=== PATIENT | female | born 1945 | race Caucasian/White ===

== ENCOUNTER 2019-10-18 06:44 | Inpatient (IN) ==
[2019-10-18 07:17] LABS: ALLEN TEST YES; BE -0.9 mmoll (-3.0-3.0); BLOOD TYPE ARTERIAL; HCO3-(ACT) 24.2 mmoll (20.0-26.0); METHB 1.2 % (0.0-1.5); O2(CT) 21.9 mL/dL (15.0-23.0); O2HB 97.2 % (95.0-99.0); PO2(98.6) 269 mmHg (60-100); SAMPLE BLOOD; SAO2 100.3 % (95.0-100.0); THB 15.6 g/dL (11.5-17.4)
[2019-10-18 07:20] LABS: MODALITY NRB; PCO2(98.6) 76 mmHg (35-45)
[2019-10-18] MEDS ORDERED: DUONEB (A & A) INH ONE (07:20)
--- NOTE | 2019-10-18 07:24 | PROVIDER DOCUMENTATION ---
HPI-General Adult - General Chief Complaint: SEPSIS ALERT - D Stated Complaint: RESP DISTRESS Time Seen by Provider: 10/18/19 07:15 Source: EMS, [facility] records Allergies/Adverse Reactions: Patient Allergies Allergy/AdvReac Type Severity Reaction Status Date / Time No Known Allergies Allergy Verified 10/18/19 08:20 - History of Present Illness -Gen Adult Nature of Presenting Problems: FOUND THIS MORINING IN RESP DISTRESS BY N HOME STAFF. HX OF COPD /W P OX USUSALLY 88%, THIS MORN ONL 50%. UP TO 98% WITH EMS NON-REBREATHER. PT IS AWAKE , HARD OF HEARING. Review of Systems - Adult - REVIEW OF SYSTEMS - ADULT Constitutional: reports: no symptoms reported. denies: fever Eyes: reports: no symptoms reported Ears, Nose, Mouth & Throat: reports: no symptoms reported Cardiovascular: reports: no symptoms reported Respiratory: reports: no symptoms reported Gastrointestinal: reports: no symptoms reported Genitourinary: reports: no symptoms reported Musculoskeletal: reports: no symptoms reported Integumentary: reports: no symptoms reported Neurological: reports: no symptoms reported Psychiatric: reports: no symptoms reported Endocrine: reports: no symptoms reported Hematologic/Lymphatic: reports: no symptoms reported Allergic/Immunologic: reports: no symptoms reported All Other Systems: Reviewed and Negative Past History - Adult - PAST MEDICAL HISTORY-ADULT Review of Records: reports: Old Records Reviewed, Nursing Assessment Review, Medications Reviewed, Social history reviewed & non-contributory. Major Childhood Illnesses: reports: denies history Cardiovascular: reports: denies history Respiratory: reports: denies history Gastrointestinal: reports: denies history Obstetrical/Gynecological: reports: denies history Genitourinary: reports: denies history Musculoskeletal: reports: denies history Neurological: reports: denies history Endocrine/Immune: reports: denies history Other Conditions: reports: denies history Physical Exam-General - PHYSICAL EXAM-ADULT Initial Vital Signs Reviewed: Yes (HTN, AFEB) - CONSTITUTIONAL General Appearance: moderate distress - EYES Eyes: PERRL/EOMI - HEAD, EARS, NOSE, MOUTH & THROAT HENMT: moist mucous membranes - NECK Neck: supple - RESPIRATORY Respiratory: wheezing, prolonged expiration - CARDIOVASCULAR Cardiovascular: regular rate, rhythm, no JVD, tachycardia - GASTROINTESTINAL (ABDOMEN) Abdominal Exam: non tender, soft - MUSCULOSKELETAL Extremity: non-tender, no calf tenderness, pedal edema (1/4), swelling - SKIN Integumentary: normal turgor, mottled (MILD) - NEUROLOGIC Neurologic: able bodied tankerman II-XII nml as tested, grossly normal, no motor/sensory deficits - PSYCHIATRIC Psych/Mental Status: normal mood/affect, other (RESPONDS TO VOICE) Progress - PLAN OF CARE/RESULTS Progress/Plan/Lab Results: Vital Signs - 8 hr 10/18/19 06:54 Temperature 98.9 F Pulse Rate 103 H Respiratory Rate 26 H Blood Pressure 176/144 O2 Sat by Pulse Oximetry 98 Orders Category Date Time Status Cardiac Monitoring DIRECTED Care 10/18/19 07:07 Active IV Insertion ORDERED Care 10/18/19 07:07 Active Notify MD of + Sepsis Screen NOW Care 10/18/19 07:07 Active Notify Physician As Ordered Care 10/18/19 07:07 Active CHEST-1 VIEW [RAD] Stat Exams 10/18/19 06:58 Ordered ABG [RESP] Routine Lab 10/18/19 06:58 Ordered BLOOD CULTURE [BLDCUL] Stat Lab 10/18/19 07:09 Ordered CBC WITH ELECTRONIC DIFF [HEME] Stat Lab 10/18/19 07:09 Ordered CK PROFILE [SP CHEM] Stat Lab 10/18/19 07:09 Ordered COMPREHENSIVE METABOLIC PANEL [CHEM] Stat Lab 10/18/19 07:09 Ordered D-DIMER [COAG] Stat Lab 10/18/19 07:09 Ordered LACTATE, PLASMA [CHEM] Q3H Lab 10/18/19 07:15 Uncollected LACTATE, PLASMA [CHEM] Q3H Lab 10/18/19 10:15 Uncollected LACTATE, PLASMA [CHEM] Q3H Lab 10/18/19 13:15 Uncollected PRO B-NATRIURETIC PEPTIDE Stat Lab 10/18/19 07:09 Ordered PROTIME WITH INR [COAG] Stat Lab 10/18/19 07:09 Ordered PTT [COAG] Stat Lab 10/18/19 07:09 Ordered TROPONIN T HIGH SENSITIVITY Stat Lab 10/18/19 07:09 Ordered URINALYSIS W/POSS RFLX CULT [URINALYSIS] Stat Lab 10/18/19 07:07 Uncollected BIPAP Stat Oth 10/18/19 06:59 Active Oxygen Device Stat Oth 10/18/19 07:07 Active EKG [EKG] Stat Ther 10/18/19 06:58 Ordered Result Diagrams: 10/18/19 07:00 10/18/19 07:00 - EKG 1 Time of EKG reading by physician:: 06:51 EKG Read and Signed by:: Zia Issa EKG Interpretation (*Must complete 3 of following elements*): Abnormal Rate: 99 Rhythm: NSR W/ PACs [place]: normal ST Wave: non-specific ST changes - XRAY 1 XRAY Study: Chest Impression: See EMR Report (PUL EDEMA) - CONSULTS/PCP/HOSPITALIST Notification #1 *Consult/PCP/Hospitalist*: STEVEN CONTRERAS Time Discussed: 09:32 Consult Disposition: Admit Departure - Departure Date of Disposition Decision: 10/18/19 Time of Disposition Decision: 09:34 DIAGNOSIS: Respiratory distress, Hypoxemia, Hypercapnia, Pulmonary edema cardiac cause, Hypertension, Hyponatremia Disposition: ADMITTED INPATIENT 09 Certified Medical Emergency: Emergent Condition: Fair Referrals and Follow-Ups: Beth Lynn [Primary Care Provider] - - Critical Care Note This patient required my direct & personal management of CC.: Yes Total Time (mins): 45 Critical Care Statement: This patient required my direct personal management to treat or rule out processes, the absence of which, could potentiallly result in sudden, clinically significant life or limb threatening deterioration. Attestation - Physician/ CHARBEL Attestation The physician spent face to face time with patient:: Yes Advanced Practice Provider documentation review:: Supervising physician onsite and consulted in the evaluation and care of this patient. The physician did have a face to face encounter with the patient.
[2019-10-18] MEDS ORDERED: NITROGLYCERIN TOP ONE (07:28)
[2019-10-18] MEDS ORDERED: APRESOLINE IV ONE (07:28)
[2019-10-18 07:44] LABS: BASO# 0.01 X1000 (0.0-0.2); BASO% 0.1 % (0.0-0.8); EOS# 0.01 X1000 (0.0-0.7); EOS% 0.1 % (0.0-10.0); HEMATOCRIT 44.6 % (37.0-47.0); HEMOGLOBIN 15.1 g/dL (12.0-16.0); IMM GRAN% 0.6 % (0.0-0.5); LYMPH% 3.8 % (20.5-51.1); MCH 31.8 PG (27-31); MCHC 33.9 g/dL (33-37); MCV 93.9 FL (81-99); MONO# 0.67 X1000 (0.11-0.59); MONO% 4.2 % (1.7-9.3); MPV 9.5 FL (7.4-10.4); NEUT# 14.61 X1000 (1.4-6.5); NEUT% 91.2 % (42.2-75.2); PLT 179 X1000 (130-400); RBC 4.75 XMIL (4.2-5.4); RDW 11.9 % (11.5-14.5)
--- NOTE | 2019-10-18 07:44 | EKG Report ---
Test Performed on : 10/18/2019 06:51:39 AM Test Reason : sob Blood Pressure : / mmHG Vent. Rate : 099 BPM Atrial Rate : 099 BPM P-R Int : 164 ms QRS Dur : 078 ms QT Int : 340 ms P-R-T Axes : 074 065 097 degrees QTc Int : 436 ms Sinus rhythm. with premature supraventricular complexes. Possible Left atrial enlargement Nonspecific ST abnormality Abnormal ECG No previous ECGs available Unconfirmed Result
[2019-10-18 07:55] LABS: INR 0.95; PROTIME 12.7 Seconds (11.0-16.0)
--- NOTE | 2019-10-18 07:55 | Diag Imaging Result Doc PS360 ---
CHEST-1 VIEW - 10/18/2019 INDICATION: sob COMPARISON: None FINDINGS: There is mild cardiomegaly and pulmonary vascular congestion. No infiltrates or edema. No large pleural effusion. No pneumothorax. IMPRESSION: Mild cardiomegaly and pulmonary vascular congestion. Electronically signed by Jerome Rock 10/18/2019 7:52 AM
[2019-10-18 07:56] LABS: PTT 26.7 Seconds (22.3-41.8)
[2019-10-18] MEDS ORDERED: ATIVAN IV ONE (08:08)
[2019-10-18] MEDS ORDERED: LASIX IV ONE (08:08)
[2019-10-18] MEDS ORDERED: LEVAQUIN 750 MG/D5W 750 MG/150 ML IVPB IV ONE (08:12)
[2019-10-18 08:25] LABS: ALB/GLOB RATIO 1.4; ALBUMIN 4.2 g/dL (3.5-5.0); CALCIUM 9.3 mg/dL (8.8-10.2); CREATININE 1.8 mg/dL (0.5-0.9); POTASSIUM 5.1 mmol/L (3.5-5.1); TOTAL BILIRUBIN 0.35 mg/dL (0.20-1.00); TOTAL PROTEIN 7.1 g/dL (6.3-8.3)
[2019-10-18 08:28] LABS: CK INDEX 13.2 (0.0-2.5); CK-MB 23.06 ng/mL (0.0-5.0)
[2019-10-18 09:08] LABS: URINE SOURCE CLEAN CATCH
[2019-10-18 09:24] LABS: BILIRUBIN URINE NEGATIVE (NEGATIVE); BLOOD URINE SMALL (NEGATIVE); COLOR YELLOW; GLUCOSE URINE NEGATIVE (NEGATIVE); KETONE URINE NEGATIVE (NEGATIVE); LEUKOCYTES URINE NEGATIVE (NEGATIVE); NITRITE URINE NEGATIVE (NEGATIVE); PH URINE 5.5; PROTEIN URINE 50 mg/dL (NEGATIVE); SP GRAVITY URINE 1.016; TURBIDITY URINE CLEAR (CLEAR); UROBILINOGEN URINE NORMAL (NORMAL)
[2019-10-18 09:26] LABS: UR EPITHELIAL CELLS <10 /HPF (<10); URINE BACTERIA NEGATIVE /HPF; URINE RBC <10 /HPF (<10); URINE WBC <10 /HPF (<10)
[2019-10-18 11:17] LABS: ALLEN TEST YES; BE -0.6 mmoll (-3.0-3.0); BLOOD TYPE ARTERIAL; HCO3-(ACT) 24.4 mmoll (20.0-26.0); METHB 1.1 % (0.0-1.5); O2(CT) 20.9 mL/dL (15.0-23.0); O2HB 96.5 % (95.0-99.0); PO2(98.6) 114 mmHg (60-100); SAMPLE BLOOD; SAO2 99.6 % (95.0-100.0); SRATE 20 BPM; THB 15.3 g/dL (11.5-17.4)
[2019-10-18 11:20] LABS: MODALITY BI PAP; PCO2(98.6) 82 mmHg (35-45); pH(98.6) 7.18 (7.35-7.45)
[2019-10-18] MEDS ORDERED: DUONEB (A & A) INH PRN (11:22)
[2019-10-18] MEDS ORDERED: M.V.I.-12 10 ML, FOLIC ACID 1 MG, MAGNESIUM SULFATE 1 GM, THIAMINE 100 MG in NS 1,000 ML IV ONE (11:22)
[2019-10-18] MEDS ORDERED: ATIVAN IV PRN (11:22)
[2019-10-18] MEDS ORDERED: SALINE LOCK IV FLUID XX ONE (11:22)
[2019-10-18] MEDS ORDERED: ZOFRAN IV PRN (11:22)
[2019-10-18] MEDS: DUONEB (A & A) INH SCH ×4 (11:27→23:13)
[2019-10-18] MEDS ORDERED: DUONEB (A & A) ONE (11:34)
[2019-10-18 12:01] LABS: ALLEN TEST YES; BE -0.7 mmoll (-3.0-3.0); BLOOD TYPE ARTERIAL; HCO3-(ACT) 24.3 mmoll (20.0-26.0); METHB 1.3 % (0.0-1.5); O2(CT) 20.6 mL/dL (15.0-23.0); O2HB 96.4 % (95.0-99.0); PO2(98.6) 117 mmHg (60-100); SAMPLE BLOOD; SAO2 99.7 % (95.0-100.0); SRATE 25 BPM; THB 15.1 g/dL (11.5-17.4); pH(98.6) 7.23 (7.35-7.45)
[2019-10-18 12:02] LABS: MODALITY BI PAP
[2019-10-18 12:03] LABS: PCO2(98.6) 69 mmHg (35-45)
[2019-10-18] MEDS: SOLU-MEDROL IV SCH ×2 (12:37→22:19)
--- NOTE | 2019-10-18 12:41 | HISTORY AND PHYSICAL ---
PRIMARY CARE PROVIDER: Diana Andre. CHIEF COMPLAINT: Per senior care, low O2 saturations. HISTORY OF PRESENT ILLNESS: Ms. Talavera is a 74-year-old, female who was brought in from the senior care for low O2 saturations. Per their records, she has a past medical history of COPD, hyponatremia, hypertensive heart disease, hyperkalemia, acute on chronic hypercapnic, hypoxemic respiratory failure, osteoarthritis, weakness, nicotine use. Workup in the ED revealed a white count of 16, hyponatremia, hypercarbia, and metabolic acidosis, congestive heart failure, slightly elevated troponin. She was placed on BiPAP, became agitated, was given 2 mg of Ativan, placed in bilateral restraints, and given 40 of IV Lasix. Upon hospitalist examination, the patient initially could not be awoken with a hard sternal rub several times. Stepped out of the room to order a stat ABG and call Dr. Jones. Upon returning back into the room, a son was at the bedside along with Dr. Jones. The patient was starting to come around. Son at bedside reports that the patient is an alcoholic and drinks 6 to 8 beers per night. She has also had TIAs in the past. She was most recently at [facility] and was discharged 2 days ago and continued to have low O2 levels upon discharge. He reports she has had episodes of hyponatremia in the past secondary to not eating and drinking. She is currently withdrawing from pain and grimacing but really more on the right side than the left. She does have a reducible umbilical hernia. Son at the bedside does wish that she remains a Full Code for now until he speaks with a brother that is currently out of town, in [place] working. We will get nephrology as well as pulmonology on board. Her repeat ABGs show worsening metabolic acidosis and hypercarbia. We will place her on a banana bag and p.r.n. Ativan, and watch her closely for delirium tremens. PAST MEDICAL HISTORY: Per HPI. PAST SURGICAL HISTORY: Unknown. FAMILY HISTORY: Unknown. ALLERGIES: No known drug allergies. MEDICATIONS: Home medications are being compiled but on senior care list, it looks like she was on Advair, Medrol Dosepak, and Levaquin. REVIEW OF SYSTEMS: Hard to obtain secondary to the patient being pretty much obtunded. PHYSICAL EXAMINATION: VITAL SIGNS: Temperature is 98.2 degrees, heart rate 105, respirations 24, blood pressure 130/75, O2 is 95% on BiPAP. GENERAL: Ms. Talavera is a 74-year-old, female who looks critically ill, lying on the stretcher, on BiPAP. HEENT: Atraumatic, normocephalic. PERRL but sluggish. CARDIOVASCULAR: S1, S2 appreciated. No murmurs, gallops, rubs noted. RESPIRATORY: Lung sounds, scattered rhonchi bilaterally, decreased in the bases. GI: Soft. Appears to be nontender. Hypoactive bowel sounds in 4 quadrants. Reducible umbilical hernia. GENITOURINARY: Rogers draining clear urine but not much output. EXTREMITIES: Lower extremities are mottled, cool to the touch. She has multiple stages of bruising to upper and lower extremities. NEUROLOGIC: Could not assess. The patient is currently in bilateral wrist restraints. DIAGNOSTIC DATA: Chest x-ray, mild cardiomegaly and pulmonary vascular congestion. LABORATORY DATA: White count 16, hemoglobin and hematocrit 15 and 44, platelet count 179,000. Initial ABG, pH 7.20, pCO2 of 76, PO2 of 269, O2 of 100% on nonrebreather. Chemistry: Sodium 116, potassium 5.1, BUN 57, creatinine 1.8, blood glucose is 111. CK 175, CKI 13, CK-MB 23.06, troponin 79. ProBNP is 8885. Plasma lactate 1.1. ASSESSMENT AND PLAN: 1. Acute on chronic hypoxemic, hypercapnic respiratory failure with metabolic acidosis. We will continue on BiPAP. They have made adjustments to her BiPAP. We will consult pulmonology. Place her in intensive care unit. 2. Chronic obstructive pulmonary disease exacerbation. Continue on BiPAP. Await pulmonology's recommendations. Continue on bronchodilators, aggressive pulmonary toilet, intravenous steroids. 3. Severe hyponatremia, possibly secondary to her beer consumption. Her son reports she does not really eat or drink. We will do a hyponatremic workup. Consult nephrology for their assistance. Start her on normal saline. Watch her sodium levels closely. We will check a head CT. 4. Acute kidney injury. Unsure if there is any underlying chronic kidney disease. Again, we will consult nephrology. Appreciate their input. 5. Elevated proBNP. There is some vascular congestion seen on her chest x-ray. Son is not aware of any congestive heart failure. She was given a dose of intravenous Lasix in the emergency department. We will hold off on any further diuresis, given her severe hyponatremia. We do need to give her some intravenous fluids. We will order and check an echocardiogram, and recheck a ProBNP in the morning. 6. Alcoholic. Patient does drink 6 to 8 beers per night. Her last drink was 5 days ago when she was admitted to [facility]. We will give her daily banana bags, Ativan as needed for any alcohol withdrawal, watch her closely for delirium tremens. 7. Hypertensive heart disease. We will do as-needed Apresoline. 8. Probable sepsis. The patient has been in the hospital as well as rehab. We will treat her initially with broad-spectrum antibiotics. Await her cultures. Recheck a chest x-ray in the morning. Rule out any aspiration pneumonia. Continue with Zyvox and cefepime renally dosed for now. 9. Further recommendation to follow physician evaluation, laboratory and diagnostic data. Dictated by HEDY Mckeon for Sheldon Fallon MD cc: MD Kye Olvera MD Mamoun I. Najjar, MD
--- NOTE | 2019-10-18 12:46 | HISTORY AND PHYSICAL ---
ADDENDUM: The patient was seen and examined by me [id number]. All laboratory, vital signs, and images were reviewed. Her son was at the bedside. She is coming from a rehab center. It looks like she was discharged a couple days ago from [facility]. She was hospitalized there for apparently a few days due to respiratory failure. As per the son, she was having problems with hypoxemia at the rehab center and today, he was called and he was notified that this patient was about to be transferred to this hospital. When I examined the patient, this patient was lethargic. She was able to open a little bit her eyes with painful stimulation and withdrawal with pain, mostly on the right side but not the left side, just minimally on the left side. I do not know if she has a past medical history of stroke or a recent stroke at this moment. We will get a CT scan of the head to rule out any kind of bleeding and probably, we need to do an MRI in the future if she has focal deficits. She seems to be remarkably sick. She is on the BiPAP machine at this moment. She has a long history of chronic obstructive pulmonary disease with respiratory failure and possible home O2. As per the son, she is also an alcoholic and she has been drinking for the past 40 years. It looks like her last drink was around 5 days ago or so. She is tachycardic and tachypneic, and her oxygen saturation was dropping and placed on the BiPAP machine. She is retaining pCO2 and she is acidotic because of that. Her bicarb level is also low. She has a kidney disease. I do not know if this is new or old but as per the son, she has problems with the sodium level and she has been hyponatremic before multiple times. The plan is going to continue with the BiPAP machine, consult Dr. Denis, consult also nephrology department to take care of the kidney dysfunction and hyponatremia. She will be transferred to the ICU. She has been placed on antibiotics as well. She received a dose of Lasix in the emergency room but I will put this patient on gentle fluid hydration. She seems to be slightly dehydrated. I do not think she has been eating or drinking too much for the past couple days. We will go ahead and put her on steroids as well since she is wheezing. I talked to the son at the bedside, like I mentioned before, and I told him that she seems to be remarkably sick. I do not know at this point if she is going to get better or not, and he seems to understand. We discussed also about the advanced directive and for now, he will keep this patient Full Code. We discussed about this around 15 to 17 minutes. I agree with the rest of the nurse practitioner's assessment and plan. cc: Sheldon Fallon MD
[2019-10-18] MEDS: MAXIPIME 0.5 GM in NS 50 ML IV SCH ×2 (13:07→22:22)
[2019-10-18] MEDS: NS 1,000 ML IV SCH (14:27)
[2019-10-18] MEDS: ZYVOX 600 MG/D5W 600 MG/300 ML IVPB IV SCH ×2 (14:27→22:22)
--- NOTE | 2019-10-18 15:41 | Diag Imaging Result Doc PS360 ---
EXAM: CT HEAD W/O CONTRAST INDICATION: AMS TECHNIQUE: This exam was performed using automated exposure control, adjustment of mA or kV according to patient size, and/or use of iterative reconstruction technique. COMPARISON: None. FINDINGS: There is extensive low-attenuation in the periventricular and subcortical white matter suggesting advanced microangiopathy. There are several chronic appearing lacunar infarcts involving the thalamus bilaterally. There is focal encephalomalacia involving the right cerebellar hemisphere inferiorly. There is no definite acute infarct given the limited sensitivity of CT versus MRI. There is no discrete intracranial mass, mass effect, or intracranial hemorrhage. There is a small right maxillary sinus air-fluid level suggesting sinusitis. There are bilateral mastoid air cell effusions. Surrounding soft tissues and bony structures are essentially unremarkable, otherwise. IMPRESSION: 1.Advanced chronic appearing changes as detailed above. No definite acute intracranial pathology. 2.Right maxillary sinus air-fluid level suggesting sinusitis and bilateral mastoid air cell effusions. Electronically signed by Peyman Cornelius 10/18/2019 3:39 PM
[2019-10-18] MEDS: APRESOLINE IV PRN (17:52)
[2019-10-18] MEDS: ATIVAN IV PRN ×2 (18:33→22:20)
[2019-10-18 18:36] LABS: URINE SOURCE CATH
[2019-10-18 18:41] LABS: BILIRUBIN URINE NEGATIVE (NEGATIVE); BLOOD URINE MODERATE (NEGATIVE); COLOR YELLOW; GLUCOSE URINE NEGATIVE (NEGATIVE); KETONE URINE NEGATIVE (NEGATIVE); LEUKOCYTES URINE NEGATIVE (NEGATIVE); NITRITE URINE NEGATIVE (NEGATIVE); PROTEIN URINE NEGATIVE (NEGATIVE); TURBIDITY URINE CLEAR (CLEAR); UROBILINOGEN URINE NORMAL (NORMAL)
[2019-10-18 18:42] LABS: UR EPITHELIAL CELLS <10 /HPF (<10); URINE BACTERIA NEGATIVE /HPF; URINE RBC 20-40 /HPF (<10); URINE WBC <10 /HPF (<10)
--- NOTE | 2019-10-18 19:13 | ECHO REPORT ---
ORDER DATE: 10/18/2019 SUMMARY: 1. Very difficult and limited study due to limited acoustic window quality. 2. Aortic valve appears without evidence of structural abnormality and appears to open adequately on 2-dimensional images. Mitral and tricuspid valves are without gross structural abnormality while pulmonic valve is not well demonstrated. There is mild tricuspid regurgitation. Aortic root is grossly normal in size. 3. Normal left ventricular dimension suggested. Estimated ejection fraction appears to be at least 65%. No obvious wall motion abnormality can be appreciated. Left atrium is grossly normal in size. The right atrium right ventricle appear moderately enlarged with mildly reduced right ventricular systolic function. 4. No pericardial effusion. 5. Appearance of inferior vena cava suggests normal central venous pressure. cc: MD Sheldon Lee MD
--- NOTE | 2019-10-18 22:25 | CONSULTATION ---
DATE OF CONSULTATION: 10/18/2019 CHIEF COMPLAINT: Hypoxia. HISTORY OF PRESENT ILLNESS: This is a 74-year-old female who was [facility] for [facility] saturations. Ms. Talavera has a past medical history of COPD, hyponatremia, hypertension, osteoarthritis and tobacco use. Chest x-ray revealed mild cardiomegaly and pulmonary vascular congestion. PAST MEDICAL HISTORY: Please see HPI. PAST SURGICAL HISTORY: Unknown. FAMILY HISTORY: Unknown. ALLERGIES: No known drug allergies. MEDICATIONS: Please see home reconciliation list. REVIEW OF SYSTEMS: A 10-point review of systems was obtained and the pertinent is listed within the HPI, otherwise noncontributory. PHYSICAL EXAMINATION: VITAL SIGNS: Temperature 98.2, heart rate 105, respirations 24, blood pressure 130/75, O2 saturation at 95% on BiPAP. GENERAL: This is a 74-year-old female critically ill lying in bed, lethargic, on BiPAP. HEENT: Head is atraumatic, normocephalic. PERRLA noted but sluggish. CARDIOVASCULAR: S1, S2 appreciated. No murmurs, gallops or rubs noted. RESPIRATORY: Lung sounds scattered rhonchi bilaterally, decreased in the bases. GASTROINTESTINAL: Soft, nontender, hypoactive bowel sounds in all 4 quadrants. Has a reducible umbilical hernia. EXTREMITIES: Mottled, cool to touch. No edema. NEUROLOGIC: Lethargic, aroused by painful stimuli. DIAGNOSTIC DATA: Mentioned in the HPI. LABORATORY DATA: White blood cells 16. Red blood cells 4.75. Hemoglobin 15.1. Hematocrit 44.6. PT 12.7. INR 0.95. PTT 26.7. D-dimer 0.78. Blood gases: pH 7.23, PCO2 of 69, PO2 of 117, HCO3 of 24.3, base excess -0.7, oxyhemoglobin 96.4. Chemistry: Sodium 116, potassium 5.1, chloride 73, carbon dioxide 20, BUN 57, creatinine 1.8, glucose 111, calcium 9.3, AST 45, ALT 29. CK-MB 23.06. Troponin 71. ProBNP 8885. Urine was negative. ASSESSMENT AND PLAN: 1. Acute on chronic hypoxemic respiratory failure. Continue BiPAP use and supplemental O2. 2. Chronic obstructive pulmonary disease. Continue bronchodilators and steroids. 3. Congestive heart failure, mild. 4. Probable pneumonia. Continue antibiotics as prescribed. 5. Lethargy. Discontinue Ativan. Use caution with benzodiazepines and narcotics. TIME: I spent 32 minutes with this patient. Thank you for the courtesy of this consult. Dictated by HEDY Fisher for Yelitza Denis MD cc: HEDY Fisher MD
[2019-10-19] MEDS: NS 1,000 ML IV SCH (02:09)
[2019-10-19] MEDS: ATIVAN IV PRN ×4 (02:09→20:49)
[2019-10-19] MEDS: DUONEB (A & A) INH SCH ×6 (03:50→23:15)
[2019-10-19] MEDS: SOLU-MEDROL IV SCH ×3 (03:56→20:01)
[2019-10-19 05:22] LABS: ALLEN TEST YES; BE 1.2 mmoll (-3.0-3.0); BLOOD TYPE ARTERIAL; HCO3-(ACT) 25.9 mmoll (20.0-26.0); METHB 1.5 % (0.0-1.5); O2(CT) 16.1 mL/dL (15.0-23.0); O2HB 96.6 % (95.0-99.0); PO2(98.6) 139 mmHg (60-100); SAMPLE BLOOD; SAO2 99.9 % (95.0-100.0); SRATE 4 BPM; THB 11.7 g/dL (11.5-17.4); pH(98.6) 7.33 (7.35-7.45)
[2019-10-19 05:47] LABS: ALB/GLOB RATIO 1.3; ALBUMIN 3.4 g/dL (3.5-5.0); CALCIUM 8.7 mg/dL (8.8-10.2); CREATININE 1.6 mg/dL (0.5-0.9); POTASSIUM 4.5 mmol/L (3.5-5.1); TOTAL BILIRUBIN 0.36 mg/dL (0.20-1.00); TOTAL PROTEIN 6.1 g/dL (6.3-8.3)
[2019-10-19 05:49] LABS: MODALITY BI PAP; PCO2(98.6) 53 mmHg (35-45)
[2019-10-19 06:37] LABS: MAGNESIUM 1.6 mg/dL (1.5-2.7); PHOSPHORUS 3.5 mg/dL (2.7-4.5)
--- NOTE | 2019-10-19 06:41 | Diag Imaging Result Doc PS360 ---
CHEST-PORTABLE - 10/19/2019 INDICATION: short of breath COMPARISON: 10/18/2019 FINDINGS: Stable COPD changes. There has been improvement in the increased markings in the lung bases consistent with mild edema or bronchitis. No new infiltrates. IMPRESSION: COPD. Improved aeration of the lung bases. Electronically signed by Jerome Rock 10/19/2019 6:39 AM
[2019-10-19 06:43] LABS: HEMATOCRIT 41.1 % (37.0-47.0); HEMOGLOBIN 13.9 g/dL (12.0-16.0); IMM GRAN# 0.04 X1000 (0.0-0.04); IMM GRAN% 0.3 % (0.0-0.5); LYMPH# 0.27 X1000 (1.2-3.4); LYMPH% 1.8 % (20.5-51.1); MCH 31.8 PG (27-31); MCHC 33.8 g/dL (33-37); MCV 94.1 FL (81-99); MONO# 0.29 X1000 (0.11-0.59); MONO% 1.9 % (1.7-9.3); MPV 9.3 FL (7.4-10.4); NEUT# 14.81 X1000 (1.4-6.5); PLT 179 X1000 (130-400); RBC 4.37 XMIL (4.2-5.4); RDW 11.9 % (11.5-14.5); WBC 15.41 X1000 (4.8-10.8)
--- NOTE | 2019-10-19 07:23 | PROGRESS NOTE ---
DATE: 10/19/2019 SUBJECTIVE: The patient is still on the BiPAP machine. She is still encephalopathic. She is opening her eyes with pain stimulation, but she is not talking to me or following commands. She seems to be remarkably sick. I will continue with the same management for now. Pulmonary Department already evaluated this patient. OBJECTIVE: Vital Signs: Temperature 98.6 degrees, pulse 103, respiratory rate 25, blood pressure 140/72, oxygen saturation 100% on the BiPAP machine. HEENT: Head normocephalic, no trauma. Neck: Supple. No JVD. Central trachea. Chest: Decreased breath sounds globally with bilateral rhonchi. The breath sounds are decreased at the bases. Abdomen: Soft, nondistended. Positive bowel sounds. Extremities: They are cool to touch and mottled. Multiple bruises. Neurological examination: This patient is lethargic, but she is able to open her eyes a little bit after pain stimulation. LABORATORY: Pending lab work at this moment. ASSESSMENT AND PLAN: 1. Acute on chronic hypoxemic, hypercarbic respiratory failure. We need to continue with the BiPAP machine. Pulmonary Department following this patient. We will continue to monitor. Likely this is due to chronic obstructive pulmonary disease exacerbation, probably underlying pneumonia. 2. Chronic obstructive pulmonary disease exacerbation. Continue BiPAP machine. Continue with steroids, bronchodilators, oxygen. 3. Severe hyponatremia. It looks like this hyponatremia is chronic. I will continue with the same management. I will ask Dr. Galvan to see this patient. 4. Acute kidney injury. We will monitor for now. She seems to have a good urine output. I am not sure if this is acute or chronic. I do not have any previous records. 5. Elevated proBNP with some vascular congestion on the chest x-ray. I will request an echocardiogram and go from there. We are holding the intravenous fluids. She received a dose of Lasix. 6. History of alcohol abuse. This patient is an alcoholic. It looks like she drinks between 6 to 8 beers per night, and she has been doing this for the past 40 years. 7. Hypertension, stable. 8. Possible sepsis. Aware. Continue with broad-spectrum antibiotics. cc: Sheldon Fallon MD MTDD
[2019-10-19 09:18] LABS: LYMPHS 1 % (21-51); MONO 3 % (1-9); SEGS 96 % (42-75)
[2019-10-19] MEDS: M.V.I.-12 10 ML, FOLIC ACID 1 MG, MAGNESIUM SULFATE 1 GM, THIAMINE 100 MG in NS 1,000 ML IV SCH (09:40)
[2019-10-19] MEDS: MAXIPIME 0.5 GM in NS 50 ML IV SCH ×2 (11:54→22:50)
[2019-10-19] MEDS: D5 NS 1,000 ML IV SCH ×2 (11:54→16:48)
[2019-10-19] MEDS: ZYVOX 600 MG/D5W 600 MG/300 ML IVPB IV SCH ×2 (11:58→22:51)
[2019-10-19 12:43] LABS: CALCIUM 8.8 mg/dL (8.8-10.2); CREATININE 1.5 mg/dL (0.5-0.9); POTASSIUM 4.3 mmol/L (3.5-5.1)
--- NOTE | 2019-10-19 18:18 | NEPHROLOGY CONSULTATION ---
DATE: 10/19/2019 REQUESTING PROVIDER: HEDY Mckeon REASON FOR CONSULTATION: Assistance with hyponatremia, medical management and beer consumption. HISTORY OF PRESENT ILLNESS: History is obtained entirely from the chart, as she is obtunded. She was brought from the retirement for hypoxemia and shortness of breath. Her evaluation in the emergency room found hypercarbia, hyponatremia, acidosis and heart failure. She was treated with O2 and then BiPAP. She required Ativan for chemical restraint. Ultimately, she was admitted to the intensive care unit for hypoxemia and respiratory failure. Apparently she was admitted to the retirement after admission at [facility]. Heavy alcohol abuse at home. PAST MEDICAL HISTORY: As above. HOME MEDICATIONS: Include Advair, [place], levofloxacin, Combivent. ALLERGIES: None listed. SOCIAL HISTORY: As above. FAMILY HISTORY: Noncontributory. REVIEW OF SYSTEMS: Noncontributory. PHYSICAL EXAMINATION: Vital Signs: Blood pressure 140/72, heart rate 103, respirations 25. Afebrile. Generally: Writhing in the bed. Moves her head, eyes, arms and limbs but does not focus on me at all. BiPAP is in place. Skin: Pale and dry. Conjunctivae are pale. Pupils are equal. Oropharynx is dry. Neck: Neck veins are not appreciated. PMI is difficult to palpate. Regular with an S4. No murmurs. Lungs: Have equal breath sounds with scattered crackles and wheezes. Abdomen: Soft and nontender. Bowel sounds are present. No palpable organomegaly or masses. Extremities: No edema, clubbing or cyanosis. IMPRESSION: Hyponatremia, improving modestly. Urine sodium was 11 with a urine osmolality of 465. We are acting under the presumption that she has intravascular volume depletion, and she is receiving D5 normal saline at 100 mL/hr. Continue this treatment for the next 24 hours and monitor her sodium carefully. Her creatinine was 1.8 on presentation and 1.6 today. We do not have any old data to compare. I will perform s renal ultrasound and follow her labs expectantly. cc: Kye Galvan MD
[2019-10-19 19:21] LABS: CALCIUM 8.9 mg/dL (8.8-10.2); CREATININE 1.4 mg/dL (0.5-0.9); POTASSIUM 4.3 mmol/L (3.5-5.1)
[2019-10-19] MEDS: APRESOLINE IV PRN (20:49)
[2019-10-20] MEDS: ATIVAN IV PRN ×4 (00:21→20:30)
[2019-10-20] MEDS: SOLU-MEDROL IV SCH ×3 (03:08→20:29)
[2019-10-20] MEDS: DUONEB (A & A) INH SCH ×6 (03:35→23:30)
[2019-10-20] MEDS: D5 NS 1,000 ML IV SCH ×4 (04:34→22:54)
[2019-10-20 05:29] LABS: ALLEN TEST YES; BE 0.8 mmoll (-3.0-3.0); BLOOD TYPE ARTERIAL; HCO3-(ACT) 25.5 mmoll (20.0-26.0); O2(CT) 17.9 mL/dL (15.0-23.0); O2HB 96.2 % (95.0-99.0); PCO2(98.6) 39 mmHg (35-45); PO2(98.6) 165 mmHg (60-100); SAMPLE BLOOD; SAO2 99.8 % (95.0-100.0); pH(98.6) 7.42 (7.35-7.45)
[2019-10-20 05:30] LABS: MODALITY BI PAP
[2019-10-20 06:50] LABS: HEMATOCRIT 39.8 % (37.0-47.0); HEMOGLOBIN 13.3 g/dL (12.0-16.0); IMM GRAN# 0.06 X1000 (0.0-0.04); IMM GRAN% 0.4 % (0.0-0.5); LYMPH# 0.32 X1000 (1.2-3.4); MCH 31.6 PG (27-31); MCHC 33.4 g/dL (33-37); MCV 94.5 FL (81-99); MONO# 0.52 X1000 (0.11-0.59); MONO% 3.2 % (1.7-9.3); MPV 9.5 FL (7.4-10.4); NEUT# 15.48 X1000 (1.4-6.5); NEUT% 94.4 % (42.2-75.2); PLT 198 X1000 (130-400); RBC 4.21 XMIL (4.2-5.4); WBC 16.38 X1000 (4.8-10.8)
--- NOTE | 2019-10-20 07:04 | Diag Imaging Result Doc PS360 ---
EXAM: CHEST-1 VIEW HISTORY: SOB TECHNIQUE: Single view COMPARISON: 10/19/2019 FINDINGS: The lungs are hyperexpanded. No cardiomegaly. Mild increased interstitial markings. No consolidation. No pleural effusions identified. IMPRESSION: Emphysema with mild pulmonary edema or fibrosis Electronically signed by Casey Bustos 10/20/2019 7:02 AM
[2019-10-20 07:29] LABS: ALB/GLOB RATIO 1.2; ALBUMIN 3.2 g/dL (3.5-5.0); CALCIUM 8.9 mg/dL (8.8-10.2); CREATININE 1.3 mg/dL (0.5-0.9); MAGNESIUM 1.8 mg/dL (1.5-2.7); PHOSPHORUS 2.7 mg/dL (2.7-4.5); POTASSIUM 4.6 mmol/L (3.5-5.1); TOTAL BILIRUBIN 0.33 mg/dL (0.20-1.00); TOTAL PROTEIN 5.8 g/dL (6.3-8.3)
[2019-10-20 08:30] LABS: LYMPHS 6 % (21-51); MONO 2 % (1-9); SEGS 92 % (42-75)
[2019-10-20] MEDS: M.V.I.-12 10 ML, FOLIC ACID 1 MG, MAGNESIUM SULFATE 1 GM, THIAMINE 100 MG in NS 1,000 ML IV SCH (08:33)
[2019-10-20] MEDS: MAXIPIME 0.5 GM in NS 50 ML IV SCH ×2 (11:36→22:54)
[2019-10-20] MEDS: ZYVOX 600 MG/D5W 600 MG/300 ML IVPB IV SCH ×2 (11:49→22:54)
--- NOTE | 2019-10-20 13:57 | PROGRESS NOTE ---
DATE: 10/20/2019 SUBJECTIVE: This patient is still on the BiPAP machine. She is still lethargic/encephalopathic. She is opening her eyes when I call her name a little bit, but also with some with pain stimulation, she is withdrawing with pain as well. She is not following commands. She is still remarkably sick. Continue with same management for now. Her ABGs are a little bit better today compared with the previous days. Sodium level is improving slowly. BUN and creatinine getting better as well. Chest x-ray showed emphysema with mild pulmonary edema or fibrosis. OBJECTIVE: Vital Signs: Temperature 97.2 degrees, pulse 97, respiratory rate 17, blood pressure 149/92, oxygen saturation 98% on the BiPAP machine. HEENT: Head normocephalic, no trauma. PERRLA. Neck: Supple. I cannot see JVD. Central trachea. Chest: Decreased breath sounds globally with bilateral rhonchi. Her breath sounds are decreased at the bases with some crepitus. Abdomen: Soft, nondistended. Positive bowel sounds. Extremities: No clubbing, no cyanosis. They are a little bit cold to touch. Multiple bruises. Neurological examination: The patient is lethargic, but she is opening her eyes a little bit with my voice and pain stimulation. LABORATORY: WBC 16.3, hemoglobin 13.3, hematocrit 39.8, platelets 198. Sodium 126, potassium 4.6, chloride 91, bicarbonate 22. BUN 43, creatinine 1.3 glucose 195, calcium 8.9. AST 30, ALT 22, alkaline phosphatase 65, albumin 32. ASSESSMENT AND PLAN: 1. Acute on chronic hypoxemic and hypercarbic respiratory failure. It looks like she has been on home oxygen. We need to continue with the BiPAP machine for now. Pulmonary Department following this patient closely. She is still lethargic. We will continue to monitor. Chest x-ray showed emphysema and pulmonary fibrosis, probably a little bit of pulmonary edema. Continue with the same management. 2. Chronic obstructive pulmonary disease exacerbation. Continue with the BiPAP machine, steroids, bronchodilator and oxygen. 3. Severe hyponatremia. This is getting better slowly. Seems to be chronic, probably due to dehydration at this moment. 4. Kidney dysfunction. I do not have any previous records from this patient. I do not know if this is acute or chronic, but this is getting better slowly. BUN and creatinine are trending down. 5. Elevated proBNP with some vascular congestion on the chest x-ray. Echocardiogram showed a good ejection fraction; it looks like there is a mild reduction of the right ventricular systolic function, but the study was a very difficult and limited study due to limited acoustic window quality. 6. History of alcohol abuse. This patient is an alcoholic. It looks like she drinks between 6 to 8 beers per night, and she has been doing this for the past 40 years. 7. Hypertension, stable. 8. Possible sepsis. Aware. Continue with broad spectrum antibiotics. Overall her lab work and vitals are stable at this moment, but she is still remarkably sick. She has been getting agitated on and off. I will continue with the same management. Pulmonary Department and Nephrology Department on board. cc: Sheldon Fallon MD
--- NOTE | 2019-10-20 16:51 | PROVIDER PROGRESS NOTE ---
Progress Note Progress Note Dr. Denis Progress Note/Pulmonary and or critical care We appreciated progress of care, Complications, change in diagnosis, and instructions to patient. Subjective: We note the level of consciousness, bed (chair) position, family presence (if any), level of lethargy, feeling of symptoms, and changes from baseline condition/symptom. Patient is sleeping. Lethargic. Responds to touch. Objective: Vital Signs: We reviewed EMR current values for Pulse rate, Blood pressure, Pulse rate, respiratory rate and Pulse oximetry. Also noted other values and trends if present (e.g. I/O, CVP). T 97.1 , VT 101 , RR 58 , BP 113/53 and SaO2 93% Bipap-NC Physical Examination: General: Lying in bed with no acute distress noted. Lethargic/confused. On Bipap/NC. family at bedside. HEENT: Normocephalic. Atraumatic. Trachea midline. . Chest: reduced air entry, symmetrical chest excursion. CVS: Regular rate and rhythm with S1 and S2 appreciated. Abdomen: Soft. Nondistended. Normoactive bowel sounds in all 4 quadrants noted. Extremities: no edema, clubbing or cyanosis. Neuro: Sedated. Management, face to face evaluation by Dr. Denis. HEDY Fisher did scr ibing only. Labs and Radiology: Reviewed available labs and radiology values available at time of EMR review Laboratory Results 10/19/19 10/20/19 10/20/19 18:48 04:20 05:30 WBC RBC Hgb Hct MCV MCH MCHC RDW Std Deviation Plt Count MPV Immature Gran % (Auto) Neut % (Auto) Lymph % (Auto) [place] % (Auto) Eos % (Auto) Baso % (Auto) Immature Gran # (Auto) Neut # (Auto) Lymph # (Auto) [place] # (Auto) Eos # (Auto) Baso # (Auto) Segmented Neutrophils Lymphocytes Monocytes Specimen Type ARTERIAL Sample Site R BRACHIAL pH 7.42 pCO2 39 pO2 165 H HCO3 25.5 Base Excess 0.8 Oxyhemoglobin 96.2 ABG O2 Sat (Calculated) 17.9 ABG O2 Saturation 99.8 ABG Carboxyhemoglobin 1.60 ABG Methemoglobin 2.0 H Maximiliano Test YES A-a O2 Difference 71.0 Total Hemoglobin 13.0 Lactate 1.20 Blood Gas Modality BI PAP Vent Mode BIPAP FiO2 % 40.0 Inspiratory BiPAP 20.0 Expiratory BiPAP 6.0 Sodium 125 L 126 L Potassium 4.3 4.6 Chloride 86 L 91 L Carbon Dioxide 26 22 L Anion Gap 13 13 BUN 49 H 43 H Creatinine 1.4 H 1.3 H Estimated GFR/1.73 m2 37 40 BUN/Creatinine Ratio 35 33 Glucose 163 H 195 H Calculated Osmolality 268 270 Calcium 8.9 8.9 Phosphorus 2.7 Magnesium 1.8 Total Bilirubin 0.33 AST 30 ALT 22 Alkaline Phosphatase 65 Total Protein 5.8 L Albumin 3.2 L Globulin 2.6 Albumin/Globulin Ratio 1.2 10/20/19 05:30 WBC 16.38 H RBC 4.21 Hgb 13.3 Hct 39.8 MCV 94.5 MCH 31.6 H MCHC 33.4 RDW Std Deviation 12.0 Plt Count 198 MPV 9.5 Immature Gran % (Auto) 0.4 Neut % (Auto) 94.4 H Lymph % (Auto) 2.0 L [place] % (Auto) 3.2 Eos % (Auto) 0.0 Baso % (Auto) 0.0 Immature Gran # (Auto) 0.06 H Neut # (Auto) 15.48 H Lymph # (Auto) 0.32 L [place] # (Auto) 0.52 Eos # (Auto) 0.00 Baso # (Auto) 0.00 Segmented Neutrophils 92 H Lymphocytes 6 L Monocytes 2 Specimen Type Sample Site pH pCO2 pO2 HCO3 Base Excess Oxyhemoglobin ABG O2 Sat (Calculated) ABG O2 Saturation ABG Carboxyhemoglobin ABG Methemoglobin Maximiliano Test A-a O2 Difference Total Hemoglobin Lactate Blood Gas Modality Vent Mode FiO2 % Inspiratory BiPAP Expiratory BiPAP Sodium Potassium Chloride Carbon Dioxide Anion Gap BUN Creatinine Estimated GFR/1.73 m2 BUN/Creatinine Ratio Glucose Calculated Osmolality Calcium Phosphorus Magnesium Total Bilirubin AST ALT Alkaline Phosphatase Total Protein Albumin Globulin Albumin/Globulin Ratio ASSESSMENT AND PLAN: 1. Acute on chronic hypoxemic respiratory failure. Continue BiPAP use and supplemental O2. 2. Chronic obstructive pulmonary disease. Continue bronchodilators and steroids. 3. Congestive heart failure, mild. 4. Probable pneumonia. Continue antibiotics as prescribed. 5. Lethargy. Benzo's for DT's Use caution with benzodiazepines and narcotics. We titrated Bipap and supplemental oxygen per patient response and protocol. TIME: I spent 31 minutes with this patient.
[2019-10-20 19:13] LABS: CALCIUM 9.1 mg/dL (8.8-10.2); CREATININE 1.4 mg/dL (0.5-0.9); POTASSIUM 4.1 mmol/L (3.5-5.1)
--- NOTE | 2019-10-20 23:50 | NEPHROLOGY PROGRESS NOTE ---
DATE: 10/20/2019 SUBJECTIVE: She is still very sedated and difficult to arouse. OBJECTIVE: Vital Signs: Blood pressure 145/57, heart rate 95, respirations 14, afebrile. General: No acute distress. Skin: Warm and dry. Neck: Veins are not appreciated. Heart: Regular. Lungs: Equal, no crackles. Abdomen: Obese, nontender. Bowel sounds present. Extremities: No edema, clubbing or cyanosis. IMPRESSION: Hyponatremia. Hypovolemic at the time. Improved with volume resuscitation. Creatinine now 1.3. We will sign off. cc: Kye Galvan MD
[2019-10-21] MEDS: ATIVAN IV PRN ×3 (00:23→20:18)
[2019-10-21 01:47] LABS: CALCIUM 9.3 mg/dL (8.8-10.2); CREATININE 1.3 mg/dL (0.5-0.9); POTASSIUM 4.4 mmol/L (3.5-5.1)
[2019-10-21] MEDS: DUONEB (A & A) INH SCH ×6 (03:45→23:21)
[2019-10-21] MEDS: SOLU-MEDROL IV SCH ×3 (04:59→20:18)
[2019-10-21 05:41] LABS: ALLEN TEST YES; BE -0.4 mmoll (-3.0-3.0); BLOOD TYPE ARTERIAL; HCO3-(ACT) 24.6 mmoll (20.0-26.0); METHB 1.2 % (0.0-1.5); O2HB 96.8 % (95.0-99.0); PO2(98.6) 143 mmHg (60-100); SAMPLE BLOOD; SAO2 99.8 % (95.0-100.0); THB 12.3 g/dL (11.5-17.4); pH(98.6) 7.32 (7.35-7.45)
[2019-10-21 05:43] LABS: MODALITY BI PAP; PCO2(98.6) 51 mmHg (35-45)
[2019-10-21 06:07] LABS: HEMATOCRIT 39.5 % (37.0-47.0); HEMOGLOBIN 12.7 g/dL (12.0-16.0); MCH 31.2 PG (27-31); MCHC 32.2 g/dL (33-37); MCV 97.1 FL (81-99); MPV 9.5 FL (7.4-10.4); RBC 4.07 XMIL (4.2-5.4); RDW 12.3 % (11.5-14.5); WBC 17.72 X1000 (4.8-10.8)
[2019-10-21 06:12] LABS: INR 0.94; PROTIME 12.7 Seconds (11.0-16.0)
[2019-10-21 06:33] LABS: CALCIUM 9.1 mg/dL (8.8-10.2); CREATININE 1.2 mg/dL (0.5-0.9); POTASSIUM 3.8 mmol/L (3.5-5.1)
--- NOTE | 2019-10-21 07:18 | Diag Imaging Result Doc PS360 ---
EXAM: CHEST-1 VIEW 10/21/2019 HISTORY: SOB TECHNIQUE: AP portable at 0538 COMMENT: There is mild interstitial pulmonary edema with Shante B lines. The heart size is not enlarged. Compared to 10/20/2019 the inspiration is less optimal, otherwise are has been no significant change. IMPRESSION: Mild pulmonary edema. Electronically signed by Tera Hanks 10/21/2019 7:16 AM
[2019-10-21] MEDS: D5 NS 1,000 ML IV SCH ×3 (09:09→20:18)
[2019-10-21] MEDS: M.V.I.-12 10 ML, FOLIC ACID 1 MG, MAGNESIUM SULFATE 1 GM, THIAMINE 100 MG in NS 1,000 ML IV SCH (09:10)
--- NOTE | 2019-10-21 09:14 | PROGRESS NOTE ---
DATE: 10/21/2019 SUBJECTIVE: At this moment, this patient is on a Venturi mask. She is still lethargic. She is still withdrawing with pain, and she is able to open her eyes a little bit when I try to call her name or with pain. Laboratory seems to be a little bit better compared with yesterday regarding sodium and kidney function. White blood cell count increased a little bit, but she is on a high dose of steroids, which I will decrease today. Overall, her prognosis is not good, but we will continue with the same management. OBJECTIVE: Vital Signs: Temperature 97.2 degrees, pulse 101, respiratory rate 22, blood pressure 156/82, oxygen saturation 97% on the BiPAP machine. These vital signs are from 3:17 a.m. LABORATORY DATA: WBC 17.7, hemoglobin 12.7, hematocrit 39.5, platelets 216,000. Sodium 131, potassium 9.6, chloride 26, bicarbonate 35, BUN 1.2, glucose 186, calcium 9.1. ProBNP 6661. ASSESSMENT AND PLAN: 1. Acute on chronic hypoxemic and hypercarbic respiratory failure. It looks like she has been noncompliant with her home oxygen. We have been using the bilevel positive airway pressure machine and the Ventimask on and off. Pulmonary Department is following this patient closely. She is still lethargic. X-ray showed emphysema, pulmonary fibrosis, and probably some pulmonary edema. 2. Severe chronic obstructive pulmonary disease exacerbation. Continue cycling the bilevel positive airway pressure machine and the Ventimask. Continue with steroids, which I will decrease today, bronchodilator and oxygen. 3. Severe hyponatremia. This is getting better. Today, the sodium level is 131. Seems to be chronic, and it is probably related to dehydration at this moment. 4. Kidney dysfunction. I do not have any previous records from this patient. I do not know if this is an acute issue or acute on chronic, but this is getting also better slowly. Her urine output though decreased a little bit. 5. Elevated proBNP. Upon admission, it was around 8885, and now it is 6661. Echocardiogram showed a good ejection fraction, but there is a reduction of the right ventricular systolic function. The study was very difficult and limited due to his acoustic window quality. 6. History of alcohol abuse. Apparently, this patient has been drinking for the past 40 years, at least 6 to 8 beers per night. 7. Possible depression. Apparently, her committed suicide a few weeks ago, but I am not sure about this. 8. Possible sepsis. Aware. Continue with broad spectrum antibiotics. Overall, she is still lethargic. She still has a poor prognosis. Will continue with the same management. cc: Sheldon Fallon MD
[2019-10-21] MEDS ORDERED: LASIX IV ONE (10:23)
[2019-10-21] MEDS: MAXIPIME 0.5 GM in NS 50 ML IV SCH ×2 (11:37→22:30)
[2019-10-21] MEDS: ZYVOX 600 MG/D5W 600 MG/300 ML IVPB IV SCH ×2 (12:09→22:30)
[2019-10-21 14:30] LABS: CALCIUM 9.1 mg/dL (8.8-10.2); CREATININE 1.3 mg/dL (0.5-0.9); POTASSIUM 4.3 mmol/L (3.5-5.1)
--- NOTE | 2019-10-21 21:02 | PROVIDER PROGRESS NOTE ---
Progress Note examined. Full note to follow
--- NOTE | 2019-10-21 21:30 | PROVIDER PROGRESS NOTE ---
Progress Note Progress Note Dr. Denis Progress Note/Pulmonary and or critical care We appreciated progress of care, Complications, change in diagnosis, and instructions to patient. Subjective: We note the level of consciousness, bed (chair) position, family presence (if any), level of lethargy, feeling of symptoms, and changes from baseline condition/symptom. Patient is sleeping. Lethargic. Responds to touch. Objective: Vital Signs: We reviewed EMR current values for Pulse rate, Blood pressure, Pulse rate, respiratory rate and Pulse oximetry. Also noted other values and trends if present (e.g. I/O, CVP). T 97.9 , MT 105 , RR 19 , BP 118/94 and SaO2 98 % Bipap-NC Physical Examination: General: Lying in bed with no acute distress noted. Lethargic/confused. On Bipap/NC. family at bedside. HEENT: Normocephalic. Atraumatic. Trachea midline. . Chest: reduced air entry, symmetrical chest excursion. CVS: Regular rate and rhythm with S1 and S2 appreciated. Abdomen: Soft. Nondistended. Normoactive bowel sounds in all 4 quadrants noted. Extremities: no edema, clubbing or cyanosis. Neuro: Sedated. Management, face to face evaluation by Dr. Denis. HEDY Fisher did scribing only. Labs and Radiology: Reviewed available labs and radiology values available at time of EMR review Laboratory Results 10/21/19 10/21/19 10/21/19 00:34 05:30 05:30 WBC RBC Hgb Hct MCV MCH MCHC RDW Std Deviation Plt Count MPV PT 12.7 INR 0.94 Specimen Type Sample Site pH pCO2 pO2 HCO3 Base Excess Oxyhemoglobin ABG O2 Sat (Calculated) ABG O2 Saturation ABG Carboxyhemoglobin ABG Methemoglobin Maximiliano Test A-a O2 Difference Total Hemoglobin Lactate Blood Gas Modality FiO2 % Inspiratory BiPAP Expiratory BiPAP Sodium 130 L 131 L Potassium 4.4 3.8 Chloride 95 L 96 L Carbon Dioxide 22 L 26 Anion Gap 13 9 BUN 37 H 35 H Creatinine 1.3 H 1.2 H Estimated GFR/1.73 m2 40 44 BUN/Creatinine Ratio 28 29 Glucose 174 H 186 H Calculated Osmolality 274 275 Calcium 9.3 9.1 Tta-[id number]-Akzkrgsdrzp Pept 10/21/19 10/21/19 10/21/19 05:30 05:30 05:31 WBC 17.72 H RBC 4.07 L Hgb 12.7 Hct 39.5 MCV 97.1 MCH 31.2 H MCHC 32.2 L RDW Std Deviation 12.3 Plt Count 216 MPV 9.5 PT INR Specimen Type ARTERIAL Sample Site R RADIAL pH 7.32 L pCO2 51 H* pO2 143 H HCO3 24.6 Base Excess -0.4 Oxyhemoglobin 96.8 ABG O2 Sat (Calculated) 17.0 ABG O2 Saturation 99.8 ABG Carboxyhemoglobin 1.80 ABG Methemoglobin 1.2 Maximiliano Test YES A-a O2 Difference 7.0 Total Hemoglobin 12.3 Lactate 1.10 Blood Gas Modality BI PAP FiO2 % 30.0 Inspiratory BiPAP 20.0 Expiratory BiPAP 6.0 Sodium Potassium Chloride Carbon Dioxide Anion Gap BUN Creatinine Estimated GFR/1.73 m2 BUN/Creatinine Ratio Glucose Calculated Osmolality Calcium [id number] Pept 6661 H 10/21/19 14:03 WBC RBC Hgb Hct MCV MCH MCHC RDW Std Deviation Plt Count MPV PT INR Specimen Type Sample Site pH pCO2 pO2 HCO3 Base Excess Oxyhemoglobin ABG O2 Sat (Calculated) ABG O2 Saturation ABG Carboxyhemoglobin ABG Methemoglobin Maximiliano Test A-a O2 Difference Total Hemoglobin Lactate Blood Gas Modality FiO2 % Inspiratory BiPAP Expiratory BiPAP Sodium 132 L Potassium 4.3 Chloride 97 L Carbon Dioxide 23 L Anion Gap 12 BUN 35 H Creatinine 1.3 H Estimated GFR/1.73 m2 40 BUN/Creatinine Ratio 27 Glucose 158 H Calculated Osmolality 276 Calcium 9.1 Ckt-[id number]-Bavaicgetrm Pept SSESSMENT AND PLAN: 1. Acute on chronic hypoxemic respiratory failure. Continue BiPAP use and supplemental O2. 2. Chronic obstructive pulmonary disease. Continue bronchodilators and steroids. 3. Congestive heart failure, mild. 4. Probable pneumonia. Continue antibiotics as prescribed. 5. Lethargy. Benzo's for DT's Use caution with benzodiazepines and narcotics. We titrated Bipap and supplemental oxygen per patient response and protocol. TIME: I spent 32 minutes with this patient.
[2019-10-21 22:43] LABS: CREATININE 1.4 mg/dL (0.5-0.9); POTASSIUM 4.4 mmol/L (3.5-5.1)
[2019-10-22] MEDS: ATIVAN IV PRN ×4 (00:20→15:28)
[2019-10-22] MEDS: SOLU-MEDROL IV SCH ×3 (04:18→21:56)
[2019-10-22 05:27] LABS: BASO# 0.01 X1000 (0.0-0.2); BASO% 0.1 % (0.0-0.8); HEMATOCRIT 39.9 % (37.0-47.0); HEMOGLOBIN 12.9 g/dL (12.0-16.0); IMM GRAN# 0.12 X1000 (0.0-0.04); IMM GRAN% 0.7 % (0.0-0.5); LYMPH# 0.49 X1000 (1.2-3.4); LYMPH% 2.7 % (20.5-51.1); MCH 31.7 PG (27-31); MCHC 32.3 g/dL (33-37); MONO% 4.4 % (1.7-9.3); MPV 9.4 FL (7.4-10.4); NEUT% 92.1 % (42.2-75.2); PLT 235 X1000 (130-400); RBC 4.07 XMIL (4.2-5.4); RDW 12.7 % (11.5-14.5); WBC 18.32 X1000 (4.8-10.8)
[2019-10-22 05:45] LABS: ALLEN TEST YES; BE -0.7 mmoll (-3.0-3.0); BLOOD TYPE ARTERIAL; HCO3-(ACT) 24.3 mmoll (20.0-26.0); METHB 1.1 % (0.0-1.5); O2(CT) 22.3 mL/dL (15.0-23.0); O2HB 96.6 % (95.0-99.0); PO2(98.6) 103 mmHg (60-100); SAMPLE BLOOD; SAO2 99.6 % (95.0-100.0); THB 16.4 g/dL (11.5-17.4); pH(98.6) 7.31 (7.35-7.45)
[2019-10-22 05:46] LABS: MODALITY BI PAP; PCO2(98.6) 53 mmHg (35-45)
[2019-10-22] MEDS ORDERED: LASIX IV ONE (05:46)
[2019-10-22 05:50] LABS: CALCIUM 9.3 mg/dL (8.8-10.2); CREATININE 1.6 mg/dL (0.5-0.9); POTASSIUM 4.2 mmol/L (3.5-5.1)
[2019-10-22] MEDS: DUONEB (A & A) INH SCH ×6 (06:20→23:25)
--- NOTE | 2019-10-22 07:41 | Diag Imaging Result Doc PS360 ---
EXAM: CHEST-1 VIEW INDICATION: SOB TECHNIQUE: One view COMPARISON: 10/21/2019 FINDINGS: The very mild interstitial edema with a basilar predominance is approximately stable. No new consolidation is identified. Cardiac silhouette is stable. IMPRESSION: Stable chest. Electronically signed by Peyman Cornelius 10/22/2019 7:38 AM
[2019-10-22] MEDS ORDERED: NS 250 ML ONE (08:23)
--- NOTE | 2019-10-22 08:33 | PROGRESS NOTE ---
DATE: 10/22/2019 SUBJECTIVE: This patient is on a Ventimask right now. She is lethargic. She is withdrawing with pain. She is grimacing with pain stimulation as well and making noises. Laboratory seems to be about the same compared with the previous one. Her sodium level is much better at 134. BUN and creatinine are stable. Urine output seems to be improving. Likely this patient has a chronic kidney disease, but I do not have previous records. I will put down an NG tube and start feeding her through the NG tube as well. OBJECTIVE: Vital Signs: Temperature 97.5 degrees, pulse 114, respiratory rate 22, blood pressure 147/80, oxygen saturation 96 on the Venturi mask. HEENT: Head normocephalic, no trauma. PERRLA. Neck: Supple. I cannot see JVD. Central trachea. Chest: Decreased breath sounds globally with bilateral rhonchi mostly at the bases. A prolonged expiratory phase with wheezing. Abdomen: Soft, is not distended. Positive bowel sounds. Extremities: No clubbing, no cyanosis. Multiple bruises. Neurological examination: The patient is lethargic. She is grimacing with pain stimulation and withdrawing with pain as well. LABORATORY: WBC 18.3, hemoglobin 12.9, hematocrit 39.9, platelets 235. Sodium 134, potassium 4.2, chloride 98, bicarbonate 24. BUN 39, creatinine 1.6, glucose 161, calcium 9.3. ASSESSMENT AND PLAN: 1. Acute on chronic hypoxemic and hypercarbic respiratory failure, it looks like she has been noncompliant with her home oxygen. We have been cycling the Ventimask and the BiPAP machine during this hospitalization. Pulmonary Department following this patient closely. She is still lethargic. X-ray shows emphysema, pulmonary fibrosis and some pulmonary edema. Will continue with same management. 2. Global encephalopathy. She came in with severe hyponatremia at 116; this is much better at 134. She was really dehydrated. She is also an alcoholic, so this encephalopathy could be multifactorial. If she does not get better in 1 or 2 days, probably we need to get Neurology Department on board and/or get an MRI. 3. Severe chronic obstructive pulmonary disease exacerbation. Continue cycling the BiPAP machine and the Ventimask. Continue steroids which were decreased yesterday, bronchodilators and oxygen. 4. Severe hyponatremia. This is basically resolved. Sodium level today is 134. 5. Severe dehydration, better. She seems to be euvolemic today. 6. Kidney dysfunction. I do not have any previous records from this patient. She is making a decent amount of urine. I will continue with same management. She is getting a little bit of fluids at this moment, and I will start this patient on feeding tube. 7. Elevated proBNP upon admission was around 8885 and then 6661. Echocardiogram showed a good ejection fraction, but there is a reduction of the right ventricular systolic function. The study was very difficult and limited due to her acoustic window quality. 8. History of alcohol abuse. Apparently, this patient has been drinking for the past 40 years at least 6 to 8 beers per night. 9. Possible depression. Apparently her committed suicide a few weeks ago, but I am not sure about this. Apparently they were planning to together, but again I am not sure about this. 10. Possible sepsis. Aware. Continue with broad spectrum antibiotics. 11. Leukocytosis likely a combination of possible sepsis/infection/steroid use. 12. Nutritional status: I will put a nasogastric tube down today, and I will get the dietitian to start her on a diet. cc: Sheldon Fallon MD
[2019-10-22] MEDS: M.V.I.-12 10 ML, FOLIC ACID 1 MG, MAGNESIUM SULFATE 1 GM, THIAMINE 100 MG in NS 1,000 ML IV SCH (09:03)
[2019-10-22 11:28] LABS: MAGNESIUM 1.9 mg/dL (1.5-2.7); PHOSPHORUS 2.5 mg/dL (2.7-4.5); PREALBUMIN 17.3 mg/dL (20-40)
--- NOTE | 2019-10-22 11:50 | Diag Imaging Result Doc PS360 ---
EXAM: CHEST-PORTABLE INDICATION: NGT placement and PICC placement TECHNIQUE: 2 views COMPARISON: 10/22/2019 FINDINGS: There is a newly placed PICC line. The tip projects over the lower SVC in the expected position. There has also been interval placement of an NG tube. The tip projects below the diaphragm and out of the [id number], assumed to be in the lumen of the stomach. Otherwise, the chest is stable. IMPRESSION: Interval placement of right PICC line and NG tube as described. Stable chest, otherwise. Electronically signed by Peyman Cornelius 10/22/2019 11:48 AM
[2019-10-22] MEDS: MAXIPIME 0.5 GM in NS 50 ML IV SCH (11:58)
[2019-10-22] MEDS: ZYVOX 600 MG/D5W 600 MG/300 ML IVPB IV SCH (11:58)
[2019-10-22 19:06] LABS: CALCIUM 8.5 mg/dL (8.8-10.2); CREATININE 1.4 mg/dL (0.5-0.9); POTASSIUM 3.7 mmol/L (3.5-5.1)
--- NOTE | 2019-10-22 19:13 | PROVIDER PROGRESS NOTE ---
Progress Note Dr. Denis Progress Note/Pulmonary and or critical care We appreciated progress of care, Complications, change in diagnosis, and instructions to patient. Subjective: We note the level of consciousness, bed (chair) position, family presence (if any), level of lethargy, feeling of symptoms, and changes from baseline condition/symptom. The patient is lying in bed on VM 40% with no acute distress noted. NG tube was placed this morning and patient is on NG tube feeding at this time. Her eyes r emain closed during this encounter. She is nonverbal, but grimacing with withdrawing upon painful stimuli. The cumulative I/O since admission is +9170 ml. No family at the bedside. Objective: Vital Signs: We reviewed EMR current values for Pulse rate, Blood pressure, Pulse rate, respiratory rate and Pulse oximetry. Also noted other values and trends if present (e.g. I/O, CVP). T 98.1 (no fever in last 24 hours), OR 107, RR 15, BP 122/62 and SaO2 100% on VM 40%. I/O +1620 ml Physical Examination: General: Eyes closed. Lying in bed with no acute distress noted. HEENT: Normocephalic. Trachea midline. Chest: Even and unlabored. Symmetrical excursion. Auscultation reveals diminished breathing sounds throughout both lung jordan with scattered rhonchi bilaterally. CVS: Regular rate and rhythm with S1 and S2 appreciated. Abdomen: Soft. Nondistended. Normoactive bowel sounds in all 4 quadrants noted. Extremities: No pedal edema. No cyanosis. No clubbing. Bruises on BLE noted. Neuro: Lethargic. Eyes closed. Nonresponsive to verbal stimuli. Grimacing and withdrawing upon painful stimuli. Labs and Radiology: Reviewed available labs and radiology values available at time of EMR review. Laboratory Results 10/21/19 10/22/19 10/22/19 22:19 04:50 05:00 WBC RBC Hgb Hct MCV MCH MCHC RDW Std Deviation Plt Count MPV Immature Gran % (Auto) Neut % (Auto) Lymph % (Auto) [place] % (Auto) Eos % (Auto) Baso % (Auto) Immature Gran # (Auto) Neut # (Auto) Lymph # (Auto) [place] # (Auto) Eos # (Auto) Baso # (Auto) Specimen Type ARTERIAL Sample Site R RADIAL pH 7.31 L pCO2 53 H* pO2 103 H HCO3 24.3 Base Excess -0.7 Oxyhemoglobin 96.6 ABG O2 Sat (Calculated) 22.3 ABG O2 Saturation 99.6 ABG Carboxyhemoglobin 1.90 ABG Methemoglobin 1.1 Maximiliano Test YES A-a O2 Difference 45.0 Total Hemoglobin 16.4 Lactate 1.40 Blood Gas Modality BI PAP FiO2 % 30.0 Inspiratory BiPAP 20.0 Expiratory BiPAP 6.0 Sodium 134 L 134 L Potassium 4.4 4.2 Chloride 99 98 Carbon Dioxide 22 L 24 L Anion Gap 13 12 BUN 38 H 39 H Creatinine 1.4 H 1.6 H Estimated GFR/1.73 m2 37 32 BUN/Creatinine Ratio 27 24 Glucose 143 H 161 H Calculated Osmolality 280 281 Calcium 9.0 9.3 Phosphorus Magnesium Prealbumin 10/22/19 10/22/19 10/22/19 05:00 05:00 17:56 WBC 18.32 H RBC 4.07 L Hgb 12.9 Hct 39.9 MCV 98.0 MCH 31.7 H MCHC 32.3 L RDW Std Deviation 12.7 Plt Count 235 MPV 9.4 Immature Gran % (Auto) 0.7 H Neut % (Auto) 92.1 H Lymph % (Auto) 2.7 L [place] % (Auto) 4.4 Eos % (Auto) 0.0 Baso % (Auto) 0.1 Immature Gran # (Auto) 0.12 H Neut # (Auto) 16.90 H Lymph # (Auto) 0.49 L [place] # (Auto) 0.80 H Eos # (Auto) 0.00 Baso # (Auto) 0.01 Specimen Type Sample Site pH pCO2 pO2 HCO3 Base Excess Oxyhemoglobin ABG O2 Sat (Calculated) ABG O2 Saturation ABG Carboxyhemoglobin ABG Methemoglobin Maximiliano Test A-a O2 Difference Total Hemoglobin Lactate Blood Gas Modality FiO2 % Inspiratory BiPAP Expiratory BiPAP Sodium 136 Potassium 3.7 Chloride 100 Carbon Dioxide 26 Anion Gap 10 BUN 38 H Creatinine 1.4 H Estimated GFR/1.73 m2 37 BUN/Creatinine Ratio 27 Glucose 146 H Calculated Osmolality 284 Calcium 8.5 L Phosphorus 2.5 L Magnesium 1.9 Prealbumin 17.3 L Assessment: Acute on chronic hypoxemic and hypercapnic respiratory failure. Severe COPD exacerbation with emphysema, pulmonary fibrosis and pulmonary edema. Kidney failure with electrolyte abnormality. Improving. ProBNP elevation. Improving. Prognosis is guarded. Plan: Continue current treatment and supportive care per admitting and other teams on the case. Supplemental oxygen titrated per respiratory protocol. BiPAP as needed. Antibiotics (Cefepime and Linezolid), bronchodilators and IV Solu-Medrol. Continue NG tube feeding. Diuresis prn. Appropriate DVT and GI prophylaxis Input was appreciated from Admitting MD and other teams on the case. Evaluation time in minutes: 31 minutes.
[2019-10-22] MEDS: D5 NS 1,000 ML IV SCH (19:17)
[2019-10-23] MEDS: ZYVOX 600 MG/D5W 600 MG/300 ML IVPB IV SCH ×3 (00:03→23:42)
[2019-10-23] MEDS: MAXIPIME 0.5 GM in NS 50 ML IV SCH ×3 (00:03→23:42)
[2019-10-23 00:27] LABS: CALCIUM 8.8 mg/dL (8.8-10.2); CREATININE 1.5 mg/dL (0.5-0.9); POTASSIUM 3.6 mmol/L (3.5-5.1)
[2019-10-23] MEDS: ATIVAN IV PRN ×4 (02:51→17:53)
[2019-10-23] MEDS: DUONEB (A & A) INH SCH ×6 (03:30→23:25)
[2019-10-23] MEDS: SOLU-MEDROL IV SCH ×3 (04:53→20:26)
[2019-10-23 05:18] LABS: BASO# 0.02 X1000 (0.0-0.2); BASO% 0.1 % (0.0-0.8); HEMATOCRIT 38.7 % (37.0-47.0); HEMOGLOBIN 12.3 g/dL (12.0-16.0); IMM GRAN# 0.17 X1000 (0.0-0.04); IMM GRAN% 0.8 % (0.0-0.5); LYMPH% 2.7 % (20.5-51.1); MCH 31.8 PG (27-31); MCHC 31.8 g/dL (33-37); MONO# 0.76 X1000 (0.11-0.59); MONO% 3.4 % (1.7-9.3); MPV 9.2 FL (7.4-10.4); NEUT# 20.55 X1000 (1.4-6.5); PLT 228 X1000 (130-400); RBC 3.87 XMIL (4.2-5.4); RDW 12.8 % (11.5-14.5)
[2019-10-23 05:24] LABS: ALLEN TEST YES; BE 0.5 mmoll (-3.0-3.0); BLOOD TYPE ARTERIAL; HCO3-(ACT) 25.3 mmoll (20.0-26.0); PO2(98.6) 113 mmHg (60-100); SAMPLE BLOOD; pH(98.6) 7.28 (7.35-7.45)
[2019-10-23 05:26] LABS: MODALITY VENTIMASK; PCO2(98.6) 61 mmHg (35-45)
[2019-10-23 05:42] LABS: ALB/GLOB RATIO 1.2; CALCIUM 8.8 mg/dL (8.8-10.2); CREATININE 1.6 mg/dL (0.5-0.9); PHOSPHORUS 2.4 mg/dL (2.7-4.5); POTASSIUM 3.8 mmol/L (3.5-5.1); TOTAL BILIRUBIN 0.27 mg/dL (0.20-1.00); TOTAL PROTEIN 5.5 g/dL (6.3-8.3)
--- NOTE | 2019-10-23 06:53 | Diag Imaging Result Doc PS360 ---
CHEST-1 VIEW - 10/23/2019 INDICATION: SOB COMPARISON: 10/22/2019 FINDINGS: Support lines and tubes are stable. There is cardiomegaly and significant pulmonary vascular congestion. There are some fine interstitial markings in the lung bases suggesting mild pulmonary edema. No pneumothorax or significant pleural effusion. IMPRESSION: No change from prior. Electronically signed by Jerome Rock 10/23/2019 6:50 AM
[2019-10-23 07:21] LABS: LYMPHS 2 % (21-51); MONO 6 % (1-9); SEGS 92 % (42-75)
--- NOTE | 2019-10-23 07:47 | PROGRESS NOTE ---
DATE: 10/23/2019 PRIMARY CARE PHYSICIAN: Diana Andre. FAMILY PHYSICIAN: Beth Lynn. HISTORY OF PRESENT ILLNESS: A 74-year-old, female brought in from the half-way with low O2 saturations. She has a past medical history of COPD, hyponatremia, hypertension, heart disease, hyperkalemia, acute on chronic hypercapnic and hypoxemic respiratory failure, osteoarthritis, weakness, nicotine use. Workup in the emergency room revealed a white count of 16,000, hyponatremia, hypercarbia, metabolic acidosis, congestive heart failure, slightly elevated troponin. She was placed on BiPAP, became agitated, was given 2 mg of Ativan, placed in bilateral restraints, given 40 mg of IV Lasix. The patient initially could not be aroused except for hard sternal rubs. Stepped out of the room and they ordered a stat ABG. Dr. Jones came. Son was at the bedside. The patient was starting to come around. The patient reports that she has alcoholic, drinks 6 to 8 beers a night. She also has had some TIAs in the past. Recent [facility] discharge 2 days before this admission. Continued to have low O2 levels even upon discharge. Had episodes of hyponatremia secondary to not eating and drinking, and was withdrawing from pain but really more on the right side than the left. She had a reducible umbilical hernia. She has remained a Full Code but now she speaks of her brother who is currently out of town, in [place] working. Nephrology and pulmonary are involved. ADMISSION DIAGNOSES: 1. Acute on chronic hypoxemic, hypercapnic respiratory failure with metabolic acidosis. Was put on BiPAP. She has required restraints. We are trying to back down on the Ativan and sedation. Suspect some alcohol withdrawal. 2. Underlying chronic obstructive pulmonary disease exacerbation. 3. Severe hyponatremia, possibly secondary to beer consumption. She really does not eat or drink much. 4. Acute kidney injury. 5. Elevated proBNP and I think evaluating left ventricular function. Apparently, she has had a rough year by report. Her recently committed suicide in front of her and so she has had a lot of depression. PHYSICAL EXAMINATION: Today, temperature 98.7 degrees, pulse 100, respirations 19, blood pressure 137/62. HEENT: Pupils are equal and round. Lungs are clear in all lung jordan. Cardiovascular Examination: Regular rhythm and rate without murmur or S3. Abdomen is soft. Skin is warm and dry. She is in wrist restraints. Urine output was 2400 mL. DIAGNOSTIC DATA: Chest x-ray from today, support lines and tubes are stable. There is cardiomegaly, significant pulmonary venous congestion, some fine interstitial markings in the lung bases suggesting mild pulmonary edema. No pneumothorax or pleural effusion. ASSESSMENT AND PLAN: 1. Acute on chronic hypoxemic and hypercarbic respiratory failure. She looks like she may have been noncompliant to her oxygen at home so I have been cycling the Ventimask and BiPAP machine. She is requiring restraints. Still agitation and confusion. Suspect alcohol withdrawal. 2. Global encephalopathy, severe hyponatremia. Sodium was 116 when she came in. It is much better. It is above 130 now. History of alcoholism and suspect withdrawals. History of underlying situational depression. 3. Severe chronic obstructive pulmonary disease exacerbation. Continue cycling the BiPAP machine with the Ventimask. Continue steroids, bronchodilators, and supplementary oxygen. 4. Severe hyponatremia. The level has come up to above 130. 5. Severe dehydration when she presented. 6. Acute kidney injury. Making good urine. 7. Elevated proBNP on admission. ProBNP was 8885 and second set was 6661. Echocardiogram shows good ejection fraction so reduction of right ventricular systolic function, poor acoustic windows. 8. History of alcohol abuse and suspect alcohol withdrawal, and could be going through delirium tremens. 9. Suspect depression. Recent suicide by her . It has been a hard year for her. 10. Possible sepsis. Continue broad-spectrum antibiotics. 11. Leukocytosis, probably multifactorial. 12. Nutritional status. She has a nasogastric tube. We will try and start some feeding. We will check another set of blood cultures. REVIEW OF ORDERS: She is on albuterol-ipratropium breathing treatments q.2 hours p.r.n. She is getting Apresoline 10 mg IV q.6 hours p.r.n., cefepime 0.5 g IV q.12 hours, methylprednisone 40 mg IV q.8 hours, linezolid 600 mg IV q.12. Looking at her cultures, no growth from her blood cultures on 10/18/2019. cc: Maximiliano Hester MD
[2019-10-23] MEDS: M.V.I.-12 10 ML, FOLIC ACID 1 MG, MAGNESIUM SULFATE 1 GM, THIAMINE 100 MG in NS 1,000 ML IV SCH (08:38)
[2019-10-23] MEDS ORDERED: OFIRMEV 1000 MG/ISOTONIC SOLN 1,000 MG/100 ML BOTTLE IV PRN (11:54)
[2019-10-23] MEDS: D5 NS 1,000 ML IV SCH (11:56)
[2019-10-23] MEDS ORDERED: POTASSIUM PHOSPHATE 40 MMOL in NS 250 ML IV ONE (12:30)
[2019-10-23] MEDS: HALDOL IV PRN (15:40)
--- NOTE | 2019-10-23 17:03 | PROVIDER PROGRESS NOTE ---
Progress Note Dr. Denis Progress Note/Pulmonary and or critical care Subjective: The patient is lying in bed on a BiPAP mask with no acute distress noted. She is awake with eyes open, but unresponsive to verbal stimuli. She does not answer any questions or follow any simple commands. She apparently had a bowel movement at an earlier time and staff at the bedside is cleaning her. She had an episode of agitation with yelling and tachypnea this morning. IV Ativan 1 mg was given and worked. No family at the bedside. Input is appreciated from Dr. Hester and other teams on the case. Objective: Vital Signs: T 99.6 (the highest temperature in last 24 hours), MA 121, RR 20, BP 158/93 and SaO2 96% on BiPAP 30% 20/6. I/O: +1675ml Physical Examination: General: Lying in bed with no acute distress noted. HEENT: Normocephalic. Trachea midline. NG tube in place. Chest: Even and unlabored. Symmetrical excursion. Auscultation reveals diminished breathing sounds throughout both lung jordan. CVS: Regular rate and rhythm with S1 and S2 appreciated. Abdomen: Soft. Nondistended. Normoactive bowel sounds in all 4 quadrants noted. Extremities: No pedal edema. No cyanosis. No clubbing. Bruises on BLE noted. Neuro: Awake. Unresponsive to verbal stimuli. Grimacing and withdrawing upon painful stimuli. Not answer questions or follow commands. Labs and Radiology: Laboratory Results 10/22/19 10/22/19 10/23/19 17:56 23:50 04:50 WBC RBC Hgb Hct MCV MCH MCHC RDW Std Deviation Plt Count MPV Immature Gran % (Auto) Neut % (Auto) Lymph % (Auto) [place] % (Auto) Eos % (Auto) Baso % (Auto) Immature Gran # (Auto) Neut # (Auto) Lymph # (Auto) [place] # (Auto) Eos # (Auto) Baso # (Auto) Segmented Neutrophils Lymphocytes Monocytes Specimen Type Sample Site pH pCO2 pO2 HCO3 Base Excess Maximiliano Test A-a O2 Difference Lactate Liter Flow Blood Gas Modality FiO2 % Sodium 136 137 139 Potassium 3.7 3.6 3.8 Chloride 100 99 101 Carbon Dioxide 26 28 28 Anion Gap 10 10 10 BUN 38 H 42 H 40 H Creatinine 1.4 H 1.5 H 1.6 H Estimated GFR/1.73 m2 37 34 32 BUN/Creatinine Ratio 27 28 25 Glucose 146 H 163 H 163 H Calculated Osmolality 284 288 291 Calcium 8.5 L 8.8 8.8 Phosphorus 2.4 L Magnesium 2.0 Total Bilirubin 0.27 AST 20 ALT 23 Alkaline Phosphatase 58 Total Protein 5.5 L Albumin 3.0 L Globulin 2.5 Albumin/Globulin Ratio 1.2 10/23/19 10/23/19 04:50 05:13 WBC 22.10 H RBC 3.87 L Hgb 12.3 Hct 38.7 MCV 100.0 H MCH 31.8 H MCHC 31.8 L RDW Std Deviation 12.8 Plt Count 228 MPV 9.2 Immature Gran % (Auto) 0.8 H Neut % (Auto) 93.0 H Lymph % (Auto) 2.7 L [place] % (Auto) 3.4 Eos % (Auto) 0.0 Baso % (Auto) 0.1 Immature Gran # (Auto) 0.17 H Neut # (Auto) 20.55 H Lymph # (Auto) 0.60 L [place] # (Auto) 0.76 H Eos # (Auto) 0.00 Baso # (Auto) 0.02 Segmented Neutrophils 92 H Lymphocytes 2 L Monocytes 6 Specimen Type ARTERIAL Sample Site R RADIAL pH 7.28 L pCO2 61 H* pO2 113 H HCO3 25.3 Base Excess 0.5 Maximiliano Test YES A-a O2 Difference 167.0 Lactate 1.10 Liter Flow 15.0 Blood Gas Modality VENTIMASK FiO2 % 50.0 Sodium Potassium Chloride Carbon Dioxide Anion Gap BUN Creatinine Estimated GFR/1.73 m2 BUN/Creatinine Ratio Glucose Calculated Osmolality Calcium Phosphorus Magnesium Total Bilirubin AST ALT Alkaline Phosphatase Total Protein Albumin Globulin Albumin/Globulin Ratio Assessment: Acute on chronic hypoxemic and hypercapnic respiratory failure. Severe COPD exacerbation with emphysema, pulmonary fibrosis and mild bibasilar pulmonary edema. Kidney failure. Global encephalopathy. ProBNP elevation. Echocardiogram on 10/18/19 showed moderately enlarged right atrium right ventricle with mildly reduced right ventricular systolic function. Prognosis is guarded. Plan: Continue current treatment and supportive care per admitting and other teams on the case. Supplemental oxygen titrated per respiratory protocol. BiPAP as needed. Antibiotics (Cefepime and Linezolid), bronchodilators and IV Solu-Medrol. Continue NG tube feeding. Diuresis prn. Appropriate DVT and GI prophylaxis Avoid benzo. Start Haldol 5mg Q6H prn for anxiety/agitation. Evaluation time in minutes: 35 minutes.
[2019-10-24] MEDS: ATIVAN IV PRN ×3 (00:23→23:41)
[2019-10-24] MEDS: LOPRESSOR IV SCH ×2 (01:05→13:16)
[2019-10-24] MEDS: DUONEB (A & A) INH SCH ×6 (02:57→23:34)
[2019-10-24] MEDS: SOLU-MEDROL IV SCH ×2 (04:21→12:24)
[2019-10-24 05:19] LABS: ALLEN TEST YES; BE 1.8 mmoll (-3.0-3.0); BLOOD TYPE ARTERIAL; HCO3-(ACT) 26.3 mmoll (20.0-26.0); METHB 1.8 % (0.0-1.5); O2(CT) 17.6 mL/dL (15.0-23.0); O2HB 95.8 % (95.0-99.0); PO2(98.6) 106 mmHg (60-100); SAMPLE BLOOD; pH(98.6) 7.34 (7.35-7.45)
[2019-10-24 05:22] LABS: MODALITY VENTIMASK; PCO2(98.6) 53 mmHg (35-45)
--- NOTE | 2019-10-24 07:18 | Diag Imaging Result Doc PS360 ---
EXAM: CHEST-1 VIEW 10/24/2019 HISTORY: SOB TECHNIQUE: AP portable at 0540 COMMENT: There is an NG tube with its tip below the diaphragm. There is a PICC line on the right with its tip in the superior vena cava. There is cardiomegaly. There is increased interstitial markings which have not changed since 10/23/2019 or 10/22/2019. IMPRESSION: Mild cardiomegaly. Interstitial pulmonary edema versus fibrosis. Electronically signed by Tera Hanks 10/24/2019 7:16 AM
[2019-10-24] MEDS: M.V.I.-12 10 ML, FOLIC ACID 1 MG, MAGNESIUM SULFATE 1 GM, THIAMINE 100 MG in NS 1,000 ML IV SCH (08:22)
[2019-10-24] MEDS: D5 NS 1,000 ML IV SCH (08:22)
--- NOTE | 2019-10-24 08:50 | EKG Report ---
Test Performed on : 10/24/2019 00:52:03 AM Test Reason : ICU. NO EKG ORDER FOR MUSE Blood Pressure : / mmHG Vent. Rate : 120 BPM Atrial Rate : 120 BPM P-R Int : 144 ms QRS Dur : 072 ms QT Int : 296 ms P-R-T Axes : 082 053 093 degrees QTc Int : 418 ms Sinus tachycardia. with frequent premature ventricular complexes. Otherwise normal ECG When compared with ECG of 18-OCT-2019 06:51, (Unconfirmed) premature ventricular complexes. are now present premature supraventricular complexes. are no longer present ST no longer depressed in Lateral leads T wave amplitude has decreased in Anterior leads Confirmed by Elisabet Polanco MD ([id number]) on 10/26/2019 12:15:23 PM
[2019-10-24] MEDS: ZYVOX 600 MG/D5W 600 MG/300 ML IVPB IV SCH ×2 (10:27→22:27)
[2019-10-24] MEDS: MAXIPIME 0.5 GM in NS 50 ML IV SCH ×2 (10:27→22:22)
[2019-10-24 11:19] LABS: HEMATOCRIT 34.9 % (37.0-47.0); HEMOGLOBIN 10.7 g/dL (12.0-16.0); MCH 31.8 PG (27-31); MCHC 30.7 g/dL (33-37); MCV 103.6 FL (81-99); MPV 9.4 FL (7.4-10.4); RBC 3.37 XMIL (4.2-5.4); RDW 13.3 % (11.5-14.5); WBC 22.04 X1000 (4.8-10.8)
[2019-10-24 13:04] LABS: AGAP 7; ALB/GLOB RATIO 1.5; ALKALINE PHOSPHATASE 57 U/L (32-104); BUN 36 mg/dL (8-22); CALCIUM 8.2 mg/dL (8.8-10.2); CHLORIDE 102 mmol/L (98-107); COSMO 288; CREATININE 1.2 mg/dL (0.5-0.9); GLUCOSE 207 mg/dL (70-104); GOT 16 U/L (10-30); GPT 23 U/L (10-36); MAGNESIUM 1.9 mg/dL (1.5-2.7); POTASSIUM 4.1 mmol/L (3.5-5.1); SODIUM 137 mmol/L (136-145); TCO2 28 mmol/L (25-35); TOTAL BILIRUBIN 0.23 mg/dL (0.20-1.00)
--- NOTE | 2019-10-24 13:54 | PROGRESS NOTE ---
DATE: 10/24/2019 SUBJECTIVE: Ms. Talavera is more awake and more alert. She is no longer in restraints. Blood pressure did dip down a short time; we gave her a little bit of fluids, and her blood pressure is 137/80 at this time. OBJECTIVE: She remains afebrile with temperature 99.2 degrees, pulse 99, respirations 18, blood pressure 131/50.Eyes: Pupils are equal and round. Lungs: Clear in all lung jordan. Cardiovascular exam: Regular rhythm and rate without murmur or S3. : Urine output was 2400 mL. IMAGING: Chest x-ray showed mild cardiomegaly, interstitial pulmonary edema versus fibrosis. ASSESSMENT AND PLAN: 1. Acute on chronic hypoxemic hypercapnic respiratory failure. 2. Severe chronic obstructive pulmonary disease exacerbation with emphysema, pulmonary fibrosis, mild bibasilar pulmonary edema. 3. Acute kidney injury on top of chronic kidney disease. This is improving. 4. Global encephalopathy, multifactorial. One possibility is alcohol withdrawal. 5. Elevation in proBNP. Echocardiogram 10/18/2019 showed moderately enlarged right atrium, right ventricle with mildly reduced right ventricular systolic function. She seems to be showing some steady improvement. REVIEW OF HER ORDERS: I do not see any changes. I did go up on her Ativan as she is having more confusion. I suspect alcohol withdrawal. She is on cefepime 500 mg IV every 12 hours. She is on methylprednisone 40 mg IV q. 8 hours, linezolid 600 mg IV q. 12 hours. LABS: From today, white count still elevated at 22,040, hematocrit 34, MCV of 103, platelet count 160,000. Sodium 137, potassium 4.1, chloride 102. BUN 36, creatinine 1.2, so creatinine has come down nicely. Transaminase is normal. cc: Maximiliano Hester MD
[2019-10-24] MEDS ORDERED: LOVENOX SUBQ SCH (17:00)
--- NOTE | 2019-10-24 17:16 | PROVIDER PROGRESS NOTE ---
Progress Note Dr. Denis Progress Note/Pulmonary and or critical care Subjective: The patient is lying in bed on VM 50% with SaO2 on high 90s. There is no acute distress noted. Her eyes are closed and extremity moves at times. She is unresponsive to verbal stimuli, but grimaces with withdrawal upon tactile stimuli. She does not follow any commands. NG tube feeding is on. She apparently stay positive I/O in last 5 days with cumulative I/O +[id number] at this time. No family at the bedside. Input is appreciated from Dr. Hester and other teams on the case. Objective: Vital Signs: T 99.2 (the highest temperature in last 24 hours), [place] 99, RR 18, BP 131/50 and SaO2 100% on VM 50%. I/O: +2508 ml Physical Examination: General: Lying in bed with no acute distress noted. HEENT: Normocephalic. Trachea midline. NG tube in place. Chest: Even and unlabored. Symmetrical excursion. Auscultation reveals diminished breathing sounds throughout both lung jordan. CVS: Regular rate and rhythm with S1 and S2 appreciated. Abdomen: Soft. Nondistended. Normoactive bowel sounds in all 4 quadrants noted. Extremities: BLE and BUE 1+. No cyanosis. No clubbing. Bruises on BLE noted. Neuro: Eyes closed. Unresponsive to verbal stimuli. Grimacing and withdrawing upon tactile stimuli. Not answer questions or follow commands. Labs and Radiology: Laboratory Results 10/24/19 10/24/19 10/24/19 05:08 10:55 10:55 WBC 22.04 H RBC 3.37 L Hgb 10.7 L Hct 34.9 L MCV 103.6 H MCH 31.8 H MCHC 30.7 L RDW Std Deviation 13.3 Plt Count 160 MPV 9.4 Specimen Type ARTERIAL Sample Site R RADIAL pH 7.34 L pCO2 53 H* pO2 106 H HCO3 26.3 H Base Excess 1.8 Oxyhemoglobin 95.8 ABG O2 Sat (Calculated) 17.6 ABG O2 Saturation 99.0 ABG Carboxyhemoglobin 1.40 ABG Methemoglobin 1.8 H Maximiliano Test YES A-a O2 Difference 113.0 Total Hemoglobin 13.0 Lactate 0.90 Liter Flow 15.0 Blood Gas Modality VENTIMASK FiO2 % 40.0 Sodium 137 Potassium 4.1 Chloride 102 Carbon Dioxide 28 Anion Gap 7 BUN 36 H Creatinine 1.2 H BUN/Creatinine Ratio 30 Glucose 207 H Calculated Osmolality 288 Calcium 8.2 L Magnesium 1.9 Total Bilirubin 0.23 AST 16 ALT 23 Alkaline Phosphatase 57 Total Protein 5.0 L Albumin 3.0 L Globulin 2.0 Albumin/Globulin Ratio 1.5 Assessment: Acute on chronic hypoxemic and hypercapnic respiratory failure. Severe COPD exacerbation with emphysema, pulmonary fibrosis and mild bibasilar pulmonary edema. CXR this morning shows mild cardiomegaly and interstitial pulmonary edema vs. fibrosis. Kidney failure. Improving. Global encephalopathy. ProBNP elevation. Echocardiogram on 10/18/19 showed moderately enlarged right atrium right ventricle with mildly reduced right ventricular systolic function. Prognosis is guarded. Plan: Continue current treatment and supportive care per admitting and other teams on the case. Supplemental oxygen titrated per respiratory protocol. BiPAP as needed. Antibiotics (Cefepime and Linezolid), bronchodilators and IV Solu-Medrol (tapering down). Continue NG tube feeding. Diuresis prn. Appropriate DVT and GI prophylaxis Evaluation time in minutes: 33 minutes.
[2019-10-24] MEDS: HALDOL IV PRN (22:22)
[2019-10-25] MEDS: LOPRESSOR IV SCH ×2 (00:52→14:00)
[2019-10-25] MEDS: SOLU-MEDROL IV SCH ×2 (00:53→14:00)
[2019-10-25] MEDS: DUONEB (A & A) INH SCH ×6 (03:28→23:44)
[2019-10-25] MEDS: ATIVAN IV PRN ×2 (03:45→07:46)
[2019-10-25] MEDS: D5 NS 1,000 ML IV SCH ×2 (03:46→23:17)
[2019-10-25 05:30] LABS: ALLEN TEST YES; BE 3.6 mmoll (-3.0-3.0); BLOOD TYPE ARTERIAL; HCO3-(ACT) 27.8 mmoll (20.0-26.0); METHB 0.3 % (0.0-1.5); O2(CT) 10.7 mL/dL (15.0-23.0); O2HB 96.3 % (95.0-99.0); PO2(98.6) 70 mmHg (60-100); SAMPLE BLOOD; SRATE 4 BPM; THB 7.8 g/dL (11.5-17.4); pH(98.6) 7.32 (7.35-7.45)
[2019-10-25 05:35] LABS: MODALITY BI PAP; PCO2(98.6) 59 mmHg (35-45)
--- NOTE | 2019-10-25 06:30 | Diag Imaging Result Doc PS360 ---
CHEST-1 VIEW - 10/25/2019 INDICATION: SOB COMPARISON: 10/24/2019 FINDINGS: Stable nasogastric tube. Stable right PICC line in good position. Stable cardiomegaly. Stable hazy interstitial infiltrates/opacities in both lung bases. These are indeterminate. Lungs remain somewhat hyperexpanded suggesting COPD. IMPRESSION: No change from prior. Electronically signed by Jerome Rock 10/25/2019 6:28 AM
[2019-10-25] MEDS: M.V.I.-12 10 ML, FOLIC ACID 1 MG, MAGNESIUM SULFATE 1 GM, THIAMINE 100 MG in NS 1,000 ML IV SCH (08:05)
[2019-10-25] MEDS: ZYVOX 600 MG/D5W 600 MG/300 ML IVPB IV SCH ×2 (11:54→23:17)
[2019-10-25] MEDS: MAXIPIME 0.5 GM in NS 50 ML IV SCH ×2 (11:54→23:17)
--- NOTE | 2019-10-25 13:28 | PROGRESS NOTE ---
DATE: 10/25/2019 SUBJECTIVE: The patient has really not been very responsive. Continue to give her Ativan. We still feel like this is probably substance withdrawal, mainly alcohol withdrawal. On her right PICC line, there is an axillary thrombus there so I think we are going to have to stop the right PICC line and see if we can put in the left arm or consider a peripheral line. I tried her on some Lovenox high dose yesterday, but she had seen hematuria, and so I feel like we are going to have to get the line out. OBJECTIVE: She remains afebrile, temperature 98 degrees, pulse 100, respirations 18, and blood pressure 135/63. Pupils are equal and round. Lungs are clear in all lung jordan. Cardiovascular regular rhythm and rate without murmur or S3. Abdomen is soft. Skin is warm and dry. Urine output is 2600 mL. Chest x-ray stable nasogastric tube. Stable PICC line in good position. Stable cardiomegaly. Stable hazy interstitial infiltrates opacities in both lung bases, but there is some hyperexpansion suggesting COPD. ASSESSMENT AND PLAN: 1. Acute on chronic hypoxemic and hypercapnic respiratory failure. 2. Severe COPD exacerbation with emphysema, pulmonary fibrosis, and mild bibasilar pulmonary edema. Chest x-ray suggested cardiomegaly and interstitial pulmonary edema versus fibrosis. 3. Kidney failure. Acute kidney injury which seems to be improving. Her creatinine is 1.2. It has come down from 1.6. 4. Global encephalopathy. With her history, I suspect alcohol withdrawal and probably benzodiazepine withdrawal. 5. ProBNP elevation. Echocardiogram on 10/18/2019 showed moderately enlarged right atrium, right ventricle, and mildly reduced right ventricular systolic function. 6. Lastly, a thrombus in the right axillary vein. We will need to stop the right PICC line and see if we can place one in the left. REVIEW OF ORDERS: 1. Cefepime 500 mg IV q.12. 2. Methylprednisone 40 mg IV every 12 hours. 3. Lopressor 2.5 mg IV q.12h. 4. Linezolid 600 mg IV q.12. 5. She is getting Ativan as needed for agitation or sign of alcohol withdrawal. 6. I think we have stopped the Ativan because of watching it for holding it for blood pressure to see if we can allow her to wake up some. cc: Maximiliano Hester MD
[2019-10-25 13:37] LABS: BASO# 0.01 X1000 (0.0-0.2); EOS# 0.01 X1000 (0.0-0.7); HEMATOCRIT 38.9 % (37.0-47.0); HEMOGLOBIN 11.6 g/dL (12.0-16.0); IMM GRAN# 0.18 X1000 (0.0-0.04); IMM GRAN% 0.8 % (0.0-0.5); LYMPH# 0.52 X1000 (1.2-3.4); LYMPH% 2.2 % (20.5-51.1); MCH 31.3 PG (27-31); MCHC 29.8 g/dL (33-37); MCV 104.9 FL (81-99); MONO# 0.86 X1000 (0.11-0.59); MONO% 3.6 % (1.7-9.3); MPV 9.3 FL (7.4-10.4); NEUT# 22.33 X1000 (1.4-6.5); NEUT% 93.4 % (42.2-75.2); PLT 159 X1000 (130-400); RBC 3.71 XMIL (4.2-5.4); RDW 13.4 % (11.5-14.5); WBC 23.91 X1000 (4.8-10.8)
[2019-10-25 13:45] LABS: INR 1.02; PROTIME 13.5 Seconds (11.0-16.0)
[2019-10-25 13:45] LABS: LYMPHS 4 % (21-51); MONO 5 % (1-9); SEGS 91 % (42-75)
[2019-10-25 14:34] LABS: ALB/GLOB RATIO 1.1; ALBUMIN 2.7 g/dL (3.5-5.0); CALCIUM 8.4 mg/dL (8.8-10.2); CREATININE 1.2 mg/dL (0.5-0.9); MAGNESIUM 2.3 mg/dL (1.5-2.7); POTASSIUM 4.5 mmol/L (3.5-5.1); TOTAL BILIRUBIN 0.2 mg/dL (0.20-1.00); TOTAL PROTEIN 5.1 g/dL (6.3-8.3)
[2019-10-25] MEDS ORDERED: NS 250 ML ONE (15:17)
--- NOTE | 2019-10-25 16:20 | PROVIDER PROGRESS NOTE ---
Progress Note Dr. Denis Progress Note/Pulmonary and or critical care Subjective: The patient is lying in bed on VM 50%. There is no acute distress noted. She appears more lethargic today. NG tube feeding is on. She apparently stays positive I/O in last 6 days with cumulative I/O +[id number] at this time. No family at the bedside. Input is appreciated from Dr. Hester and other teams on the case. Objective: Vital Signs: T 98.2 (no fever in last 24 hours), WY 97, RR 15, BP 158/98 and SaO2 94% on VM 50%. I/O: +2480 ml Physical Examination: General: Lying in bed with no acute distress noted. HEENT: Normocephalic. Trachea midline. NG tube in place. Chest: Even and unlabored. Symmetrical excursion. Auscultation reveals diminished breathing sounds throughout both lung jordan. CVS: Regular rate and rhythm with S1 and S2 appreciated. Abdomen: Soft. Nondistended. Normoactive bowel sounds in all 4 quadrants noted. Extremities: BLE and BUE 1+. No cyanosis. No clubbing. Bruises on BLE noted. Neuro: Lethargic. Unresponsive to verbal stimuli. Grimacing and withdrawing upon tactile stimuli. Not answer questions or follow commands. Labs and Radiology: Intake & Output 10/23/19 10/24/19 10/25/19 10/26/19 07:59 07:59 07:59 07:59 Intake Total 3140 / 3140 3908 / 3908 4030 / 4030 2090 / 2090 Output Total 1465 / 1465 1400 / 1400 1550 / 1550 350 / 350 Balance 1675 / 1675 2508 / 2508 2480 / 2480 1740 / 1740 Laboratory Results 10/25/19 10/25/19 10/25/19 04:45 12:48 13:12 WBC RBC Hgb Hct MCV MCH MCHC RDW Std Deviation Plt Count MPV Immature Gran % (Auto) Neut % (Auto) Lymph % (Auto) [place] % (Auto) Eos % (Auto) Baso % (Auto) Immature Gran # (Auto) Neut # (Auto) Lymph # (Auto) [place] # (Auto) Eos # (Auto) Baso # (Auto) Segmented Neutrophils Lymphocytes Monocytes PT 13.5 INR 1.02 Specimen Type ARTERIAL Sample Site R RADIAL pH 7.32 L pCO2 59 H* pO2 70 HCO3 27.8 H Base Excess 3.6 H Oxyhemoglobin 96.3 ABG O2 Sat (Calculated) 10.7 L ABG O2 Saturation 99.0 ABG Carboxyhemoglobin 2.40 ABG Methemoglobin 0.3 Maximiliano Test YES A-a O2 Difference 70.0 Total Hemoglobin 7.8 L Lactate 1.10 Blood Gas Modality BI PAP Vent Mode BIPAP Spontaneous Rate 4 FiO2 % 30.0 Inspiratory BiPAP 20.0 Expiratory BiPAP 6.0 Sodium 146 H Potassium 4.5 Chloride 110 H Carbon Dioxide 30 Anion Gap 6 BUN 37 H Creatinine 1.2 H Estimated GFR/1.73 m2 44 BUN/Creatinine Ratio 31 Glucose 179 H Calculated Osmolality 304 Calcium 8.4 L Magnesium 2.3 Total Bilirubin 0.20 AST 18 ALT 23 Alkaline Phosphatase 55 Total Protein 5.1 L Albumin 2.7 L Globulin 2.4 Albumin/Globulin Ratio 1.1 10/25/19 13:12 WBC 23.91 H RBC 3.71 L Hgb 11.6 L Hct 38.9 MCV 104.9 H MCH 31.3 H MCHC 29.8 L RDW Std Deviation 13.4 Plt Count 159 MPV 9.3 Immature Gran % (Auto) 0.8 H Neut % (Auto) 93.4 H Lymph % (Auto) 2.2 L [place] % (Auto) 3.6 Eos % (Auto) 0.0 Baso % (Auto) 0.0 Immature Gran # (Auto) 0.18 H Neut # (Auto) 22.33 H Lymph # (Auto) 0.52 L [place] # (Auto) 0.86 H Eos # (Auto) 0.01 Baso # (Auto) 0.01 Segmented Neutrophils 91 H Lymphocytes 4 L Monocytes 5 PT INR Specimen Type Sample Site pH pCO2 pO2 HCO3 Base Excess Oxyhemoglobin ABG O2 Sat (Calculated) ABG O2 Saturation ABG Carboxyhemoglobin ABG Methemoglobin Maximiliano Test A-a O2 Difference Total Hemoglobin Lactate Blood Gas Modality Vent Mode Spontaneous Rate FiO2 % Inspiratory BiPAP Expiratory BiPAP Sodium Potassium Chloride Carbon Dioxide Anion Gap BUN Creatinine Estimated GFR/1.73 m2 BUN/Creatinine Ratio Glucose Calculated Osmolality Calcium Magnesium Total Bilirubin AST ALT Alkaline Phosphatase Total Protein Albumin Globulin Albumin/Globulin Ratio Assessment: Acute on chronic hypoxemic and hypercapnic respiratory failure. Severe COPD exacerbation with emphysema, pulmonary fibrosis and mild bibasilar pulmonary edema. CXR today shows stable cardiomegaly, stable hazy interstitial infiltrates/opacities in both lung bases, and hyperexpansion suggesting COPD. Kidney failure. Improving. Global encephalopathy. ProBNP elevation. Echocardiogram on 10/18/19 showed moderately enlarged right atrium right ventricle with mildly reduced right ventricular systolic function. Prognosis is guarded. Plan: Continue current treatment and supportive care per admitting and other teams on the case. Supplemental oxygen titrated per respiratory protocol. BiPAP as needed. Antibiotics (Cefepime and Linezolid), bronchodilators and IV Solu-Medrol (tapering down). Continue NG tube feeding. Diuresis prn. Appropriate DVT and GI prophylaxis Evaluation time in minutes: 32 minutes.
[2019-10-25] MEDS: LOVENOX SUBQ SCH (17:36)
[2019-10-25] MEDS: APRESOLINE IV PRN ×2 (18:29→23:39)
[2019-10-26] MEDS: LOPRESSOR IV SCH (00:29)
[2019-10-26] MEDS: SOLU-MEDROL IV SCH ×2 (00:37→14:00)
[2019-10-26] MEDS: HALDOL IV PRN ×4 (02:58→22:45)
[2019-10-26] MEDS: DUONEB (A & A) INH SCH ×6 (03:20→23:10)
[2019-10-26 05:41] LABS: ALLEN TEST YES; BE 3.1 mmoll (-3.0-3.0); BLOOD TYPE ARTERIAL; HCO3-(ACT) 27.3 mmoll (20.0-26.0); METHB 0.9 % (0.0-1.5); O2(CT) 14.8 mL/dL (15.0-23.0); O2HB 95.9 % (95.0-99.0); PO2(98.6) 80 mmHg (60-100); SAMPLE BLOOD; SAO2 98.9 % (95.0-100.0); THB 10.9 g/dL (11.5-17.4); pH(98.6) 7.36 (7.35-7.45)
[2019-10-26 05:46] LABS: PCO2(98.6) 52 mmHg (35-45)
[2019-10-26 05:47] LABS: MODALITY BI PAP
--- NOTE | 2019-10-26 08:01 | Diag Imaging Result Doc PS360 ---
EXAM: CHEST-1 VIEW HISTORY: SOB TECHNIQUE: Single view COMPARISON: 10/25/2019 FINDINGS: There is now a left-sided PICC line. Tip overlies the right atrium. The lungs are well expanded. The heart is borderline mildly prominent. Mild increased interstitial markings similar to the prior study. No consolidation. No pleural effusions identified. No change in the nasogastric tube. IMPRESSION: New left PICC line, but otherwise stable chest. Electronically signed by Casey Bustos 10/26/2019 7:58 AM
[2019-10-26] MEDS: M.V.I.-12 10 ML, FOLIC ACID 1 MG, MAGNESIUM SULFATE 1 GM, THIAMINE 100 MG in NS 1,000 ML IV SCH (08:40)
[2019-10-26] MEDS: APRESOLINE IV PRN ×2 (08:41→14:46)
--- NOTE | 2019-10-26 10:06 | PROGRESS NOTE ---
DATE: 10/26/2019 SUBJECTIVE: She is more awake and responsive, breathing comfortably. They have stopped the Ativan and using Haldol. OBJECTIVE: Her temp is 97.9 degrees, pulse 97, respirations 24, blood pressure 146/67. Pupils are equal and round. Lungs are clear in all lung jordan. Cardiovascular exam with regular rate without murmur or S3. Abdomen is soft. Skin is warm and dry. DATA: Urine output is 2200 mL. Chest x-ray with new left PICC line in good position. Stopped right PICC line. ASSESSMENT AND PLAN: 1. Acute on chronic hypoxemic and hypercapnic respiratory failure, severe chronic obstructive pulmonary disease exacerbation with emphysema, pulmonary fibrosis, mild bibasilar pulmonary edema. Chest x-ray showed stable cardiomegaly, stable hazy interstitial infiltrates, opacities in both lung bases and hyperexpansion suggesting COPD. 2. Acute kidney injury, improving. 3. Global encephalopathy and I suspect alcohol withdrawals. 4. ProBNP elevation. Echocardiogram on 10/18/2019 showed moderately enlarged right atrium, right ventricle, mildly reduced right ventricle systolic function. 5. Prognosis is guarded, but she appears to be clinically making some improvement. On review of orders, I do not see any change, using Haldol 5 mg IV q.6 hours p.r.n. for agitation and delirium. She is on Maxipime 500 mg IV q.12, methylprednisone 40 mg IV q.12, linezolid 600 mg IV q.12. cc: Maximiliano Hester MD
[2019-10-26] MEDS: LOPRESSOR IV PRN (10:41)
[2019-10-26] MEDS: ZYVOX 600 MG/D5W 600 MG/300 ML IVPB IV SCH ×2 (10:42→23:51)
[2019-10-26] MEDS: MAXIPIME 0.5 GM in NS 50 ML IV SCH ×2 (10:42→22:45)
--- NOTE | 2019-10-26 16:48 | PULMONOLOGY PROGRESS NOTE ---
DATE: 10/26/2019 SUBJECTIVE: The patient is awake. She does not follow commands. She appears to intermittently track the examiner. She appears weak. She has some audible rhonchi. OBJECTIVE: Vital Signs: The patient has been afebrile for the last 24 hours. Blood pressure 149/67, heart rate 95, respiratory rate 24, oxygen saturation 50% on Venturi mask. HEENT: Pupils are equal. Oropharynx appears dry. Neck: Supple. Cardiac: Regular rate. Normal S1, normal S2. Chest: Rhonchi bilaterally. Abdomen: Soft. Extremities: Peripheral edema 1+. She has some weeping from the right arm. Skin condition overall appears poor. LABORATORY AND DIAGNOSTIC DATA: White blood count 23,900, hemoglobin 11.6, platelet count 159,000. Microbiology reveals no new data. Arterial blood gas reveals pH of 7.36, pCO2 of 52, PO2 of 80. No electrolytes today. Chest x-ray reveals borderline heart size with mild increased interstitial markings. No change. IMPRESSION: A 74-year-old with: 1. Chronic obstructive pulmonary disease. 2. Acute on chronic hypoxemic respiratory failure. 3. Hypercapnic respiratory failure. 4. Encephalopathy. PLAN: 1. Continue ICU monitoring pending improvement in mental status. 2. Continue bronchial hygiene. 3. Continue antibiotics. 4. Continue tube feedings. cc: Martin Yo MD
[2019-10-26] MEDS ORDERED: CALMOSEPTINE OINTMENT TOP PRN (17:04)
[2019-10-26] MEDS: LOVENOX SUBQ SCH (17:31)
--- NOTE | 2019-10-26 19:11 | Extremity Venous Study ---
PROCEDURE NAME: Venous U/S Right Arm - 10/24/2019 The patient has some edema in the right arm. A right brachial PICC line is present. The subclavian, axillary, brachial, basilic, and cephalic veins are imaged in the right upper extremity. There is minimal thrombus in the right axillary vein. It is not occlusive and seems to be between the catheter and the sidewall. No other clot is seen. INTERPRETATION: Nonoccluding thrombus in the small portion of the axillary vein. Flow persists. cc: MD Maximiliano Pelletier MD
[2019-10-26] MEDS: D5 NS 1,000 ML IV SCH (20:28)
[2019-10-27] MEDS: SOLU-MEDROL IV SCH ×2 (00:28→13:32)
[2019-10-27] MEDS: LOPRESSOR IV PRN ×2 (02:07→07:54)
[2019-10-27] MEDS: DUONEB (A & A) INH SCH ×6 (03:20→23:37)
[2019-10-27 04:38] LABS: ALLEN TEST YES; BE 3.7 mmoll (-3.0-3.0); BLOOD TYPE ARTERIAL; HCO3-(ACT) 27.8 mmoll (20.0-26.0); METHB 1.2 % (0.0-1.5); O2(CT) 16.9 mL/dL (15.0-23.0); PO2(98.6) 100 mmHg (60-100); SAMPLE BLOOD; SAO2 99.4 % (95.0-100.0); THB 12.4 g/dL (11.5-17.4); pH(98.6) 7.34 (7.35-7.45)
[2019-10-27 04:39] LABS: MODALITY BI PAP; PCO2(98.6) 57 mmHg (35-45)
[2019-10-27] MEDS: APRESOLINE IV PRN ×2 (04:46→16:46)
[2019-10-27 06:08] LABS: ALB/GLOB RATIO 1.3; ALBUMIN 2.9 g/dL (3.5-5.0); CALCIUM 9.1 mg/dL (8.8-10.2); CREATININE 1.2 mg/dL (0.5-0.9); PHOSPHORUS 1.9 mg/dL (2.7-4.5); TOTAL BILIRUBIN 0.24 mg/dL (0.20-1.00); TOTAL PROTEIN 5.2 g/dL (6.3-8.3)
[2019-10-27 06:09] LABS: BASO# 0.01 X1000 (0.0-0.2); HEMATOCRIT 38.5 % (37.0-47.0); HEMOGLOBIN 11.8 g/dL (12.0-16.0); IMM GRAN# 0.12 X1000 (0.0-0.04); IMM GRAN% 0.6 % (0.0-0.5); LYMPH# 0.26 X1000 (1.2-3.4); LYMPH% 1.2 % (20.5-51.1); MCH 31.8 PG (27-31); MCHC 30.6 g/dL (33-37); MCV 103.8 FL (81-99); MONO# 0.46 X1000 (0.11-0.59); MONO% 2.2 % (1.7-9.3); MPV 9.8 FL (7.4-10.4); NEUT# 20.37 X1000 (1.4-6.5); PLT 113 X1000 (130-400); RBC 3.71 XMIL (4.2-5.4); RDW 13.7 % (11.5-14.5); WBC 21.22 X1000 (4.8-10.8)
--- NOTE | 2019-10-27 07:19 | Diag Imaging Result Doc PS360 ---
EXAM: CHEST-1 VIEW HISTORY: SOB TECHNIQUE: Single view COMPARISON: 10/26/2019 FINDINGS: The lungs are well expanded. No cardiomegaly. No change in the left-sided PICC line or in the nasogastric tube. Mild increased interstitial markings in the lung bases similar to the prior exam. IMPRESSION: Stable chest Electronically signed by Casey Bustos 10/27/2019 7:16 AM
[2019-10-27] MEDS ORDERED: BLISTEX MEDICATED BERRY LIP BALM TOP PRN (07:40)
[2019-10-27] MEDS: M.V.I.-12 10 ML, FOLIC ACID 1 MG, MAGNESIUM SULFATE 1 GM, THIAMINE 100 MG in NS 1,000 ML IV SCH (08:00)
[2019-10-27] MEDS: MAXIPIME 0.5 GM in NS 50 ML IV SCH (10:24)
[2019-10-27] MEDS: D5W 1,000 ML IV SCH (10:25)
[2019-10-27] MEDS: ZYVOX 600 MG/D5W 600 MG/300 ML IVPB IV SCH (10:25)
--- NOTE | 2019-10-27 12:00 | PROGRESS NOTE ---
DATE: 10/27/2019 Ms. Talavera seems to be more responsive. Her daughter said she actually opened her eyes and told her she loved her, and she does seem to respond and open her eyes to you, seems to be more comfortable. Temperature 97.7 degrees, pulse 95, respirations 20, blood pressure 132/65. Pupils are equal and round. Lungs are clear in all lung jordan. Cardiovascular regular rate without murmur or S3. Abdomen is soft. Skin is warm and dry. Urine output is 2,200 mL. Chest x-ray is stable. Lungs are well expanded. No cardiomegaly. Mild increased interstitial markings in lung bases, similar to prior exam. ASSESSMENT AND PLAN: 1. Chronic obstructive pulmonary disease. 2. Acute on chronic hypoxemic respiratory failure. 3. Hypercapnic respiratory failure. 4. Encephalopathy and suspected alcohol withdrawals, which seems to be improving a little bit. Echocardiogram from 10/18/2019 showed moderately enlarged right atrium, mildly reduced right ventricular systolic dysfunction. Family was at the bedside. Encephalopathy does appear to slowly improve. She is on cefepime 500 mg IV every 12 hours, methylprednisone 40 mg IV every 12 hours and linezolid 600 mg IV every 12 hours. cc: Maximiliano Hester MD
[2019-10-27] MEDS ORDERED: ALBUMIN 25% IV ONE (12:28)
[2019-10-27] MEDS ORDERED: SODIUM PHOSPHATE 40 MEQ in NS 250 ML IV ONE (13:00)
--- NOTE | 2019-10-27 13:35 | PULMONOLOGY PROGRESS NOTE ---
DATE: 10/27/2019 SUBJECTIVE: The patient appears awake. She has mild work of breathing. She does not follow commands. OBJECTIVE: Vital Signs: The patient has been afebrile for the last 24 hours. Blood pressure 132/65, heart rate 95, respiratory rate 21, oxygen saturation 100% on 50% Venturi mask. HEENT: Pupils appear equal. Oropharynx appears dry. Neck: Supple. Chest: Reveals prolonged expiratory phase with distant breath sounds. Cardiac: S1, S2. Abdomen: Soft. Extremities: Reveal generalized edema with weeping. LABORATORY AND DIAGNOSTIC DATA: Chest x-ray reveals mild increased interstitial markings in the lung bases, which are unchanged. White blood count 69897, hemoglobin 11.8, platelet count 113,000. Sodium 149, potassium 5.0, chloride 113, BUN 52, creatinine 1.2. Arterial blood gas, pH 7.34, pCO2 of 57, pO2 of 100 on BiPAP. IMPRESSION: A 74-year-old with: 1. Severe chronic obstructive pulmonary disease. 2. Acute on chronic hypoxemic respiratory failure. 3. Hypercapnic respiratory failure. 4. Encephalopathy. 5. Hypernatremia. PLAN: 1. Continue ICU monitoring. 2. Continue bronchial hygiene. 3. Discontinue D5 normal saline and transition to D5W with hypernatremia. 4. Continue tube feeds. cc: Martin Yo MD
--- NOTE | 2019-10-27 13:58 | Extremity Venous Study ---
PROCEDURE NAME: Venous U/S Bilateral Legs - 10/26/2019 REQUESTING PHYSICIAN: Maximiliano Hester MD. WOOL MIXER: uSleman. INDICATIONS: Questionable thrombosis with cyanotic toes. EQUIPMENT: [employer] Vivid E9 ultrasound system with a 9 L-D transducer. FINDINGS: Images of bilateral lower extremity venous systems were obtained in both sagittal and transverse planes. Doppler was used to evaluate veins for spontaneity, phasicity, respiratory excursion, and digital augmentation. RESULTS: Normal venous compression, normal venous flow. No obvious superficial or deep venous thrombosis noted on this study. INTERPRETATION: Essentially normal bilateral lower extremity venous study. cc: MD Maximiliano Broussard MD
--- NOTE | 2019-10-27 14:01 | VASCULAR LAB ---
PROCEDURE NAME: Arterial Bilateral Legs - 10/26/2019 REQUESTING PHYSICIAN: Maximiliano Hester MD. BLUEPRINTING AND PHOTOCOPY SUPERVISOR: Suleman. INDICATIONS: Questionable thrombus and cyanotic toes. EQUIPMENT: [employer] Vivid E9 ultrasound system with a 9 L-D transducer. FINDINGS: Images of bilateral lower extremity arterial systems were obtained in both sagittal and transverse planes. Doppler was used to evaluate velocity and flow. RESULTS: Flow noted throughout the course in both legs in the arterial system. There is plaque noted in the common femoral arteries bilaterally but no intraluminal thrombus appreciated. INTERPRETATION: Plaque noted bilateral common femoral arteries, but no intraluminal thrombus. If clinical suspicions hold, patient may benefit from a lower extremity arterial study or CT angiography. cc: MD Maximiliano Broussard MD
[2019-10-27] MEDS: LOVENOX SUBQ SCH (16:46)
[2019-10-28] MEDS: SOLU-MEDROL IV SCH ×2 (00:03→13:30)
[2019-10-28] MEDS: D5W 1,000 ML IV SCH ×2 (01:09→17:34)
[2019-10-28] MEDS: DUONEB (A & A) INH SCH ×6 (03:32→23:39)
[2019-10-28] MEDS: APRESOLINE IV PRN ×2 (04:10→16:07)
[2019-10-28 04:26] LABS: ALLEN TEST YES; BLOOD TYPE ARTERIAL; HCO3-(ACT) 26.5 mmoll (20.0-26.0); METHB 0.9 % (0.0-1.5); O2(CT) 14.1 mL/dL (15.0-23.0); O2HB 96.4 % (95.0-99.0); PO2(98.6) 110 mmHg (60-100); SAMPLE BLOOD; SAO2 99.7 % (95.0-100.0); THB 10.3 g/dL (11.5-17.4); pH(98.6) 7.31 (7.35-7.45)
[2019-10-28 04:28] LABS: MODALITY BI PAP; PCO2(98.6) 58 mmHg (35-45)
[2019-10-28 06:45] LABS: BASO# 0.01 X1000 (0.0-0.2); BASO% 0.1 % (0.0-0.8); EOS# 0.01 X1000 (0.0-0.7); EOS% 0.1 % (0.0-10.0); HEMATOCRIT 32.7 % (37.0-47.0); IMM GRAN# 0.07 X1000 (0.0-0.04); IMM GRAN% 0.4 % (0.0-0.5); LYMPH# 0.22 X1000 (1.2-3.4); LYMPH% 1.3 % (20.5-51.1); MCH 32.2 PG (27-31); MCHC 30.6 g/dL (33-37); MCV 105.1 FL (81-99); MONO# 0.29 X1000 (0.11-0.59); MONO% 1.7 % (1.7-9.3); MPV 10.1 FL (7.4-10.4); NEUT# 16.86 X1000 (1.4-6.5); NEUT% 96.4 % (42.2-75.2); PLT 77 X1000 (130-400); RBC 3.11 XMIL (4.2-5.4); RDW 13.9 % (11.5-14.5); WBC 17.46 X1000 (4.8-10.8)
[2019-10-28 06:57] LABS: ALB/GLOB RATIO 1.7; ALBUMIN 3.4 g/dL (3.5-5.0); CALCIUM 8.9 mg/dL (8.8-10.2); CREATININE 1.2 mg/dL (0.5-0.9); MAGNESIUM 2.3 mg/dL (1.5-2.7); PHOSPHORUS 3.7 mg/dL (2.7-4.5); POTASSIUM 5.1 mmol/L (3.5-5.1); TOTAL BILIRUBIN 0.25 mg/dL (0.20-1.00); TOTAL PROTEIN 5.4 g/dL (6.3-8.3)
--- NOTE | 2019-10-28 07:18 | Diag Imaging Result Doc PS360 ---
EXAM: CHEST-1 VIEW 10/28/2019 HISTORY: SOB TECHNIQUE: AP portable at 0534 COMMENT: There is a NG tube with its tip in the stomach and a left PICC line with its tip just above the right atrium. There is cardiomegaly. There is mild interstitial opacity in the lung bases which may indicate pulmonary edema. Compared to 10/27/2019 there has been no significant change. IMPRESSION: Mild pulmonary edema, stable chest. Electronically signed by Tera Hanks 10/28/2019 7:16 AM
[2019-10-28 08:04] LABS: LYMPHS 1 % (21-51); MONO 1 % (1-9); SEGS 98 % (42-75)
[2019-10-28] MEDS ORDERED: ALBUMIN 25% IV ONE (08:05)
--- NOTE | 2019-10-28 08:37 | PROGRESS NOTE ---
DATE: 10/28/2019 SUBJECTIVE: Ms. Talavera is less alert today. Her volume status, she has retained some fluid and she looks like she has some pulmonary venous hypertension. I am going to give her 25 g of albumin and then Lasix 80 mg IV. PHYSICAL EXAMINATION: She is afebrile, temperature 98.1 degrees, pulse 110, respirations 25, blood pressure 139/51. Pupils are equal and round. Lungs are clear in all lung jordan with some rales at the bases anterolaterally. Cardiovascular Examination: Regular rhythm and rate without murmur or S3. Abdomen is soft, nondistended, nontender. She does have swelling in her arms. Her right foot was a little bit dusky yesterday and it looks much better. Her urine output is 2400 mL. Chest x-ray, mild pulmonary edema appreciated. ASSESSMENT AND PLAN: 1. Severe chronic obstructive pulmonary disease. 2. Acute on chronic hypoxemic respiratory failure. 3. Hypercapnic respiratory failure. 4. Encephalopathy which I think is multifactorial but I suspect still some withdrawal from benzodiazepines and from her alcohol. 5. Hypernatremia. 6. Leukocytosis. 7. Her creatinine is at 1.2 which has come down from 1.5. Sodium is down to 147, potassium 5.1, chloride 111, BUN 66. REVIEW OF HER ORDERS: I do not see any change. She is on methylprednisone 40 mg IV q.12. She is on Lovenox 60 mg subcutaneously q.24 hours. Note that her platelet count is at 77,000, I believe. She is making a little improvement as far as her mental status but she seemed to be a little bit more awake and alert yesterday so we will try and diurese a little bit of fluid and see how we do. She is still NPO. cc: Maximiliano Hester MD
[2019-10-28] MEDS ORDERED: LASIX IV ONE (09:00)
[2019-10-28] MEDS: M.V.I.-12 10 ML, FOLIC ACID 1 MG, MAGNESIUM SULFATE 1 GM, THIAMINE 100 MG in NS 1,000 ML IV SCH (09:00)
--- NOTE | 2019-10-28 14:36 | PULMONOLOGY PROGRESS NOTE ---
DATE: 10/28/2019 SUBJECTIVE: The patient's eyes are open. She has mild increased work of breathing. She will not respond to questions. OBJECTIVE: Vital Signs: The patient has been afebrile for the last 24 hours. Blood pressure 139/51, heart rate 107, respiratory rate 22, oxygen saturation 100% on Venturi mask. HEENT: Pupils are equal. Oropharynx appears dry. Neck: Supple. Chest: Reveals markedly diminished breath sounds bilaterally with faint distant wheezing. Cardiac: S1-S2. Abdomen: Soft. Extremities: Reveal 2+ peripheral edema with ongoing weeping noted. She has extremely poor skin condition. LABORATORIES: Chest x-ray reveals mild increased interstitial markings in the lung bases unchanged from 10/27/2019. Sodium 147, potassium 5.1, chloride is 111, BUN 66, creatinine 1.2. White blood count 17.46, hemoglobin 10.0, platelet count 77,000. Arterial blood gas reveals a pH of 7.31, pCO2 of 58, pO2 of 110. IMPRESSION: 74-year-old with 1. Severe chronic obstructive pulmonary disease. 2. Acute on chronic hypoxemic respiratory failure. 3. Hypercapnic respiratory failure. 4. Hypernatremia. 5. Encephalopathy. DISCUSSION: A 74-year-old with problems outlined above. This is hospital day 10 and she has not significantly improved. Her prognosis is guarded to poor. PLAN: 1. Continue to alter Ventimask and BiPAP. 2. Continue bronchial hygiene. 3. Continue D5W until hypernatremia resolves. 4. Continue tube feeds. 5. Recommend ongoing palliative care discussions. Her prognosis appears poor. cc: Martin Yo MD
[2019-10-28] MEDS: LOVENOX SUBQ SCH (16:32)
[2019-10-29] MEDS: SOLU-MEDROL IV SCH ×2 (00:26→13:36)
[2019-10-29] MEDS: D5W 1,000 ML IV SCH ×3 (00:26→19:11)
[2019-10-29] MEDS: DUONEB (A & A) INH SCH ×6 (03:45→23:29)
[2019-10-29 05:38] LABS: ALLEN TEST YES; BLOOD TYPE ARTERIAL; HCO3-(ACT) 27.3 mmoll (20.0-26.0); PCO2(98.6) 49 mmHg (35-45); PO2(98.6) 136 mmHg (60-100); SAMPLE BLOOD; pH(98.6) 7.38 (7.35-7.45)
[2019-10-29 05:40] LABS: MODALITY BI PAP
[2019-10-29 08:41] LABS: ALB/GLOB RATIO 2.4; ALBUMIN 3.3 g/dL (3.5-5.0); CALCIUM 8.5 mg/dL (8.8-10.2); CREATININE 1.2 mg/dL (0.5-0.9); MAGNESIUM 2.3 mg/dL (1.5-2.7); PHOSPHORUS 3.6 mg/dL (2.7-4.5); POTASSIUM 5.9 mmol/L (3.5-5.1); TOTAL BILIRUBIN 0.28 mg/dL (0.20-1.00); TOTAL PROTEIN 4.7 g/dL (6.3-8.3)
[2019-10-29] MEDS ORDERED: LASIX IV ONE (09:01)
[2019-10-29] MEDS ORDERED: ALBUMIN 25% IV ONE (09:01)
--- NOTE | 2019-10-29 09:20 | PROGRESS NOTE ---
DATE: 10/29/2019 SUBJECTIVE: Ms. Talavera is awake but she is lethargic. She does not really respond. She does make eye contact. Still appears to be quite a bit of confusion and delirium. OBJECTIVE: Temperature 98.5 degrees, pulse 108, respirations 28, blood pressure 138/71. Her pupils were equal. No distended neck veins. Her lungs with rales at the bases. Quite a bit of swelling in upper extremities. Her urine output was 4200 mL. She has a PICC line in the left arm. ASSESSMENT AND PLAN: 1. Severe chronic obstructive pulmonary disease. 2. Acute on chronic hypoxemic respiratory failure. 3. Hypercapnic respiratory failure. 4. Hypernatremia. 5. Encephalopathy. I suspect alcohol withdrawal. REVIEW OF HER CURRENT ORDERS: I am going to give her some more albumin 25 g and then 80 of Lasix to see if we can diurese some of this fluid off. Her blood pressures remain well-controlled. I do not see any changes. We have her on Lovenox 60 mg subcutaneously daily. She is on methylprednisolone 40 mg IV. LABORATORY DATA: White count from yesterday was 17,460 which actually came down a little bit. Her hematocrit is 32, platelet count is 77,000. cc: Maximiliano Hester MD
[2019-10-29] MEDS: M.V.I.-12 10 ML, FOLIC ACID 1 MG, MAGNESIUM SULFATE 1 GM, THIAMINE 100 MG in NS 1,000 ML IV SCH (10:30)
[2019-10-29] MEDS: LOVENOX SUBQ SCH (17:30)
[2019-10-30] MEDS: SOLU-MEDROL IV SCH (01:45)
[2019-10-30] MEDS: DUONEB (A & A) INH SCH ×6 (04:00→23:58)
[2019-10-30 05:27] LABS: ALLEN TEST YES; BE 3.5 mmoll (-3.0-3.0); BLOOD TYPE ARTERIAL; HCO3-(ACT) 27.7 mmoll (20.0-26.0); METHB 0.7 % (0.0-1.5); O2(CT) 9.4 mL/dL (15.0-23.0); O2HB 96.8 % (95.0-99.0); PO2(98.6) 125 mmHg (60-100); SAMPLE BLOOD; SAO2 100.2 % (95.0-100.0); THB 6.7 g/dL (11.5-17.4); pH(98.6) 7.36 (7.35-7.45)
[2019-10-30 06:09] LABS: PCO2(98.6) 52 mmHg (35-45)
[2019-10-30 06:10] LABS: MODALITY BI PAP
[2019-10-30 07:02] LABS: ALB/GLOB RATIO 2.5; ALBUMIN 3.2 g/dL (3.5-5.0); CALCIUM 8.6 mg/dL (8.8-10.2); CREATININE 1.4 mg/dL (0.5-0.9); MAGNESIUM 2.3 mg/dL (1.5-2.7); PHOSPHORUS 4.1 mg/dL (2.7-4.5); TOTAL BILIRUBIN 0.22 mg/dL (0.20-1.00); TOTAL PROTEIN 4.5 g/dL (6.3-8.3)
--- NOTE | 2019-10-30 07:02 | Diag Imaging Result Doc PS360 ---
CHEST-PORTABLE HISTORY: abnormal exam TECHNIQUE: Single view COMPARISON: 10/28/2019 FINDINGS: No change in the nasogastric tube or left-sided PICC line. The lungs are hyperexpanded. The heart is enlarged. There is atelectasis and/or infiltrates in the left base with a small effusion. IMPRESSION: Mild interval worsening Electronically signed by Casey Bustos 10/30/2019 6:56 AM
[2019-10-30 08:28] LABS: POTASSIUM 6.4 mmol/L (3.5-5.1)
[2019-10-30] MEDS ORDERED: ALBUTEROL 0.5% INH CONC FOR HYPERKALEMIA INH ONE (08:36)
[2019-10-30] MEDS ORDERED: D50W SYRINGE IV ONE (08:37)
[2019-10-30] MEDS ORDERED: HUMULIN R SUBQ ONE (08:37)
[2019-10-30] MEDS ORDERED: LOKELMA POWDER PACKET PO ONE (09:00)
--- NOTE | 2019-10-30 09:29 | PULMONOLOGY PROGRESS NOTE ---
DATE: 10/29/2019 SUBJECTIVE: The patient is more alert. She will not answer questions. OBJECTIVE: Vital Signs: Blood pressure 146/76, heart rate 110, respiratory rate 28, oxygen saturation 99% with mild increased work of breathing. HEENT: Pupils are equal and reactive. Oropharynx appears dry. Neck: Supple. Chest: Reveals diminished breath sounds bilaterally. Cardiac: S1-S2. Abdomen: Obese and soft. Extremities: Without edema. LABORATORIES: Chemistries are pending. Arterial blood gas reveals a pH 7.38, pCO2 of 49, PO2 of 136. IMPRESSION: A 74-year-old with: 1. Severe chronic obstructive pulmonary disease. 2. [id number] hypoxemic respiratory failure. 3. Hypercapnic respiratory failure. 4. Hypernatremia on labs yesterday. 5. Encephalopathy. DISCUSSION: A 74-year-old with problems outlined above. Her overall condition seems to be extremely poor and she has some component of anasarca. PLAN: 1. Continue Ventimask and BiPAP. 2. Continue D5W. 3. Continue bronchial hygiene. 4. Continue tube feeds. 5. Recommend ongoing palliative care discussion. Her prognosis is extremely poor. cc: Martin Yo MD
[2019-10-30] MEDS: M.V.I.-12 10 ML, FOLIC ACID 1 MG, MAGNESIUM SULFATE 1 GM, THIAMINE 100 MG in NS 1,000 ML IV SCH (09:35)
[2019-10-30] MEDS: HALDOL IV PRN (09:59)
[2019-10-30 11:52] LABS: HEMATOCRIT 19.5 % (37.0-47.0); HEMOGLOBIN 5.6 g/dL (12.0-16.0); MCH 30.4 PG (27-31); MCHC 28.7 g/dL (33-37); MPV 11.8 FL (7.4-10.4); RBC 1.84 XMIL (4.2-5.4); RDW 13.5 % (11.5-14.5); WBC 16.28 X1000 (4.8-10.8)
[2019-10-30] MEDS ORDERED: NORCURON IV ONE (12:30)
[2019-10-30] MEDS ORDERED: AMIDATE IV ONE (12:30)
[2019-10-30] MEDS ORDERED: AMIDATE ONE (12:31)
[2019-10-30] MEDS ORDERED: NORCURON ONE (12:32)
[2019-10-30] MEDS ORDERED: NS 500 ML IV ONE ×2 (12:44→19:15)
[2019-10-30] MEDS ORDERED: ATIVAN IV PRN (12:45)
[2019-10-30] MEDS ORDERED: LEVOPHED 8 MG in D5 1/2 NS 250 ML IV SCH (12:45)
[2019-10-30] MEDS ORDERED: VANCOMYCIN IV PER PHARMACY MISC SCH (13:15)
--- NOTE | 2019-10-30 13:20 | OPERATIVE NOTE ---
PROCEDURE DATE: 10/30/2019 TYPE OF PROCEDURE: Endotracheal intubation because of respiratory failure. INDICATIONS/PROCEDURE IN DETAIL: Ms. Talavera is a 74-year-old female who has been admitted to the hospital for the past 12 days. I understand there have been some discussions about the patient going to DNR status. However, up till this morning, she remains a full code. She was found to be completely altered, minimally responsive with grimace to the face, breathing about 30 to 40 beats per minute. It was felt that she needed to be intubated to protect the airway and also to help with her respiratory failure. Under my supervision, direct visualization and direct laryngoscopy with successful intubation was done by the respiratory therapy. It should be noted that an initial intubation was attempted; however, the patient had very thick secretions in the airway and airway was not very well visualized, so a second attempt was done which was successful, after which the patient was put on the mechanical ventilator. Post intubation x-ray pending. cc: Saud Frazier MD MTDD
[2019-10-30 13:25] LABS: INR 1.1; PROTIME 14.3 Seconds (11.0-16.0)
--- NOTE | 2019-10-30 13:34 | Diag Imaging Result Doc PS360 ---
EXAM: CHEST/ABD TUBE PLACEMENT 10/30/2019 HISTORY: Confirm ET tube and NG tube placement TECHNIQUE: AP chest and abdomen for NG tube placement COMMENT: There is an NG tube in the distal stomach. There is pleural thickening or fluid on the left. The endotracheal tube is not included on this study. IMPRESSION: NG tube in the stomach. Electronically signed by Tera Hanks 10/30/2019 1:31 PM
--- NOTE | 2019-10-30 13:35 | Diag Imaging Result Doc PS360 ---
EXAM: CHEST-PORTABLE 10/30/2019 HISTORY: ET placement TECHNIQUE: AP portable at 1317 COMMENT: There is an endotracheal tube with its tip proximally 4 cm above the franki. There is atelectasis and/or pneumonia in the left lower lobe with apparent left pleural effusion. Blunting of the costophrenic angle is worse than on the previous examination of 10/28/2019 and somewhat worse than on 10/30/2019. IMPRESSION: Left pleural effusion and basilar atelectasis. Electronically signed by Tera Hanks 10/30/2019 1:32 PM
[2019-10-30] MEDS: ALBUMIN 25% IV SCH (13:38)
[2019-10-30] MEDS: SODIUM CHLORIDE 0.9% INJ SCH (13:38)
[2019-10-30] MEDS: PROTONIX IV SCH (13:38)
[2019-10-30] MEDS ORDERED: MAXIPIME 2 GM/NS 2 GM/100 ML IVPB IV SCH (14:00)
--- NOTE | 2019-10-30 14:11 | PROGRESS NOTE ---
DATE: 10/30/2019 SUBJECTIVE: I have seen and examined Ms. Talavera today. When I came in, Ms. Talavera was unresponsive, would barely grimace her face to painful stimulation and would withdraw barely to painful stimulation. The nursing staff had witnessed that yesterday her NG tube had some dark secretions in it. This morning, when I went to examine her, she did have melenic stool in her diapers as well. OBJECTIVE: Vital Signs: Blood pressure is 93/55, pulse of 104, respirations are 29. The patient's temperature was 100.3 degrees. General Examination: Ms. Talavera is a 74-year-old, female. She was in bed. She was on a nonrebreather, nonresponsive. Would only grimace to painful stimulation. She was breathing about 30 to almost 40 per minute. She was saturating well but she was not responsive. Neck: Supple. I did not see any JVD. Chest: Air entry was bilaterally reduced. Cardiovascular: Regular rate and rhythm. Occasional extrasystolic beats. GI: Abdomen was soft. Bowel sounds present. Extremities: About 3+ pedal edema. There was also edema in the lateral aspect of the abdominal wall. SPINE SPECIALIST: The patient is verbally nonresponsive. Pupils were slightly pinpoint and sluggish. She would barely withdraw the lower extremities to stimulation and she would grimace her face. Current Laboratory Data: WBC 16.28, hemoglobin is 5.6, platelet count of 49,000. Chemistry is also reviewed. Sodium is 152, potassium is 6.4, creatinine is 1.4, BUN jumped up to 115. ASSESSMENT: 1. Acute on chronic hypoxemic respiratory failure. 2. Severe chronic obstructive pulmonary disease with exacerbation on admission. 3. Hypercarbic respiratory failure. 4. Altered mental status, which seems to be actually getting worse. The patient is only grimacing to painful stimulation. I think she is also breathing way too much. I think she is going to be tired and I think that she needs to be intubated to protect her airway. 5. Hypernatremia. 6. Hyperkalemia associated with extremely elevated BUN with evidence of a gastrointestinal bleed. The patient had a dark melenic stool at the time of my evaluation. Her hemoglobin has also dropped to 5.6 this morning so we are going to group and crossmatch her, and give her 2 units of packed red blood cells. We will start her on a proton pump inhibitor and get gastroenterology to see her. 7. History of alcohol use and abuse noted. cc: Suad Frazier MD Critical time spent 1 hour. CHERYL
[2019-10-30 14:25] LABS: BLOOD TYPE ARTERIAL; SAMPLE BLOOD
[2019-10-30 14:36] LABS: pH(98.6) 7.27 (7.35-7.45)
[2019-10-30] MEDS: LASIX IV SCH (14:36)
[2019-10-30 14:37] LABS: HCO3-(ACT) 27.3 mmoll (20.0-26.0); PO2(98.6) 134 mmHg (60-100); THB 6.3 g/dL (11.5-17.4)
[2019-10-30 14:38] LABS: METHB 1.2 % (0.0-1.5); MODALITY VENTILATOR; O2HB 97.2 % (95.0-99.0); SAO2 100.6 % (95.0-100.0)
[2019-10-30] MEDS: NS 500 ML IV SCH (14:38)
[2019-10-30 14:39] LABS: ALLEN TEST YES; SRATE 14 BPM; TVOL 500 mL
[2019-10-30 14:40] LABS: PCO2(98.6) 66 mmHg (35-45)
[2019-10-30] MEDS ORDERED: VANCOMYCIN 2,000 MG in NS 500 ML IV ONE (15:00)
[2019-10-30] MEDS: MORPHINE IV PRN (16:36)
[2019-10-30] MEDS: MAXIPIME 2 GM/NS 2 GM/100 ML IVPB IV SCH (18:10)
[2019-10-30] MEDS: DIPRIVAN 1% 1,000 MG/100 ML BOTTLE IV SCH ×2 (18:47→23:34)
--- NOTE | 2019-10-30 19:50 | PROVIDER PROGRESS NOTE ---
Progress Note Dr. Denis Progress Note/Pulmonary and or critical care Subjective: The patient is undergoing selective intubation at this time with Dr. Frazier, respiratory therapist and nurse staff community health at the bedside. She was on NRB 100% with persistent tachypnea up to high 30s and worsening lethargy this morning. Input is appreciated from Dr. Frazier and other teams on the case. Objective: Vital Signs: T 100.3 (highest temperature in last 24 hours), DC 104, RR 27, BP 93/55 and SaO2 100% on NRB 100%. I/O: +1290 ml Physical Examination: General: Intubation on process. HEENT: Normocephalic. Trachea midline. NG tube in place. Chest: Auscultation reveals diminished breathing sounds throughout both lung jordan. CVS: Regular rate and rhythm with S1 and S2 appreciated. Abdomen: Soft. Nondistended. Normoactive bowel sounds in all 4 quadrants noted. Extremities: BLE and BUE 2+ with ongoing weeping. Mild cyanosis. No clubbing. Bruises on BLE noted. Neuro: Lethargic. Unresponsive to verbal stimuli. Grimacing and withdrawing upon pain stimuli. Not answer questions or follow commands. Labs and Radiology: Laboratory Results 10/30/19 10/30/19 10/30/19 04:10 04:30 09:35 WBC RBC Hgb Hct MCV MCH MCHC RDW Std Deviation Plt Count MPV PT INR Fibrinogen Specimen Type ARTERIAL Sample Site R RADIAL pH 7.36 pCO2 52 H* pO2 125 H HCO3 27.7 H Base Excess 3.5 H Oxyhemoglobin 96.8 ABG O2 Sat (Calculated) 9.4 L ABG O2 Saturation 100.2 H ABG Carboxyhemoglobin 2.70 H ABG Methemoglobin 0.7 Maximiliano Test YES A-a O2 Difference 95.0 Total Hemoglobin 6.7 L Lactate 0.80 Blood Gas Modality BI PAP Vent Mode Spontaneous Rate FiO2 % 40.0 Tidal Volume PEEP Inspiratory BiPAP 20.0 Expiratory BiPAP 6.0 Sodium 152 H Potassium 6.4 H* Chloride 113 H Carbon Dioxide 27 Anion Gap 12 BUN 115 H Creatinine 1.4 H Estimated GFR/1.73 m2 37 BUN/Creatinine Ratio 83 Glucose 146 H POC Glucose 211 H Calculated Osmolality 341 Calcium 8.6 L Phosphorus 4.1 Magnesium 2.3 Total Bilirubin 0.22 AST 19 ALT 25 Alkaline Phosphatase 45 Total Protein 4.5 L Albumin 3.2 L Globulin 1.3 Albumin/Globulin Ratio 2.5 Blood Type Blood Type Confirm Antibody Screen Crossmatch 10/30/19 10/30/19 10/30/19 09:45 12:40 13:00 WBC 16.28 H RBC 1.84 L Hgb 5.6 L* Hct 19.5 L MCV 106.0 H MCH 30.4 MCHC 28.7 L RDW Std Deviation 13.5 Plt Count 49 L MPV 11.8 H PT 14.3 INR 1.10 Fibrinogen 183.0 Specimen Type Sample Site pH pCO2 pO2 HCO3 Base Excess Oxyhemoglobin ABG O2 Sat (Calculated) ABG O2 Saturation ABG Carboxyhemoglobin ABG Methemoglobin Maximiliano Test A-a O2 Difference Total Hemoglobin Lactate Blood Gas Modality Vent Mode Spontaneous Rate FiO2 % Tidal Volume PEEP Inspiratory BiPAP Expiratory BiPAP Sodium Potassium Chloride Carbon Dioxide Anion Gap BUN Creatinine Estimated GFR/1.73 m2 BUN/Creatinine Ratio Glucose POC Glucose Calculated Osmolality Calcium Phosphorus Magnesium Total Bilirubin AST ALT Alkaline Phosphatase Total Protein Albumin Globulin Albumin/Globulin Ratio Blood Type O POSITIVE Blood Type Confirm Antibody Screen NEGATIVE Crossmatch See Detail 10/30/19 10/30/19 14:20 18:35 WBC RBC Hgb Hct MCV MCH MCHC RDW Std Deviation Plt Count MPV PT INR Fibrinogen Specimen Type ARTERIAL Sample Site R RADIAL pH 7.27 L pCO2 66 H* pO2 134 H HCO3 27.3 H Base Excess 3.0 Oxyhemoglobin 97.2 ABG O2 Sat (Calculated) ABG O2 Saturation 100.6 H ABG Carboxyhemoglobin 2.10 ABG Methemoglobin 1.2 Maximiliano Test YES A-a O2 Difference Total Hemoglobin 6.3 L Lactate 1.30 Blood Gas Modality VENTILATOR Vent Mode A/C Spontaneous Rate 14 FiO2 % 60.0 Tidal Volume 500 PEEP 5.0 Inspiratory BiPAP Expiratory BiPAP Sodium Potassium Chloride Carbon Dioxide Anion Gap BUN Creatinine Estimated GFR/1.73 m2 BUN/Creatinine Ratio Glucose POC Glucose Calculated Osmolality Calcium Phosphorus Magnesium Total Bilirubin AST ALT Alkaline Phosphatase Total Protein Albumin Globulin Albumin/Globulin Ratio Blood Type Blood Type Confirm O POSITIVE Antibody Screen Crossmatch Assessment: Acute on chronic hypoxemic and hypercapnic respiratory failure. Severe COPD exacerbation with emphysema, pulmonary fibrosis and mild bibasilar pulmonary edema. CXR this morning showed mild interval worsening of atelectasis +/- infiltrates in the left base with a small effusion. Kidney failure with electrolyte abnormality. Global encephalopathy. ProBNP elevation. Echocardiogram on 10/18/19 showed moderately enlarged right atrium right ventricle with mildly reduced right ventricular systolic function. Prognosis is guarded to poor. DNR-2 Plan: Continue current treatment and supportive care per admitting and other teams on the case. We checked AC Ventilation and titrate to the patients needs for clinical protocols. We will keep closely monitoring patients clinical response. We titrate Sedation with diprivan drip to the patients needs per clinical protocols. We will keep closely monitoring patients clinical response. bronchodilators and IV Solu-Medrol. Continue NG tube feeding. Diuresis prn. Appropriate DVT and GI prophylaxis. Evaluation time in minutes: 35 minutes.
[2019-10-31] MEDS: PROTONIX IV SCH ×2 (01:34→13:45)
[2019-10-31] MEDS: MAXIPIME 2 GM/NS 2 GM/100 ML IVPB IV SCH ×3 (02:03→18:20)
[2019-10-31] MEDS: DUONEB (A & A) INH SCH ×6 (03:23→23:05)
[2019-10-31] MEDS: DIPRIVAN 1% 1,000 MG/100 ML BOTTLE IV SCH ×4 (04:07→22:17)
[2019-10-31 05:08] LABS: ALLEN TEST YES; BE 5.4 mmoll (-3.0-3.0); BLOOD TYPE ARTERIAL; HCO3-(ACT) 29.2 mmoll (20.0-26.0); PCO2(98.6) 42 mmHg (35-45); PO2(98.6) 96 mmHg (60-100); SAMPLE BLOOD; SRATE 18 BPM; TVOL 500 mL; pH(98.6) 7.46 (7.35-7.45)
[2019-10-31 05:09] LABS: MODALITY VENTILATOR
[2019-10-31 06:22] LABS: EOS# 0.03 X1000 (0.0-0.7); EOS% 0.2 % (0.0-10.0); HEMATOCRIT 21.7 % (37.0-47.0); HEMOGLOBIN 7.2 g/dL (12.0-16.0); IMM GRAN# 0.04 X1000 (0.0-0.04); IMM GRAN% 0.3 % (0.0-0.5); LYMPH# 0.63 X1000 (1.2-3.4); LYMPH% 5.1 % (20.5-51.1); MCH 30.8 PG (27-31); MCHC 33.2 g/dL (33-37); MCV 92.7 FL (81-99); MONO# 0.72 X1000 (0.11-0.59); MONO% 5.8 % (1.7-9.3); MPV 10.9 FL (7.4-10.4); NEUT# 10.93 X1000 (1.4-6.5); NEUT% 88.6 % (42.2-75.2); PLT 92 X1000 (130-400); RBC 2.34 XMIL (4.2-5.4); RDW 16.9 % (11.5-14.5); WBC 12.35 X1000 (4.8-10.8)
[2019-10-31 07:05] LABS: ALB/GLOB RATIO 2.2; ALBUMIN 3.3 g/dL (3.5-5.0); CALCIUM 8.9 mg/dL (8.8-10.2); CREATININE 1.6 mg/dL (0.5-0.9); POTASSIUM 5.4 mmol/L (3.5-5.1); TOTAL BILIRUBIN 0.47 mg/dL (0.20-1.00); TOTAL PROTEIN 4.8 g/dL (6.3-8.3)
--- NOTE | 2019-10-31 07:17 | Diag Imaging Result Doc PS360 ---
EXAM: CHEST-PORTABLE 10/31/2019 HISTORY: dyspnea TECHNIQUE: AP portable at 0532 COMMENT: There is an endotracheal tube with its tip below the thoracic inlet and an NG tube which passes below the diaphragm into the stomach. There is interstitial pulmonary edema and alveolar opacity in the left lower lobe. The latter appears slightly improved since 10/30/2019. IMPRESSION: Improved pulmonary edema and atelectasis versus pneumonia left lower lobe. Electronically signed by Tera Hanks 10/31/2019 7:14 AM
[2019-10-31] MEDS ORDERED: XYLOCAINE-MPF 2% ONE (08:32)
[2019-10-31] MEDS ORDERED: DIPRIVAN 1% ONE (08:32)
[2019-10-31] MEDS: SOLU-MEDROL IV SCH (09:19)
[2019-10-31] MEDS: LASIX IV SCH (09:19)
[2019-10-31] MEDS: ALBUMIN 25% IV SCH (09:19)
[2019-10-31] MEDS: M.V.I.-12 10 ML, FOLIC ACID 1 MG, MAGNESIUM SULFATE 1 GM, THIAMINE 100 MG in NS 1,000 ML IV SCH (09:19)
--- NOTE | 2019-10-31 10:03 | GASTROENTEROLOGY CONSULTATION ---
DATE: 10/31/2019 REASON FOR CONSULT: GI bleed. HISTORY OF PRESENT ILLNESS: Ms. Talavera is a 74-year-old, female who has been in the hospital since 10/18/2019. She was brought in from the intermediate with low oxygen saturation. The patient is on a mechanical ventilator, intubated and sedated. Most of the history is gathered from the previous medical records and talking to the nursing staff. The patient has a history of COPD, hyponatremia, hypertensive heart disease, hyperkalemia, acute on chronic hypocapnia, hypoxemic respiratory failure, osteoarthritis, weakness, nicotine use and TIAs in the past. She was recently at [facility] and was discharged 2 days prior to admission to [facility] with low oxygen levels. Gastroenterology was consulted yesterday for her GI bleed. Her hemoglobin and hematocrit yesterday were 5.6 and 19.5. The patient has so far received 2 units of packed red blood cells and 1 unit of platelets. PAST MEDICAL HISTORY: COPD, hyponatremia, hypertensive heart disease, hyperkalemia, acute on chronic hypercapnic, hypoxemic respiratory failure, osteoarthritis, weakness, and nicotine use. PAST SURGICAL HISTORY: Unknown. FAMILY HISTORY: No significant GI malignancies. ALLERGIES: No known drug allergies. MEDICATIONS: The patient's home medications are Advair 250/50 one puff inhalation twice a day, hydrocodone/acetaminophen 10/325 mg tablet p.o. every 4 to 6 hours as needed, Levaquin 500 mg daily, and Combivent Respimat 20/100 mcg inhalation 4 times a day. REVIEW OF SYSTEMS: The patient is currently on a mechanical ventilator and is sedated. Unable to gather much information. PHYSICAL EXAMINATION: Vital Signs: Temperature 99.6 degrees, pulse 84, respirations 18, blood pressure 172/84, oxygen saturation 100% on mechanical ventilator. The patient's weight is 211 pounds. BMI is 37.5 kg/m2. General: On a mechanical ventilator, sedated. Unable to assess. HEENT: Pale conjunctivae. No icterus. PERRL. Neck: Supple. Diminished breath sounds heard in the anterior lobes. Cardiovascular: Regular rate and rhythm. Abdomen: Obese, soft. Active bowel sounds heard in all 4 quadrants. Extremities: No clubbing, no cyanosis. +1 pitting edema noted bilaterally. Neurologic: The patient is on a mechanical ventilator and sedated. LABS: WBCs are 12.35, RBCs 2.34, hemoglobin 7.2, hematocrit 21.7, platelet count is 92,000. Sodium 153, potassium 5.4, chloride 114, carbon dioxide is 27, anion gap 12, BUN 116, creatinine is 1.6, glucose 112, calcium 8.9. Total bilirubin 0.47, AST 21, ALT 22, alkaline phosphatase 38, albumin is 3.3. IMAGING: Chest x-ray today showed improved pulmonary edema and atelectasis versus pneumonia in the left lower lobe. IMPRESSION AND PLAN: 1. Gastrointestinal bleed. 2. Acute blood loss anemia. 3. Acute respiratory failure. 4. Chronic obstructive pulmonary disease. 5. Hypernatremia. 6. Hyperkalemia. 7. Acute kidney injury. 8. Possible sepsis. PLAN: Ms. Talavera is a 74-year-old female with a history of hypertensive heart disease and COPD. GI has been consulted for her GI bleed. The patient's hemoglobin and hematocrit today are 7.2 and 21.7. It has trended upwards after she received 2 units of packed red blood cells. The patient is currently on a mechanical ventilator, sedated, with NG tube in place on low intermittent suction. Dr. Mccullough spoke to her son, Paxton Talavera, regarding the EGD procedure today. Her son is on board with going ahead and doing the procedure. We plan to do an EGD to find out the cause of her bleeding. Further plan of care will be based on the EGD findings. Discussed the risks, benefits, and alternatives of the procedure to the son and he acknowledges understanding of the plan of care. This plan was discussed with Dr. Mccullough. Thank you for the consult. Please call us for any further questions or concerns. Dictated by HEDY Baeza for Trell Mccullough MD [facility]
[2019-10-31] MEDS ORDERED: EPINEPHRINE SYRINGE ONE (10:04)
--- NOTE | 2019-10-31 10:38 | ENDOSCOPY OPERATIVE NOTE ---
[facility] ENDOSCOPY OPERATIVE NOTE , EGD PROCEDURE REPORT EXAM DATE: 10/31/2019 PATIENT NAME: Alida Talavera MR#: [id number] BIRTHDATE: 1945 ATTENDING: Trell Mccullough MD STATUS: inpatient WINDOWS SOFTWARE ENGINEER: INDICATIONS: The patient is a 74 yr old female here for an EGD due to melena and acute post hemorrha gic anemia. PROCEDURE PERFORMED: EGD w/ control of bleeding MEDICATIONS: Per Anesthesia ESTIMATED BLOOD LOSS: None CONSENT: The patient understands the risks and benefits of the procedure and understands that these r isks include, but are not limited to: sedation, allergic reaction, infection, perforation and/or bleeding. Alternative means of evaluation and treatment include, among others: physical exam, x-rays, and/or surgical intervention. The patient elects to proceed with this endoscopic procedure. DESCRIPTION OF PROCEDURE: During pre-op preparation period all mechanical and medical equipment was c hecked for proper function. Hand hygiene and appropriate measures for infection prevention was taken. After the risks, benefits and alternatives of the procedure were thoroughly explained, Informed consent was verified, confirmed and timeout was successfully executed by the treatment team. The patient was anesthetized with topical anesthesia and the UE27-[id number] ([id number]) endoscope was introduced through the mouth and advanced to the second portion of the duoden um. Retroflexion was performed in the stomach and revealed no abnormalities. The gastroscope was then slowly withdraw n and removed. The patient's toleration of the procedure was excellent. ESOPHAGUS: Esophagitis was found in the middle third of the esophagus and lower third esophagus. Eso phagitis was LA Class C: Mucosal breaks continuous between > 2 mucosal folds, but involving less than 75% of the esop hageal circumference. This is likely the result of NGT trauma. STOMACH: Multiple non-bleeding, round, punctate and clean-based ulcers ranging between 3-7mm in size with one having red spot were found in the gastric antrum. Cautery was applied to the the ulcer with red spot. DUODENUM: Moderate duodenal inflammation was found in the duodenal bulb and 2nd part duodenum. A si ngle bleeding ulcer measuring 25mm in size with a large adherent clot and active oozing of blood was found in the 2nd par t of the duodenum. 4 mL of epinephrine 1:24998 was injected around the ulcer with good treatment effect. The clot was r emoved with snare. The base of the ulcer revealed active oozing throughout. The sitewas cauterized with monopol ar probe with good treatment effect. A single non-bleeding and shallow ulcer measuring 30mm in size with a pigmented sp ot was found in the duodenal bulb. Cautery was applied to the site. With good treatment effect. Multiple non-blee ding, clean-based, shallow and irregular shaped ulcers ranging between 3-7mm in size were found in the duodenal bulb and 2nd part duodenum. There was no active bleeding at the end of the procedure. ADVERSE EVENTS: There were no complications. IMPRESSIONS: ESOPHAGUS: Esophagitis was found in the middle third of the esophagus and lower third esophagus. Eso phagitis was LA Class C: Mucosal breaks continuous between > 2 mucosal folds, but involving less than 75% of the esop hageal circumference. This is likely the result of NGT trauma. STOMACH: Multiple non-bleeding, round, punctate and clean-based ulcers ranging between 3-7mm in size with one having red spot were found in the gastric antrum. Cautery was applied to the the ulcer with red spot. DUODENUM: Moderate duodenal inflammation was found in the duodenal bulb and 2nd part duodenum. A si ngle bleeding ulcer measuring 25mm in size with a large adherent clot and active oozing of blood was found in the 2nd par t of the duodenum. 4 mL of epinephrine 1:46630 was injected around the ulcer with good treatment effect. The clot was r emoved with snare. The base of the ulcer revealed active oozing throughout. The sitewas cauterized with monopol ar probe with good treatment effect. A single non-bleeding and shallow ulcer measuring 30mm in size with a pigmented sp ot was found in the duodenal bulb. Cautery was applied to the site. With good treatment effect. Multiple non-blee ding, clean-based, shallow and irregular shaped ulcers ranging between 3-7mm in size were found in the duodenal bulb and 2nd part duodenum. RECOMMENDATIONS: NPO. Do not replace NGT for 48 hours Ordered 1 unit pRBCs to be transfused now Continue to trend H/H, transfuse prn for goal hgb 7-8 Continue PPI IV BID Avoid blood thinners and NSAIDs If patient is to be extubated and hgb stable, then ok to start clear liquid diet tomorrow REPEAT EXAM: Trell Mccullough MD eSigned: Trell Mccullough MD 10/31/2019 10:38 AM CC: CPT CODES: 60067 Upper gastrointestinal endoscopy including esophagus, stomach, and either the du odenum and/or jejunum as appropriate; with control of bleeding, any method ICD CODES: 578.1 Blood in stool 285.1 Acute posthemorrhagic anemia The ICD and CPT codes recommended by this software are interpretations from the data that the [facility] staff has captured with the software. The verification of the translation of this report to the ICD and CPT co jen and modifiers is the sole responsibility of the health care institution and practicing physician where this report was generated. [employer] will not be held responsible for the validity of the ICD and CPT codes i ncluded on this report. A assumes no liability for data contained or not contained herein. CPT is a registered tra demark of the [employer]. PATIENT NAME: Alida Talavera MR#: [id number]
--- NOTE | 2019-10-31 13:04 | PROGRESS NOTE ---
DATE: 10/31/2019 SUBJECTIVE: Ms. Talavera continues to be intubated this morning. She is currently sedated on propofol drip. Ms. Talavera underwent EGD early this morning. OBJECTIVE: Vital Signs: Blood pressure is 178/84, pulse of 89, respirations 18, temperature is 99.6 degrees. General: On exam, Ms. Talavera is a 74-year-old elderly female. She is in bed, currently intubated and sedated on propofol. HEENT: Mucosa is pink. Chest: Good air entry bilaterally. There are some transmitted sounds from the ventilator. Cardiovascular: Regular rate and rhythm. Occasional extrasystolic beats. Gastrointestinal: The abdomen is soft. Bowel sounds present. Extremities: About 2+ pedal edema. Central Nervous System: The patient is intubated, sedated on propofol. Pupils are pinpoint but they are reactive, and the patient will grimace to painful stimulation. LABORATORY DATA: WBC is down to 12.35, hemoglobin is 7.2, platelet count is up to 92. Chemistry is also reviewed. Sodium is 153, potassium is 5.4, chloride is 114, BUN is up to 116, creatinine is up to 1.6. So far, the sputum culture is growing gram-negative gary. The patient's input and output, urine output is 2600, still positive balance of over 26,000 on fluids. Patient is status post 2 PRBC and 1 platelet transfusion. The endoscopy report shows that the patient had esophagitis. There were also multiple nonbleeding, round, punctate, and clean base ulcers in the stomach. The duodenum also had a moderate duodenal inflammation in the duodenal bulb and the second part. There was a single bleeding ulcer measuring 25 mm in size with a large adherent clot and active oozing of blood was found in the second part of the duodenum. This was treated endoscopically. ASSESSMENT AND PLAN: 1. Acute on chronic hypoxemic respiratory failure. Patient continues to be on ventilator support. Pulmonary Medicine is on board. Today is day 2 on the ventilator. 2. Gram-negative gary pneumonia. The patient is on cefepime and vancomycin. Vancomycin has been discontinued this morning. We will be pending the identification and sensitivity of the gram- negative gary. 3. Severe chronic obstructive pulmonary disease with exacerbation on admission. We will continue with the nebulization, steroids, antimicrobial. 4. Symptomatic massive gastrointestinal bleed. Hemoglobin dropped to 5.6. Esophagogastroduodenoscopy this morning seems to suggest multiple ulcers with the duodenum, one was bleeding which was endoscopically treated. Hemoglobin is up to 7.2. There is a plan to give her another unit of packed red blood cells. 5. Thrombocytopenia. The patient is status post 1 platelet transfusion. There was a good response. We will continue to monitor. 6. Fluid overload. The patient is currently more than 26,000 mL of positive fluid balance. We are going to continue giving her a combination of albumin with Lasix. 7. History of alcohol use and abuse, noted. 8. Multiple some upper gastrointestinal ulcers (peptic ulcer disease). The patient is currently on proton pump inhibitor. We will also check her Helicobacter pylori status. I think once she is more stabilized, Wilber syndrome will need to be ruled out because of the multiple ulcers that the patient has. 9. Nonoliguric acute kidney injury. We will continue to avoid any nephrotoxin and monitor the renal function. Patient's urine output is adequate. TIME SPENT: Critical time spent is 45 minutes. cc: Saud Frazier MD
[2019-10-31] MEDS ORDERED: HALDOL IV PRN (13:11)
[2019-10-31] MEDS: LABETALOL IV PRN ×2 (13:25→18:20)
[2019-10-31] MEDS: NS 500 ML IV SCH (13:45)
[2019-10-31] MEDS: SODIUM CHLORIDE 0.9% INJ SCH (13:46)
--- NOTE | 2019-10-31 13:55 | NEUROLOGY CONSULTATION ---
DATE: 10/31/2019 SUBJECTIVE: Ms. Talavera is 74 years old, currently intubated and sedated with propofol. She presented with evidence of acute on chronic hypoxemic respiratory failure with hypercarbia. There has been evidence of pneumonia. There is reported to be significant past history of ethanol misuse and concern for ethanol withdrawal here. Lab has shown initial hyponatremia, sodium 116, gradually improved and now hypernatremia, sodium 153 today. BUN was 57 on presentation, 30s several days ago and over 100 today. Blood sugars have been 100s-low 200s. There was initial mild hypocalcemia and subsequent calcium levels have been minimally low or normal. She has had mostly normal phosphorus and magnesium levels. Liver enzymes have not been elevated. She had initial WBC 90873, WBC as high as nearly 24,000, last WBC 36209 today. There is anemia with hemoglobin as low as 5.6 yesterday. She has had GI evaluation and workup as documented. 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 The home medication list provided for this admission includes hydrocodone. PDMP shows hydrocodone prescriptions filled twice this month and clonazepam filled monthly. We do not have urine drug screen on admission. OBJECTIVE: On exam, Ms. Talavera is supine, intubated, mechanically ventilated. Propofol is on board. There is brisk lateral eye movement with passive head turning. Pupils react to bright light. Corneal reflex is present bilaterally. Facial motility is difficult to dressage judge with tubes and tape, but appears symmetric. Limb tone is symmetric. Plantar response is silent bilaterally. I could not get her to be alert or to communicate. Neck is supple. IMPRESSION: 1. Global encephalopathy, consistent with her heavy sedation. 2. Report of some restlessness and likely agitated confusion on presentation. This may be consistent with a withdrawal syndrome, possibly ethanol, possibly benzodiazepine, possibly multiple. Subsequent stupor could be related to substance intoxication, but is more likely due to the sedatives provided here. PLAN: I do not see clinical evidence of increased intracranial pressure or central nervous system infection. We will plan EEG when practical, specifically when propofol can be held. Further plans will depend on the EEG report and on her clinical course. I do not have any other suggestion from Neurology standpoint right now. Thanks for asking us to see Ms. Talavera. cc: Viki Cobian III, MD [facility]
[2019-10-31] MEDS: MORPHINE IV PRN ×2 (13:59→18:20)
--- NOTE | 2019-10-31 15:10 | PROVIDER PROGRESS NOTE ---
Progress Note Dr. Denis Progress Note/Pulmonary and or critical care Subjective: The patient remains intubated with no acute distress noted. She is on diprivan drip at 30 mcg/kg/min at this time. No family at the bedside. Input is appreciated from Dr. Frazier and other teams on the case. Objective: Vital Signs: T 99.6 (low fever in last 24 hours), VA 89, RR 18, BP 172/84 and SaO2 99% on AC 18, 40%, 500, 5. I/O: +644 ml Physical Examination: General: Intubated. HEENT: Normocephalic. Trachea midline. ET tube in place. Chest: Auscultation reveals diminished breathing sounds in the right side of the lung jordan. CVS: Regular rate and rhythm with S1 and S2 appreciated. Abdomen: Soft. Nondistended. Normoactive bowel sounds in all 4 quadrants noted. Extremities: BLE and BUE 2+ with ongoing weeping. Mild cyanosis. No clubbing. Bruises on BLE noted. Neuro: Sedated. Labs and Radiology: Laboratory Results 10/30/19 10/30/19 10/31/19 12:40 18:35 04:58 WBC RBC Hgb Hct MCV MCH MCHC RDW Std Deviation Plt Count MPV Immature Gran % (Auto) Neut % (Auto) Lymph % (Auto) [place] % (Auto) Eos % (Auto) Baso % (Auto) Immature Gran # (Auto) Neut # (Auto) Lymph # (Auto) [place] # (Auto) Eos # (Auto) Baso # (Auto) Specimen Type ARTERIAL Sample Site R RADIAL pH 7.46 H pCO2 42 pO2 96 HCO3 29.2 H Base Excess 5.4 H Maximiliano Test YES A-a O2 Difference 137.0 Lactate 0.80 Blood Gas Modality VENTILATOR Vent Mode A/C Spontaneous Rate 18 FiO2 % 40.0 Tidal Volume 500 PEEP 5.0 Sodium Potassium Chloride Carbon Dioxide Anion Gap BUN Creatinine Estimated GFR/1.73 m2 BUN/Creatinine Ratio Glucose Calculated Osmolality Calcium Total Bilirubin AST ALT Alkaline Phosphatase Total Protein Albumin Globulin Albumin/Globulin Ratio Blood Type O POSITIVE Blood Type Confirm O POSITIVE Antibody Screen NEGATIVE Crossmatch See Detail 10/31/19 10/31/19 05:00 05:00 WBC 12.35 H RBC 2.34 L Hgb 7.2 L D Hct 21.7 L MCV 92.7 MCH 30.8 MCHC 33.2 RDW Std Deviation 16.9 H Plt Count 92 L D MPV 10.9 H Immature Gran % (Auto) 0.3 Neut % (Auto) 88.6 H Lymph % (Auto) 5.1 L [place] % (Auto) 5.8 Eos % (Auto) 0.2 Baso % (Auto) 0.0 Immature Gran # (Auto) 0.04 Neut # (Auto) 10.93 H Lymph # (Auto) 0.63 L [place] # (Auto) 0.72 H Eos # (Auto) 0.03 Baso # (Auto) 0.00 Specimen Type Sample Site pH pCO2 pO2 HCO3 Base Excess Maximiliano Test A-a O2 Difference Lactate Blood Gas Modality Vent Mode Spontaneous Rate FiO2 % Tidal Volume PEEP Sodium 153 H Potassium 5.4 H D Chloride 114 H Carbon Dioxide 27 Anion Gap 12 BUN 116 H Creatinine 1.6 H Estimated GFR/1.73 m2 32 BUN/Creatinine Ratio 73 Glucose 112 H Calculated Osmolality 342 Calcium 8.9 Total Bilirubin 0.47 AST 21 ALT 22 Alkaline Phosphatase 38 Total Protein 4.8 L Albumin 3.3 L Globulin 1.5 Albumin/Globulin Ratio 2.2 Blood Type Blood Type Confirm Antibody Screen Crossmatch Assessment: Acute on chronic hypoxemic and hypercapnic respiratory failure. Severe COPD exacerbation with emphysema, pulmonary fibrosis and mild bibasilar pulmonary edema. CXR today shows improved pulmonary edema and atelectasis vs. pneumonia left lower lobe. Kidney failure with electrolyte abnormality. Global encephalopathy. ProBNP elevation. Echocardiogram on 10/18/19 showed moderately enlarged right atrium right ventricle with mildly reduced right ventricular systolic function. Prognosis is guarded to poor. DNR-2 Plan: Continue current treatment and supportive care per admitting and other teams on the case. We checked Ventilation and titrate to the patients needs for clinical protocols. We will keep closely monitoring patients clinical response. We titrated Sedation (discontinue diprivan; start prn morphine and Haldol) to the patients needs per clinical protocols. We will keep closely monitoring patients clinical response. bronchodilators and IV Solu-Medrol. EGD is planning today per GI specialist. NG tube feeding stays on hold. We discontinued diprivan as Dr. Cobian is planning for EEG. We discontinued Ativan. Diuresis prn. Appropriate DVT and GI prophylaxis. Evaluation time in minutes: 34 minutes.
[2019-10-31] MEDS ORDERED: DIPRIVAN 1% 1,000 MG/100 ML BOTTLE ONE (18:39)
[2019-10-31 20:45] LABS: UR CREAT RANDOM 16.6 mg/dL (11-20)
[2019-10-31 23:41] LABS: HEMATOCRIT 25.7 % (37.0-47.0); HEMOGLOBIN 8.3 g/dL (12.0-16.0)
[2019-11-01] MEDS: MAXIPIME 2 GM/NS 2 GM/100 ML IVPB IV SCH ×3 (02:07→18:45)
[2019-11-01] MEDS: PROTONIX IV SCH ×2 (02:07→13:02)
[2019-11-01] MEDS ORDERED: VANCOMYCIN 1,750 MG in NS 250 ML IV SCH ×2 (03:00→14:00)
[2019-11-01] MEDS: DUONEB (A & A) INH SCH ×5 (03:15→23:08)
[2019-11-01] MEDS: DIPRIVAN 1% 1,000 MG/100 ML BOTTLE IV SCH ×7 (03:34→22:32)
[2019-11-01 04:34] LABS: ALLEN TEST YES; BE 4.3 mmoll (-3.0-3.0); BLOOD TYPE ARTERIAL; HCO3-(ACT) 28.3 mmoll (20.0-26.0); PCO2(98.6) 33 mmHg (35-45); PO2(98.6) 123 mmHg (60-100); SAMPLE BLOOD; SRATE 18 BPM; TVOL 500 mL; pH(98.6) 7.52 (7.35-7.45)
[2019-11-01 04:35] LABS: MODALITY VENTILATOR
[2019-11-01 05:53] LABS: EOS# 0.06 X1000 (0.0-0.7); EOS% 0.4 % (0.0-10.0); HEMATOCRIT 26.3 % (37.0-47.0); HEMOGLOBIN 8.6 g/dL (12.0-16.0); IMM GRAN# 0.04 X1000 (0.0-0.04); IMM GRAN% 0.3 % (0.0-0.5); LYMPH# 0.44 X1000 (1.2-3.4); LYMPH% 2.8 % (20.5-51.1); MCH 29.4 PG (27-31); MCHC 32.7 g/dL (33-37); MCV 89.8 FL (81-99); MONO# 0.38 X1000 (0.11-0.59); MONO% 2.4 % (1.7-9.3); MPV 11.3 FL (7.4-10.4); NEUT# 14.69 X1000 (1.4-6.5); NEUT% 94.1 % (42.2-75.2); PLT 90 X1000 (130-400); RBC 2.93 XMIL (4.2-5.4); RDW 18.7 % (11.5-14.5); WBC 15.61 X1000 (4.8-10.8)
[2019-11-01 06:13] LABS: ALB/GLOB RATIO 1.7; ALBUMIN 3.2 g/dL (3.5-5.0); CALCIUM 8.8 mg/dL (8.8-10.2); CREATININE 1.7 mg/dL (0.5-0.9); POTASSIUM 4.9 mmol/L (3.5-5.1); TOTAL BILIRUBIN 0.65 mg/dL (0.20-1.00); TOTAL PROTEIN 5.1 g/dL (6.3-8.3)
[2019-11-01 06:21] LABS: LYMPHS 3 % (21-51); MONO 2 % (1-9); SEGS 95 % (42-75)
[2019-11-01] MEDS: M.V.I.-12 10 ML, FOLIC ACID 1 MG, MAGNESIUM SULFATE 1 GM, THIAMINE 100 MG in NS 1,000 ML IV SCH (08:51)
[2019-11-01] MEDS: D5W 1,000 ML IV SCH (08:51)
[2019-11-01] MEDS: SOLU-MEDROL IV SCH (08:51)
[2019-11-01] MEDS: ALBUMIN 25% IV SCH (08:51)
--- NOTE | 2019-11-01 10:02 | EEG REPORT ---
DATE: 10/31/2019 EEG NUMBER AND DATE: [id number] done on 10/31/2019. COMMENT: This is a digitally recorded EEG done portably in the ICU on a 74-year-old patient with clinically apparent global encephalopathy, possible earlier ethanol withdrawal, recently discontinued propofol. FINDINGS: Usual ventilator and ICU artifacts are apparent and do not hinder interpretation. The EEG shows polymorphic and rhythmic theta as the dominant rhythm across both hemispheres, mostly 4 to 6 hertz. There is occasional higher amplitude delta frontally bilaterally. Activating procedures were not done. There was not definite epileptiform discharge identified. INTERPRETATION: Abnormal EEG because of generalized slowing. CORRELATION: This is indicative of a diffuse encephalopathy and is nonspecific. cc: Viki Cobian III, MD
--- NOTE | 2019-11-01 10:51 | PROGRESS NOTE ---
DATE: 11/01/2019 SUBJECTIVE: The patient, this morning, continues to be intubated and sedated. Per the nursing staff, she has been fairly stable throughout the night. No new complaints. No family member at the bedside at the time of the encounter. OBJECTIVE: Vital Signs: Blood pressure is 151/61, pulse of 66, respirations 18, temperature 97.4 degrees, the patient is saturating 100% on mechanical ventilator. General: Ms. Talavera is a 74- year-old, elderly, female. She is in bed, currently intubated and sedated on propofol. HEENT: Mucosa is pink and moist. Anicteric. Acyanotic. Neck: Supple. No JVD. Chest: Air entry is bilaterally reduced with some transmitted sounds from the ventilator. Cardiovascular: Regular rate and rhythm. Occasional extrasystolic beats. GI: Abdomen is soft. It is globally distended. Umbilical hernia is noted. Bowel sounds present. Extremities: No pedal edema. : Rogers catheter is in place. 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 She does not follow any commands. Pupils are kind of pinpoint, but reactive. She keeps shaking the head no to almost everything that you say. I am not sure if it is purposeful or if it is not. She will withdraw to painful stimulation, and she would track with the eyes. IMAGING AND LABORATORY DATA: WBC is 15.61, hemoglobin is 8.6, platelet count of 90,000. The patient has 95% neutrophils in the serum. ABG was reviewed and shows mixed alkalosis. Sodium is 154, potassium is 4.9, chloride is 114, BUN is 111, creatinine is 1.7. The patient's intake and output shows urine output was 3350. She is currently positive balance of 25,000. No chest x-ray for this morning. ASSESSMENT: 1. Acute on chronic hypoxemic respiratory failure. The patient continues to be intubated. Pulmonary Medicine is on board. Today is day 3 on the ventilator. ABGs have been reviewed. 2. Pseudomonas aeruginosa pneumonia. The identity and sensitivity has been reviewed. The patient is on cefepime. Today is day 2 on cefepime for a treatment of a total of 10 to 14 days. 3. Severe chronic obstructive pulmonary disease with exacerbation on admission. The patient is on standard of care. 4. Massive gastrointestinal bleed with hemoglobin dropping to 5.6. She is status post 3 packed red blood cell transfusions, 1 platelet transfusion. Hemoglobin and hematocrit have improved. This morning, it is at 8.6. 5. Multiple gastroduodenal ulcers with bleeding duodenal ulcer, status post endoscopic treatment. 6. Thrombocytopenia. Remains stable. 7. Fluid overload. The patient is about 25,000 mL positive balance. She looks slightly better than yesterday. 8. History of alcohol use and abuse. Noted. 9. Nonoliguric acute kidney injury. Creatinine remains fairly stable. The patient is making adequate urine. We are going to continue to monitor and avoid any nephrotoxins. 10. Hypernatremia. This has been observed over the past couple of days. It continues to gradually get worse. Will start the patient on D5 today. In general, Ms. Talaevra continues to be on mechanical ventilator. Will be pending on Pulmonary Medicine evaluation today to see if she can start on the spontaneous breathing trial. Her sputum culture is positive for Pseudomonas. She is on cefepime, which is adequate antimicrobial coverage. We have started her on D5 to correct her hypertonicity. I will continue with the rest of her critical care management. TIME SPENT: Critical time spent is 45 minutes. cc: Saud Frazier MD
--- NOTE | 2019-11-01 11:27 | GASTROENTEROLOGY PROGRESS NOTE ---
DATE: 11/01/2019 SUBJECTIVE: Ms. Talavera is a 74-year-old, female, resting in bed, who is intubated and is on a mechanical ventilator, sedated, unable to assess the patient. No family at the bedside. OBJECTIVE: Vital Signs: Temperature 97.4 degrees, pulse 66, respirations 18, blood pressure 151/61, oxygen saturation 95% on a mechanical ventilator. The patient's weight is 218 pounds. BMI is 38.7 kg/m2. General: The patient is on a mechanical ventilator, sedated. Unable to assess. HEENT: Pale conjunctivae. No icterus. PERRL. Neck: Supple. Lungs: Wheezing heard in the anterior jordan. Cardiovascular: Regular rate and rhythm. Abdomen: Soft, mildly distended. Active bowel sounds heard in all 4 quadrants. Extremities: No clubbing, no cyanosis, no edema. Pedal pulses 2+ present bilaterally. Neurologic: The patient is on a mechanical ventilator. LABORATORY DATA: WBCs of 15.61, RBCs 2.93, hemoglobin is 8.6, hematocrit is 26.3, platelet count is 90,000. Sodium 154, potassium 4.9, chloride 114, carbon dioxide is 25, anion gap is 15, BUN is 111, creatinine is 1.7, glucose 127, calcium 8.8. Total bilirubin is 0.65, AST 21, ALT, ALT 24, alkaline phosphatase 37, albumin is 3.2. IMPRESSION AND PLAN: COPD GI bleed Anemia Duodenal ulcer Gastric ulcer PLAN: Ms. Talavera is a 74-year-old, female with a history of hypertensive heart disease and COPD. GI has been following her for a GI bleed. An EGD was done yesterday. The patient had esophagitis in the middle third of the esophagus and lower third esophagus. The stomach had nonbleeding, clean- based ulcers. Duodenum had duodenal ulcer. The patient is currently n.p.o., and it is recommended that they do not replace the NG tube for 48 hours. We will continue the patient with PPIs twice a day. The patient has been also recommended to avoid blood thinners and NSAIDs. Once the patient is extubated and the hemoglobin is stable, the patient can start clear liquid diet. Her hemoglobin and hematocrit are 8.6 and 26.3. It is currently starting to trend upwards, but if her hemoglobin drops below 7, we will transfuse PRBC's per protocol with the goal of keeping it between 7 to 8 g/dL. We will continue to monitor the patient, provide supportive care, and follow the plan of care per PCP. This plan was discussed with Dr. Gibson. Please call us for any further questions or concerns. Dictated by HEDY Baeza for Jackson Gibson MD cc: Jackson Gibson MD I have seen and examined the patient myself and I agree with the above plan of care. Please call us with any further questions or concerns. MTDD
[2019-11-01] MEDS: NS 500 ML IV SCH (13:02)
[2019-11-01] MEDS: SODIUM CHLORIDE 0.9% INJ SCH (13:02)
[2019-11-01 15:06] LABS: HEMATOCRIT 24.3 % (37.0-47.0); HEMOGLOBIN 7.9 g/dL (12.0-16.0)
--- NOTE | 2019-11-01 16:04 | PROVIDER PROGRESS NOTE ---
Progress Note Dr. Denis Progress Note/Pulmonary and or critical care Subjective: The patient remains intubated with no acute distress noted. She is on Diprivan drip at 55 mcg/kg/min at this time. Apparently yesterday afternoon after EEG performed, patient became widely awake and was thrashing head side to side frequently. RN reports patient did show some signs of communication at that time. As both morphine and Haldol did not help, Dr. Frazier ordered to put her back on Diprivan drip since then. No family at the bedside. Input is appreciated from Dr. Frazier and other teams on the case. Objective: Vital Signs: T 98.0 (low fever in last 24 hours), NM 73, RR 18, BP 164/73 and SaO2 100% on AC 18, 40%, 500, 5. I/O: -596 ml Physical Examination: General: Intubated. HEENT: Normocephalic. Trachea midline. ET tube in place. Chest: Auscultation reveals diminished breathing sounds in the right side of the lung jordan. CVS: Regular rate and rhythm with S1 and S2 appreciated. Abdomen: Soft. Nondistended. Normoactive bowel sounds in all 4 quadrants noted. Extremities: BLE and BUE 2+ with ongoing weeping. No cyanosis. No clubbing. Bruises on BLE noted. Neuro: Sedated. Labs and Radiology: Laboratory Results 10/30/19 10/31/19 10/31/19 12:40 17:47 17:47 WBC RBC Hgb Hct MCV MCH MCHC RDW Std Deviation Plt Count MPV Immature Gran % (Auto) Neut % (Auto) Lymph % (Auto) [place] % (Auto) Eos % (Auto) Baso % (Auto) Immature Gran # (Auto) Neut # (Auto) Lymph # (Auto) [place] # (Auto) Eos # (Auto) Baso # (Auto) Segmented Neutrophils Lymphocytes Monocytes Specimen Type Sample Site pH pCO2 pO2 HCO3 Base Excess Maximiliano Test A-a O2 Difference Lactate Blood Gas Modality Vent Mode Spontaneous Rate FiO2 % Tidal Volume PEEP Sodium Potassium Chloride Carbon Dioxide Anion Gap BUN Creatinine Estimated GFR/1.73 m2 BUN/Creatinine Ratio Glucose Calculated Osmolality Calcium Total Bilirubin AST ALT Alkaline Phosphatase Total Protein Albumin Globulin Albumin/Globulin Ratio Ur Eosinophil Smear NONE SEEN Ur Random Creatinine 16.6 Ur Random Sodium 95 Ur Random Urea Nitrogn 478 Blood Type O POSITIVE Antibody Screen NEGATIVE Crossmatch See Detail 10/31/19 11/01/19 11/01/19 23:24 04:00 04:20 WBC 15.61 H RBC 2.93 L Hgb 8.3 L D 8.6 L Hct 25.7 L 26.3 L MCV 89.8 MCH 29.4 MCHC 32.7 L RDW Std Deviation 18.7 H Plt Count 90 L MPV 11.3 H Immature Gran % (Auto) 0.3 Neut % (Auto) 94.1 H Lymph % (Auto) 2.8 L [place] % (Auto) 2.4 Eos % (Auto) 0.4 Baso % (Auto) 0.0 Immature Gran # (Auto) 0.04 Neut # (Auto) 14.69 H Lymph # (Auto) 0.44 L [place] # (Auto) 0.38 Eos # (Auto) 0.06 Baso # (Auto) 0.00 Segmented Neutrophils 95 H Lymphocytes 3 L Monocytes 2 Specimen Type ARTERIAL Sample Site R RADIAL pH 7.52 H pCO2 33 L pO2 123 H HCO3 28.3 H Base Excess 4.3 H Maximiliano Test YES A-a O2 Difference 121.0 Lactate 0.80 Blood Gas Modality VENTILATOR Vent Mode A/C Spontaneous Rate 18 FiO2 % 40.0 Tidal Volume 500 PEEP 5.0 Sodium Potassium Chloride Carbon Dioxide Anion Gap BUN Creatinine Estimated GFR/1.73 m2 BUN/Creatinine Ratio Glucose Calculated Osmolality Calcium Total Bilirubin AST ALT Alkaline Phosphatase Total Protein Albumin Globulin Albumin/Globulin Ratio Ur Eosinophil Smear Ur Random Creatinine Ur Random Sodium Ur Random Urea Nitrogn Blood Type Antibody Screen Crossmatch 11/01/19 11/01/19 04:20 14:42 WBC RBC Hgb 7.9 L Hct 24.3 L MCV MCH MCHC RDW Std Deviation Plt Count MPV Immature Gran % (Auto) Neut % (Auto) Lymph % (Auto) [place] % (Auto) Eos % (Auto) Baso % (Auto) Immature Gran # (Auto) Neut # (Auto) Lymph # (Auto) [place] # (Auto) Eos # (Auto) Baso # (Auto) Segmented Neutrophils Lymphocytes Monocytes Specimen Type Sample Site pH pCO2 pO2 HCO3 Base Excess Maximiliano Test A-a O2 Difference Lactate Blood Gas Modality Vent Mode Spontaneous Rate FiO2 % Tidal Volume PEEP Sodium 154 H Potassium 4.9 Chloride 114 H Carbon Dioxide 25 Anion Gap 15 BUN 111 H Creatinine 1.7 H Estimated GFR/1.73 m2 29 BUN/Creatinine Ratio 65 Glucose 122 H Calculated Osmolality 342 Calcium 8.8 Total Bilirubin 0.65 AST 25 ALT 24 Alkaline Phosphatase 37 Total Protein 5.1 L Albumin 3.2 L Globulin 1.9 Albumin/Globulin Ratio 1.7 Ur Eosinophil Smear Ur Random Creatinine Ur Random Sodium Ur Random Urea Nitrogn Blood Type Antibody Screen Crossmatch Assessment: Acute on chronic hypoxemic and hypercapnic respiratory failure. Severe COPD exacerbation with emphysema, pulmonary fibrosis and mild bibasilar pulmonary edema. Pneumonia. Sputum culture on 10/30/19 grows Pseudomonas Aeruginosa which is sensitive to Cefepime. Kidney failure with electrolyte abnormality. Global encephalopathy. ProBNP elevation. Echocardiogram on 10/18/19 showed moderately enlarged right atrium right ventricle with mildly reduced right ventricular systolic function. Prognosis is guarded to poor. DNR-2 Plan: We checked Ventilation and titrated to the patients needs for clinical p rotocols. We will keep closely monitoring patients clinical response. We titrated Sedation (Diprivan drip) to the patients needs per clinical protocols. We will keep closely monitoring patients clinical response. bronchodilators and IV Solu-Medrol. Antibiotic (Cefepime). Diuresis prn. Appropriate DVT and GI prophylaxis. Evaluation time in minutes: 33 minutes.
[2019-11-02] MEDS: MAXIPIME 2 GM/NS 2 GM/100 ML IVPB IV SCH ×3 (01:07→17:44)
[2019-11-02] MEDS: PROTONIX IV SCH ×2 (01:07→13:02)
[2019-11-02] MEDS: DIPRIVAN 1% 1,000 MG/100 ML BOTTLE IV SCH ×3 (02:06→07:56)
[2019-11-02] MEDS: DUONEB (A & A) INH SCH ×6 (03:16→23:25)
[2019-11-02 04:36] LABS: ALLEN TEST YES; BE 1.2 mmoll (-3.0-3.0); BLOOD TYPE ARTERIAL; HCO3-(ACT) 25.9 mmoll (20.0-26.0); MODALITY VENTILATOR; O2(CT) 12.1 mL/dL (15.0-23.0); O2HB 96.6 % (95.0-99.0); PCO2(98.6) 35 mmHg (35-45); PO2(98.6) 105 mmHg (60-100); SAMPLE BLOOD; SRATE 18 BPM; THB 8.8 g/dL (11.5-17.4); TVOL 500 mL; pH(98.6) 7.46 (7.35-7.45)
[2019-11-02 05:11] LABS: EOS# 0.07 X1000 (0.0-0.7); EOS% 0.4 % (0.0-10.0); HEMATOCRIT 25.9 % (37.0-47.0); HEMOGLOBIN 8.3 g/dL (12.0-16.0); IMM GRAN# 0.04 X1000 (0.0-0.04); IMM GRAN% 0.2 % (0.0-0.5); LYMPH# 0.39 X1000 (1.2-3.4); LYMPH% 2.3 % (20.5-51.1); MCV 90.6 FL (81-99); MONO# 0.32 X1000 (0.11-0.59); MONO% 1.9 % (1.7-9.3); MPV 11.6 FL (7.4-10.4); NEUT% 95.2 % (42.2-75.2); PLT 80 X1000 (130-400); RBC 2.86 XMIL (4.2-5.4); RDW 17.7 % (11.5-14.5); WBC 16.62 X1000 (4.8-10.8)
[2019-11-02 05:38] LABS: ALB/GLOB RATIO 1.7; ALBUMIN 3.2 g/dL (3.5-5.0); CALCIUM 8.7 mg/dL (8.8-10.2); CREATININE 1.7 mg/dL (0.5-0.9); POTASSIUM 4.2 mmol/L (3.5-5.1); TOTAL BILIRUBIN 0.46 mg/dL (0.20-1.00); TOTAL PROTEIN 5.1 g/dL (6.3-8.3)
[2019-11-02] MEDS: D5W 1,000 ML IV SCH (05:39)
--- NOTE | 2019-11-02 07:03 | Diag Imaging Result Doc PS360 ---
EXAM: CHEST-PORTABLE HISTORY: [facility] Ventilation TECHNIQUE: Single view COMPARISON: 10/31/2019 FINDINGS: No change in the endotracheal tube or in the left-sided PICC line. The nasogastric tube has been removed. The lungs are well expanded. The heart is borderline mildly prominent. Central vascular distention. Infiltrates remain in the lower left lung. IMPRESSION: Stable exam Electronically signed by Casey Bustos 11/02/2019 7:01 AM
[2019-11-02] MEDS: ALBUMIN 25% IV SCH ×2 (07:52→13:32)
[2019-11-02] MEDS: M.V.I.-12 10 ML, FOLIC ACID 1 MG, MAGNESIUM SULFATE 1 GM, THIAMINE 100 MG in NS 1,000 ML IV SCH ×2 (07:52→13:32)
[2019-11-02] MEDS: SOLU-MEDROL IV SCH ×2 (07:53→13:32)
[2019-11-02] MEDS ORDERED: LASIX IV ONE (10:19)
[2019-11-02 10:30] LABS: ALLEN TEST YES; BE -0.9 mmoll (-3.0-3.0); BLOOD TYPE ARTERIAL; HCO3-(ACT) 24.2 mmoll (20.0-26.0); O2(CT) 11.7 mL/dL (15.0-23.0); PO2(98.6) 80 mmHg (60-100); SAMPLE BLOOD; SAO2 96.8 % (95.0-100.0); THB 8.8 g/dL (11.5-17.4); pH(98.6) 7.29 (7.35-7.45)
[2019-11-02 10:32] LABS: MODALITY VENTILATOR; PCO2(98.6) 54 mmHg (35-45)
--- NOTE | 2019-11-02 11:31 | GASTROENTEROLOGY PROGRESS NOTE ---
DATE: 11/02/2019 SUBJECTIVE: Ms. Talavera is a 74-year-old female resting in bed. The patient has been extubated and on a weaning trial with CPAP machine. The patient's eyes are open, but she is unresponsive. OBJECTIVE: Vital Signs: Temperature 97 degrees, pulse is 67, respirations 18, blood pressure 140/63, oxygen saturation is 92% on mechanical ventilator with CPAP machine. General: The patient is unresponsive. HEENT: Pale conjunctivae. No icterus. PERRL. Neck: Supple. Lungs: Wheezing heard in the anterior jordan. Cardiovascular: Regular rate and rhythm. Abdomen: Mildly firm, mildly distended. Active bowel sounds heard in all 4 quadrants. Extremities: No clubbing, no cyanosis. Generalized edema. Pedal pulses 2+ present bilaterally. Neurologic: She is on a mechanical ventilator, unresponsive. LABS: WBCs of 16.62, RBC is 2.86, hemoglobin is 8.3, hematocrit is 25.9, platelet count is 80,000. Sodium 153, potassium 4.2, chloride 115, carbon dioxide 24, anion gap 14, BUN 103, creatinine is 1.7, glucose 156, calcium is 8.7, total bilirubin 0.46, AST 18, ALT 19, alkaline phosphatase is 39, albumin is 3.2. IMAGING: Chest x-ray today showed stable chest, stable exam. IMPRESSION AND PLAN: 1. Chronic obstructive pulmonary disease. 2. Gastrointestinal bleed. 3. Anemia. 4. Duodenal ulcers. 5. Gastric ulcers. PLAN: Ms. Talavera is a 74-year-old female with a history of hypertensive heart disease and COPD. GI is following her for a GI bleed. The patient's hemoglobin and hematocrit have trended upward. They are 8.3 and 25.9 today. The patient is on a weaning trial with a CPAP machine on. Once the patient is extubated, H & H is stable and if she is conscious , the patient can start clear liquid diet. The patient is currently receiving her MVI bag at 150 mL per hour. She is receiving albumin 25%, Protonix IV twice a day, antibiotic Maxipen 200 mL. We will continue to monitor patient's hemoglobin and hematocrit and follow the plan of care per PCP. This plan was discussed with Dr. Mccullough. Please call us for any further questions or concerns. Dictated by HEDY Baeza for Trell Mccullough MD CHERYL
[2019-11-02] MEDS: NS 500 ML IV SCH (13:03)
--- NOTE | 2019-11-02 13:13 | PROGRESS NOTE ---
DATE: 11/02/2019 SUBJECTIVE: This morning Ms. Talavera is going through spontaneous breathing trial. Seems to be breathing about 30 respirations per minute on the ventilator. Her eyes were open, but was not following any commands. She continues to constantly be moving the head in different directions. OBJECTIVE: Vital signs: Blood pressure is 140/63, pulse over 67, and respirations 33. The patient is saturating 92% on mechanical ventilation. General: Ms. Talavera is a 74-year-old elderly female. She is under the ventilator. HEENT: Mucosa is pink and moist. Anicteric. Acyanotic. Neck: Supple. Chest: Air entry is bilaterally reduced. There is diffuse wheezing. Cardiovascular: Slightly tachycardic but regular. GI: Abdomen is soft. Globally distended. There is an umbilical hernia noted. Bowel sounds present but hypoactive. Extremities: 2+ pedal edema. There is also edema on the lateral aspect of the thighs and the lateral abdomen. JAVA PROGRAMMER ANALYST: Patient is verbally nonresponsive. Eyes: Open. Pupils are reactive, but she does not follow any command. She will grimace her face, and withdrawal extremities from painful stimulation. LABORATORY DATA: WBC is up to 16.62, hemoglobin 8.3, and platelet count of 80,000. Chemistry is also reviewed. Sodium is 153, chloride 115, and creatinine is 1.7. DIAGNOSTIC: Chest x-ray this morning shows lungs expanded borderline mild. Heart is borderline prominent. Central vascular distention. There is infiltrate that remains in the left lower lung. MEDICATIONS: Patient's medications have all been reviewed. Sputum culture from the 18 shows Pseudomonas aeruginosa. Blood cultures have been negative. ASSESSMENT: 1. Acute on chronic hypoxemic respiratory failure. Patient is day 4 under the ventilator. She is currently going through SBT spontaneous breathing trial. 2. Left lower lobe Pseudomonas aeruginosa pneumonia. Patient is on cefepime. Today is day 3 for 10 to 14 days treatment. 3. Severe COPD with exacerbation on admission. Patient continues to be wheezing. We will continue with the steroids bronchodilation therapy, antimicrobial as well. 4. Massive GI bleed. During the hospital course, hemoglobin dropped to 5.6. The patient is status post 3 PRBC transfusion and 1 platelet transfusion. Hemoglobin has improved to 8.3, and platelet count is at 80,000. 5. Multiple gastroduodenal ulcers with bleeding duodenal ulcer. Patient is status post EGD with endoscopic treatment. 6. Fluid overload. The patient continues to be remarkably positive balance. She is wheezing. Chest x-ray suggests central vein distention. We are going to give her 80 mg of Lasix this morning. 7. Nonoliguric acute kidney injury. Stable. 8. Hypernatremia. Patient is on low infusion of D5 to correct the hypertonicity In general, I think Ms. Talavera continues to be critically sick. She is clearly altered, even off the propofol. She does not follow any command, and she does not seem to be aware. She is going through an SBT, and we will wait for Pulmonary for their recommendations. I will also be pending the family to come and visit her so we can discuss her findings and her care going forward. Ms. Talavera's current prognosis seems to be guarded if not extremely poor. She is currently DNR level 2. cc: Saud Frazier MD MTDD
[2019-11-02] MEDS ORDERED: LASIX ONE (13:14)
[2019-11-02 13:29] LABS: HEMATOCRIT 25.1 % (37.0-47.0); HEMOGLOBIN 7.9 g/dL (12.0-16.0)
--- NOTE | 2019-11-02 18:55 | PROVIDER PROGRESS NOTE ---
Progress Note Dr. Denis Progress Note/Pulmonary and or critical care Subjective: The patient was successfully extubated at around 11am. She is on CAM 50% with SaO2 in high 90s. She is mildly tachycardiac and tachypneic at this time. Her eyes are open, but she is unresponsive to any verbal stimuli. She does have good cough effort. No family at the bedside. Input is appreciated from Dr. Frazier and other teams on the case. Objective: Vital Signs: T 97.1 (low fever in last 24 hours), NH 109, RR 29, BP 133/58 and SaO2 96% on CAM 50%. I/O: -596 ml Physical Examination: General: Lying in bed with eyes open, but not chasing visitors. HEENT: Normocephalic. Trachea midline. Chest: Auscultation reveals diminished breathing sounds in the right side of the lung jordan. CVS: Regular rate and rhythm with S1 and S2 appreciated. Abdomen: Soft. Nondistended. Normoactive bowel sounds in all 4 quadrants noted. Extremities: BLE and BUE 2+ with ongoing weeping. No cyanosis. No clubbing. Bruises on BLE noted. Neuro: Awake. Unresponsive to verbal stimuli. Not answering questions or following commands. Labs and Radiology: Laboratory Results 11/02/19 11/02/19 11/02/19 04:25 04:45 04:45 WBC 16.62 H RBC 2.86 L Hgb 8.3 L Hct 25.9 L MCV 90.6 MCH 29.0 MCHC 32.0 L RDW Std Deviation 17.7 H Plt Count 80 L MPV 11.6 H Immature Gran % (Auto) 0.2 Neut % (Auto) 95.2 H Lymph % (Auto) 2.3 L Mccone % (Auto) 1.9 Eos % (Auto) 0.4 Baso % (Auto) 0.0 Immature Gran # (Auto) 0.04 Neut # (Auto) 15.80 H Lymph # (Auto) 0.39 L Mccone # (Auto) 0.32 Eos # (Auto) 0.07 Baso # (Auto) 0.00 Specimen Type ARTERIAL Sample Site R RADIAL pH 7.46 H pCO2 35 pO2 105 H HCO3 25.9 Base Excess 1.2 Oxyhemoglobin 96.6 ABG O2 Sat (Calculated) 12.1 L ABG O2 Saturation 99.0 ABG Carboxyhemoglobin 1.40 ABG Methemoglobin 1.0 Maximiliano Test YES A-a O2 Difference 136.0 Total Hemoglobin 8.8 L Lactate 1.00 Blood Gas Modality VENTILATOR Vent Mode Spontaneous Rate 18 FiO2 % 40.0 Tidal Volume 500 PEEP 5.0 Pressure Support CPAP Sodium 153 H Potassium 4.2 Chloride 115 H Carbon Dioxide 24 L Anion Gap 14 BUN 103 H Creatinine 1.7 H Estimated GFR/1.73 m2 29 BUN/Creatinine Ratio 61 Glucose 156 H Calculated Osmolality 339 Calcium 8.7 L Total Bilirubin 0.46 AST 18 ALT 19 Alkaline Phosphatase 39 Azs-E-Ploqivmfblo Pept Total Protein 5.1 L Albumin 3.2 L Globulin 1.9 Albumin/Globulin Ratio 1.7 11/02/19 11/02/19 11/02/19 04:45 10:20 13:18 WBC RBC Hgb 7.9 L Hct 25.1 L MCV MCH MCHC RDW Std Deviation Plt Count MPV Immature Gran % (Auto) Neut % (Auto) Lymph % (Auto) Mccone % (Auto) Eos % (Auto) Baso % (Auto) Immature Gran # (Auto) Neut # (Auto) Lymph # (Auto) Mccone # (Auto) Eos # (Auto) Baso # (Auto) Specimen Type ARTERIAL Sample Site R RADIAL pH 7.29 L pCO2 54 H* pO2 80 HCO3 24.2 Base Excess -0.9 Oxyhemoglobin 94.0 L ABG O2 Sat (Calculated) 11.7 L ABG O2 Saturation 96.8 ABG Carboxyhemoglobin 1.90 ABG Methemoglobin 1.0 Maximiliano Test YES A-a O2 Difference 138.0 Total Hemoglobin 8.8 L Lactate 0.70 Blood Gas Modality VENTILATOR Vent Mode CPAP Spontaneous Rate FiO2 % 40.0 Tidal Volume PEEP Pressure Support 5.00 CPAP 5.0 Sodium Potassium Chloride Carbon Dioxide Anion Gap BUN Creatinine Estimated GFR/1.73 m2 BUN/Creatinine Ratio Glucose Calculated Osmolality Calcium Total Bilirubin AST ALT Alkaline Phosphatase Grl-H-Msdilwckuad Pept 2810 H Total Protein Albumin Globulin Albumin/Globulin Ratio Assessment: Acute on chronic hypoxemic and hypercapnic respiratory failure. Intubated on 10/30/19 for airway protection. Extubated today. Severe COPD exacerbation with emphysema, pulmonary fibrosis and mild bibasilar pulmonary edema. Pneumonia. Sputum culture on 10/30/19 grows Pseudomonas Aeruginosa which is sensitive to Cefepime. Kidney failure with electrolyte abnormality. Global encephalopathy. ProBNP elevation. Echocardiogram on 10/18/19 showed moderately enlarged right atrium right ventricle with mildly reduced right ventricular systolic function. Prognosis is guarded to poor. DNR-2 Plan: Supplemental oxygen as needed with BiPAP as backup will titrate and observe response and Keep in ICU observation. Bronchodilators and IV Solu-Medrol. Antibiotic (Cefepime). Diuresis as tolerated. Appropriate DVT and GI prophylaxis. No benzo. We keep Haldol for anxiety as needed. Continue NPO. Evaluation time in minutes: 31 minutes.
--- NOTE | 2019-11-02 19:28 | NEUROLOGY PROGRESS NOTE ---
DATE: 11/02/2019 SUBJECTIVE/OBJECTIVE: Ms. Talavera is supine, breathing spontaneously, turning her head left to right, and sometimes showing conjugate gaze left to right and right to left spontaneously. She did not respond to me at the bedside with name calling and gentle shoulder rub. She did close her eyes and make small grimace with symmetric facial appearance. Neck is supple. Limb tone is symmetric. ASSESSMENT/PLAN: I do not have any new suggestions from a Neurology standpoint. I discussed the global encephalopathy features and confirmed history with granddaughter at the bedside that there is a baseline cognitive impairment. Thanks for asking Neurology to see Ms. Talavera. cc: Viki Cobian III, MD
[2019-11-02 21:15] LABS: HEMATOCRIT 25.5 % (37.0-47.0); HEMOGLOBIN 7.8 g/dL (12.0-16.0)
[2019-11-03] MEDS: PROTONIX IV SCH ×2 (01:06→12:51)
[2019-11-03] MEDS: MAXIPIME 2 GM/NS 2 GM/100 ML IVPB IV SCH (01:06)
[2019-11-03] MEDS: D5W 1,000 ML IV SCH (03:35)
[2019-11-03] MEDS: DUONEB (A & A) INH SCH ×6 (03:50→22:34)
[2019-11-03 04:49] LABS: ALLEN TEST YES; BE -3.9 mmoll (-3.0-3.0); BLOOD TYPE ARTERIAL; HCO3-(ACT) 21.9 mmoll (20.0-26.0); METHB 0.9 % (0.0-1.5); O2(CT) 9.1 mL/dL (15.0-23.0); O2HB 95.8 % (95.0-99.0); PO2(98.6) 98 mmHg (60-100); SAMPLE BLOOD; SRATE 12 BPM; THB 6.6 g/dL (11.5-17.4); pH(98.6) 7.26 (7.35-7.45)
[2019-11-03 04:50] LABS: MODALITY BI PAP; PCO2(98.6) 51 mmHg (35-45)
[2019-11-03 05:53] LABS: HEMATOCRIT 27.4 % (37.0-47.0); HEMOGLOBIN 8.3 g/dL (12.0-16.0); IMM GRAN# 0.04 X1000 (0.0-0.04); IMM GRAN% 0.2 % (0.0-0.5); LYMPH# 0.24 X1000 (1.2-3.4); LYMPH% 1.5 % (20.5-51.1); MCH 28.8 PG (27-31); MCHC 30.3 g/dL (33-37); MCV 95.1 FL (81-99); MONO# 0.22 X1000 (0.11-0.59); MONO% 1.3 % (1.7-9.3); MPV 12.1 FL (7.4-10.4); NEUT# 16.02 X1000 (1.4-6.5); PLT 77 X1000 (130-400); RBC 2.88 XMIL (4.2-5.4); RDW 17.6 % (11.5-14.5); WBC 16.52 X1000 (4.8-10.8)
[2019-11-03 06:05] LABS: BANDS 4 % (0-1); LYMPHS 1 % (21-51); MONO 2 % (1-9); SEGS 93 % (42-75)
[2019-11-03 06:18] LABS: ALB/GLOB RATIO 1.4; ALBUMIN 3.3 g/dL (3.5-5.0); CALCIUM 9.1 mg/dL (8.8-10.2); CREATININE 2.4 mg/dL (0.5-0.9); POTASSIUM 4.7 mmol/L (3.5-5.1); TOTAL BILIRUBIN 0.78 mg/dL (0.20-1.00); TOTAL PROTEIN 5.7 g/dL (6.3-8.3)
[2019-11-03] MEDS ORDERED: MERREM 1 GM in NS 50 ML IV SCH (06:30)
--- NOTE | 2019-11-03 07:36 | Diag Imaging Result Doc PS360 ---
EXAM: CHEST-PORTABLE HISTORY: dyspnea TECHNIQUE: Single view COMPARISON: 11/02/2019 FINDINGS: No change in the left-sided PICC line. The endotracheal tube has been removed. There are infiltrates and atelectasis in the mid and lower left lung and in the right base. Heart is mildly prominent. Small left pleural effusion. IMPRESSION: No interval improvement Electronically signed by Casey Bustos 11/03/2019 7:34 AM
[2019-11-03] MEDS ORDERED: LEVAQUIN 500 MG/D5W 500 MG/100 ML IVPB IV SCH (08:00)
[2019-11-03] MEDS: MERREM 500 MG in NS 50 ML IV SCH ×2 (08:11→15:04)
[2019-11-03] MEDS: LEVAQUIN 250 MG/D5W 250 MG/50 ML IVPB IV SCH (08:11)
[2019-11-03] MEDS: SOLU-MEDROL IV SCH (08:11)
[2019-11-03] MEDS: M.V.I.-12 10 ML, FOLIC ACID 1 MG, MAGNESIUM SULFATE 1 GM, THIAMINE 100 MG in NS 1,000 ML IV SCH (08:12)
--- NOTE | 2019-11-03 09:39 | PROGRESS NOTE ---
DATE: 11/03/2019 SUBJECTIVE: I have seen and examined Ms. Talavera today. No family member at the bedside at the time of the encounter. Per the nursing staff, the night was uneventful except that she did not make a lot of urine. OBJECTIVE: Vital signs: Blood pressure is 147/70, pulse of 97, respirations 25, temperature 97.9 degrees. The patient is saturating 95% on BiPAP. General: Ms. Talavera is a 74-year-old elderly female. She is in bed. She is on a Venturi mask. HEENT: Mucosa is pink and moist. Anicteric. Acyanotic. Neck: Supple. There is positive JVD. Chest: Air entry is bilaterally reduced. Some distant wheezing and crackles in the posterior lung jordan. Cardiovascular: Regular rate and rhythm. No murmurs, no rubs, no gallops. GI: Abdomen soft, is globally distended and the patient grimaces her face to the palpation of the abdomen in all quadrants. This seems to be peritoneal reaction. Bowel sounds are present. There is an umbilical hernia. Extremities: About 2+ pedal edema. There is also edema on the lateral aspect of the abdominal wall. FAMILY COURT JUSTICE: Patient is verbally nonresponsive. She will open the eyes to her name. She will also withdraw her extremities to painful stimulations. Pupils are equal and they are reactive. The patient will not follow any commands. LABORATORY DATA: WBC is 16.52, hemoglobin is 8.3, platelet count of 77,000. ABG, pH is 7.26, pCO2 is 51, PO2 of 98. Sodium is 140, chloride is 112, creatinine is 2.4, BUN is 108. A chest x- ray is yet to be done this morning. The patient I's and O's: Urine output was 617 24 hours. Patient is currently positive balance of 29,452. I am told her CVP reading was 19 cm of water. CURRENT MEDICATIONS: Have all been reviewed. Anti antimicrobials have changed from cefepime this morning meropenem since patient continues to have elevated white cell count. ASSESSMENT: 1. Acute on chronic hypoxemic respiratory failure. Patient was intubated, spent about 4 days under the ventilator, became successfully extubated yesterday and she is currently on the on Venturi mask. She seems to be saturating well. 2. Left lower lobe Pseudomonas aeruginosa pneumonia. Patient was on cefepime for 3 days. However, white cell count continues to be elevated. We have changed the cefepime to renally dosed meropenem and also added Levaquin. 3. Severe chronic obstructive pulmonary disease with moderate to severe exacerbation on admission. We will continue with standard of therapy. 4. Massive gastrointestinal bleed. The patient hemoglobin dropped to 5.6 during the hospital course. She is status post 3 packed red blood cells and 1 platelet transfusion. Hemoglobin and hematocrit is stable. 5. Multiple gastroduodenal ulcers with bleeding duodenal ulcer. Patient is status post esophagogastroduodenoscopy with endoscopic treatment of the bleeding ulcer and she is on Protonix. 6. Fluid overload. Ms. Talavera got 80 mg of Lasix yesterday. Unfortunately, her urine output continues to be declining. Creatinine is going up. Central venous pressure is also I am told elevated at 19, which confirms the elevation in the central pressures. If the patient is not responsive to the diuretic therapy, I think she will need to be evaluated for hemofiltration. We have consulted Nephrology. 7. Nonoliguric acute kidney injury. The patient's urine output has actually decreased immensely overnight. Creatinine has also gotten worse. BUN is remarkably elevated. We have consulted Nephrology. I will also do the urine studies. 8. Abdominal pain with peritoneal reaction unsure if there is any acute abdomen. We are going to do a CT scan of the abdomen and pelvis without contrast because of her kidney to give us a better idea. 9. Hypernatremia. Patient is on a very low infusion of D5 to correct her hypertonicity. 10. Altered mental status. The patient continues to be verbally nonresponsive. She is lethargic to stuporous state of mind. We are going to continue to monitor this. I think her current mental status is a combination of her alcohol use in the past, possible cognitive decline and all her ongoing acute medical issues. Time will tell if she will recover some. DISPOSITION: In general yesterday, I spoke extensively with the two sons and two [id number] and another female family friend on Ms. Talavera. Their ICU nurse was also present in the discussion. We went over the critical care nature of Ms. Cardona current condition and the fact that her prognosis continues to be remarkably poor. The fact that she is going into a multiorgan failure. The family do understand the gravity of her current medical status. They however, still recommend that if she needs to be intubated again, they are okay for her to be reintubated, they are okay for her to get shock. The only thing they do not want in terms of resuscitation is chest compression. CRITICAL TIME SPENT: 1 hour. cc: Saud Frazier MD
--- NOTE | 2019-11-03 11:30 | Diag Imaging Result Doc PS360 ---
EXAM: CT HEAD W/O CONTRAST HISTORY: encephalopathy TECHNIQUE: CT head without contrast COMPARISON: 10/18/2019 FINDINGS: No parenchymal hemorrhage. No epidural or subdural hematoma. No subarachnoid hemorrhage. There are prominent microvascular ischemic changes. Old right cerebellar infarct. No mass identified on this noncontrasted exam. No hydrocephalus. The mastoid sinuses remain opacified. There is fluid in the inner ears. Small air-fluid levels in the right maxillary and left sphenoid sinuses.. IMPRESSION: 1.No hemorrhage 2.Prominent chronic microvascular ischemic changes within old right cerebellar infarct 3.Sinusitis This exam was performed using automated exposure control, adjustment of mA or kV according to patient size, and/or use of iterative reconstruction technique. Electronically signed by Casey Bustos 11/03/2019 11:27 AM
--- NOTE | 2019-11-03 11:37 | Diag Imaging Result Doc PS360 ---
EXAM: CT ABDOMEN/PELVIS W/O CONTRAST HISTORY: peritonitis TECHNIQUE: CT abdomen and pelvis without intravenous contrast COMPARISON: None. FINDINGS: There are tplza-vo-klhlnczp sized bilateral pleural effusions measuring just under 3.5 cm posteriorly and inferiorly in the midline. Left lower lobe infiltrates with by basilar atelectasis. There is a small amount of fluid about the liver and spleen extending into each paracolic gutter with a moderate amount of fluid in the pelvis. There is body wall edema. There is a small amount of free air in the anterior abdomen. No focal hepatic normality identified on this noncontrasted exam. No calcified gallstones. No splenomegaly. No inflammation about the pancreas. Normal adrenal glands. No renal stones. No hydronephrosis. Prominent atherosclerosis. No aortic aneurysm. No bowel obstruction. There is a Rogers catheter in the urinary bladder. The uterus is small. IMPRESSION: 1.Free air in the anterior abdomen 2.Left lower lobe pneumonia with by basilar atelectasis and small pleural effusions 3.Small amount of abdominal and pelvic ascites with body wall edema 4.No bowel obstruction. There is oral contrast throughout the colon. This report was discussed with Chelly the patient's nurse in the intensive care unit on 11/03/2019 at 11:35 AM and was readback. This exam was performed using automated exposure control, adjustment of mA or kV according to patient size, and/or use of iterative reconstruction technique. Electronically signed by Casey Bustos 11/03/2019 11:35 AM
[2019-11-03] MEDS: NS 500 ML IV SCH (12:51)
[2019-11-03] MEDS: SODIUM CHLORIDE 0.9% INJ SCH (12:51)
[2019-11-03 14:08] LABS: HEMATOCRIT 27.1 % (37.0-47.0); HEMOGLOBIN 8.3 g/dL (12.0-16.0)
--- NOTE | 2019-11-03 19:08 | PROVIDER PROGRESS NOTE ---
Progress Note Dr. Denis Progress Note/Pulmonary and or critical care Subjective: The patient is lying in bed with eyes closed. She is on VM 40% and tolerates well. She appears lethargic. She remains unresponsive to any verbal or tactile stimuli. No family at the bedside. Input is appreciated from Dr. Frazier and other teams on the case. Objective: Vital Signs: T 97.3 (No fever in last 24 hours), MI 94, RR 21, BP 156/76 and SaO2 97% on CAM 40%. I/O: +2193 ml Physical Examination: General: Lying in bed with eyes closed. No acute distress noted. HEENT: Normocephalic. Trachea midline. Chest: Auscultation reveals diminished breathing sounds in the right side of the lung jordan. CVS: Regular rate and rhythm with S1 and S2 appreciated. Abdomen: Soft. Nondistended. Normoactive bowel sounds in all 4 quadrants noted. Extremities: BLE and BUE 2+ with ongoing weeping. No cyanosis. No clubbing. Bruises on BLE noted. Neuro: Unresponsive to verbal stimuli. Not answering questions or following commands. Labs and Radiology: Laboratory Results 11/02/19 11/03/19 11/03/19 21:04 04:39 05:06 WBC 16.52 H RBC 2.88 L Hgb 7.8 L 8.3 L Hct 25.5 L 27.4 L MCV 95.1 MCH 28.8 MCHC 30.3 L RDW Std Deviation 17.6 H Plt Count 77 L MPV 12.1 H Immature Gran % (Auto) 0.2 Neut % (Auto) 97.0 H Lymph % (Auto) 1.5 L Davison % (Auto) 1.3 L Eos % (Auto) 0.0 Baso % (Auto) 0.0 Immature Gran # (Auto) 0.04 Neut # (Auto) 16.02 H Lymph # (Auto) 0.24 L Davison # (Auto) 0.22 Eos # (Auto) 0.00 Baso # (Auto) 0.00 Segmented Neutrophils 93 H Band Neutrophils 4 H Lymphocytes 1 L Monocytes 2 Macrocytosis OCCASIONAL Specimen Type ARTERIAL Sample Site R RADIAL pH 7.26 L pCO2 51 H* pO2 98 HCO3 21.9 Base Excess -3.9 L Oxyhemoglobin 95.8 ABG O2 Sat (Calculated) 9.1 L ABG O2 Saturation 99.0 ABG Carboxyhemoglobin 2.30 ABG Methemoglobin 0.9 Maximiliano Test YES A-a O2 Difference 123.0 Total Hemoglobin 6.6 L Lactate 0.70 Blood Gas Modality BI PAP Spontaneous Rate 12 FiO2 % 40.0 Inspiratory BiPAP 12.0 Expiratory BiPAP 8.0 Sodium Potassium Chloride Carbon Dioxide Anion Gap BUN Creatinine Estimated GFR/1.73 m2 BUN/Creatinine Ratio Glucose Calculated Osmolality Calcium Total Bilirubin AST ALT Alkaline Phosphatase Total Protein Albumin Globulin Albumin/Globulin Ratio 11/03/19 11/03/19 05:06 13:56 WBC RBC Hgb 8.3 L Hct 27.1 L MCV MCH MCHC RDW Std Deviation Plt Count MPV Immature Gran % (Auto) Neut % (Auto) Lymph % (Auto) Davison % (Auto) Eos % (Auto) Baso % (Auto) Immature Gran # (Auto) Neut # (Auto) Lymph # (Auto) Davison # (Auto) Eos # (Auto) Baso # (Auto) Segmented Neutrophils Band Neutrophils Lymphocytes Monocytes Macrocytosis Specimen Type Sample Site pH pCO2 pO2 HCO3 Base Excess Oxyhemoglobin ABG O2 Sat (Calculated) ABG O2 Saturation ABG Carboxyhemoglobin ABG Methemoglobin Maximiliano Test A-a O2 Difference Total Hemoglobin Lactate Blood Gas Modality Spontaneous Rate FiO2 % Inspiratory BiPAP Expiratory BiPAP Sodium 150 H Potassium 4.7 Chloride 112 H Carbon Dioxide 22 L Anion Gap 16 BUN 108 H Creatinine 2.4 H Estimated GFR/1.73 m2 20 BUN/Creatinine Ratio 45 Glucose 101 Calculated Osmolality 332 Calcium 9.1 Total Bilirubin 0.78 AST 21 ALT 21 Alkaline Phosphatase 53 Total Protein 5.7 L Albumin 3.3 L Globulin 2.4 Albumin/Globulin Ratio 1.4 Assessment: Acute on chronic hypoxemic and hypercapnic respiratory failure. Intubated on 10/30/19 for airway protection. Extubated on 11/02/19. Acidemia with AG metabolic acidosis, mild metabolic alkalosis and respiratory acidosis. Severe COPD exacerbation with emphysema, pulmonary fibrosis and mild bibasilar pulmonary edema. Improved. No more wheezing noted. Pneumonia. Sputum culture on 10/30/19 grows Pseudomonas Aeruginosa which is sensitive to Cefepime. Kidney failure with electrolyte abnormality. Acute metabolic encephalopathy. ProBNP elevation. Echocardiogram on 10/18/19 showed moderately enlarged right atrium right ventricle with mildly reduced right ventricular systolic function. Prognosis is guarded to poor. Patients mental status is the biggest hindrance f or her hospital recovery. DNR-2 Plan: Supplemental oxygen as needed with BiPAP as backup. We will titrate supplemental oxygen to patients needs per clinical protocol. We keep monitoring patients clinical response closely. No benzo. We keep Haldol for anxiety as needed. We watch her mental status closely. Hopefully she will not require intubation again. Staff already talked with family about palliative care/comfort care. Bronchodilators and IV Solu-Medrol. Antibiotic (Cefepime). Diuresis as tolerated. Appropriate DVT and GI prophylaxis. Continue NPO. Evaluation time in minutes: 32 minutes.
--- NOTE | 2019-11-03 20:21 | GENERAL SURGERY CONSULTATION ---
DATE: 11/03/2019 REASON CONSULTATION: Pneumoperitoneum. HPI: This 74-year-old female who has a very long protracted ICU course complicated by apparently recent suicide attempt. She has alcoholism. She had numerous ulcers. She had a large GI bleed. She has respiratory failure, was extubated and been on BiPAP. She has had worsening renal dysfunction progressing towards end-stage and has been not responsive for the last few days. Dr. Frazier noted change in abdominal exam this morning got a CT scan that showed free air and free fluid in the abdomen concerning for perforated ulcer in the setting of her known duodenal gastric ulcers. MEDICAL HISTORY: Is as noted in her HPI. PAST SURGICAL HISTORY: See some what appear to be laparoscopic incisions on her abdomen but it is unclear what these were. SOCIAL HISTORY: She does have a history of alcohol and I believe smoking. FAMILY HISTORY: Was reviewed per the record. REVIEW OF SYSTEMS: Not obtainable. PHYSICAL EXAM: She is afebrile, heart rates in the 90s, blood pressure 153/67, O2 saturation low 90s on a Ventimask. General: She is nonresponsive. Cardiovascular: Normal rate. Pulmonary: She does have increased work of breathing noted. Abdomen: Obese. It is rigid and firm and distended. Integument: Otherwise warm and dry. Peripheral vascular: Bilateral lower extremity edema. Psychiatric: She is nonresponsive. Neurologic: She has no movement in any extremity. LABS: White count is up to 16, hematocrit 27. Her ABG shows worsening acidosis with a pH 7.26, CO2 of 51, base deficit 3.9. Creatinine is up to 2.4, sodium is 150, her albumin is 3.3. I have reviewed her CT scan, it shows free air, free fluid in the abdomen. ASSESSMENT AND PLAN: This is a 74-year-old female with perforated viscus most likely duodenal ulcer given the fact that she has had a major gastrointestinal bleed from this during this admission. The family has made her do not resuscitate already and are discussing and sounds as they do not want to proceed with surgery. I discussed the near inevitable likelihood of mortality related with an operation, possibility that this problem is not correctable, the inevitable likelihood that she would remain on the ventilator for the rest of her life and would require dialysis after surgery. They seem very reasonable, seemed to understand all this and discussed with the family about goals of care. A very grim prognosis for this lady with or without surgery. We did discuss the natural history of perforated ulcers without an operation. In the meantime, would continue current care and as of now we will not plan for surgical intervention. cc: Kaela Parker MD MTDD
[2019-11-04] MEDS: MERREM 500 MG in NS 50 ML IV SCH ×2 (01:18→07:27)
[2019-11-04] MEDS: PROTONIX IV SCH ×2 (01:23→13:18)
[2019-11-04] MEDS: DUONEB (A & A) INH SCH ×7 (03:53→23:02)
[2019-11-04 04:49] LABS: ALLEN TEST YES; BE -7.5 mmoll (-3.0-3.0); BLOOD TYPE ARTERIAL; METHB 0.9 % (0.0-1.5); MODALITY BI PAP; O2(CT) 11.5 mL/dL (15.0-23.0); O2HB 93.9 % (95.0-99.0); PCO2(98.6) 44 mmHg (35-45); PO2(98.6) 72 mmHg (60-100); SAMPLE BLOOD; SAO2 96.9 % (95.0-100.0); SRATE 12 BPM; THB 8.6 g/dL (11.5-17.4); pH(98.6) 7.25 (7.35-7.45)
[2019-11-04 05:26] LABS: URINE SOURCE CATH
[2019-11-04 05:59] LABS: UR CREAT RANDOM 86.1 mg/dL (11-20)
[2019-11-04 06:08] LABS: HEMOGLOBIN 8.4 g/dL (12.0-16.0); IMM GRAN# 0.21 X1000 (0.0-0.04); IMM GRAN% 1.3 % (0.0-0.5); LYMPH# 0.19 X1000 (1.2-3.4); LYMPH% 1.2 % (20.5-51.1); MCH 29.4 PG (27-31); MCHC 31.1 g/dL (33-37); MCV 94.4 FL (81-99); MONO% 1.3 % (1.7-9.3); MPV 12.4 FL (7.4-10.4); NEUT# 15.27 X1000 (1.4-6.5); NEUT% 96.2 % (42.2-75.2); PLT 91 X1000 (130-400); RBC 2.86 XMIL (4.2-5.4); RDW 17.4 % (11.5-14.5); WBC 15.87 X1000 (4.8-10.8)
[2019-11-04 06:08] LABS: BILIRUBIN URINE NEGATIVE (NEGATIVE); BLOOD URINE LARGE (NEGATIVE); COLOR ORANGE; GLUCOSE URINE NEGATIVE (NEGATIVE); KETONE URINE 10 mg/dL (NEGATIVE); LEUKOCYTES URINE LARGE (NEGATIVE); NITRITE URINE NEGATIVE (NEGATIVE); PROTEIN URINE 300 mg/dL (NEGATIVE); SP GRAVITY URINE 1.026; TURBIDITY URINE TURBID (CLEAR); UR EPITHELIAL CELLS <10 /HPF (<10); URINE BACTERIA NEGATIVE /HPF; URINE RBC TNTC /HPF (<10); URINE WBC TNTC /HPF (<10); UROBILINOGEN URINE NORMAL (NORMAL)
[2019-11-04 06:10] LABS: URINE CASTS NONE SEEN; URINE CRYSTALS NONE SEEN; URINE SMALL ROUND CELLS NONE SEEN; URINE YEAST PRESENT
[2019-11-04 06:11] LABS: ALB/GLOB RATIO 1.1; ALBUMIN 2.9 g/dL (3.5-5.0); CREATININE 3.2 mg/dL (0.5-0.9); POTASSIUM 5.3 mmol/L (3.5-5.1); TOTAL BILIRUBIN 0.87 mg/dL (0.20-1.00); TOTAL PROTEIN 5.6 g/dL (6.3-8.3)
[2019-11-04] MEDS: LEVAQUIN 250 MG/D5W 250 MG/50 ML IVPB IV SCH (07:27)
--- NOTE | 2019-11-04 07:27 | Diag Imaging Result Doc PS360 ---
EXAM: CHEST-PORTABLE - 11/04/2019 HISTORY: dyspnea TECHNIQUE: Portable chest COMPARISON: 11/03/2019 FINDINGS: There is been mild decrease in basilar infiltrates/atelectasis. There is persistent small left pleural effusion. There is no evidence of pneumothorax. Heart size appears of decreased mildly. PICC remains in place. IMPRESSION: Mild decrease in basilar infiltrates/atelectasis. Electronically signed by Abhilash Oconnor 11/04/2019 7:25 AM
[2019-11-04] MEDS: M.V.I.-12 10 ML, FOLIC ACID 1 MG, MAGNESIUM SULFATE 1 GM, THIAMINE 100 MG in NS 1,000 ML IV SCH (08:11)
[2019-11-04] MEDS: SOLU-MEDROL IV SCH (08:11)
[2019-11-04] MEDS ORDERED: CALCIUM GLUCONATE 2 GM in NS 100 ML IV ONE (08:57)
[2019-11-04 08:58] LABS: ANISOCYTOSIS 1+; BURR CELLS 1+; HYPOCHROM 1+; LYMPHS 2 % (21-51); MONO 2 % (1-9); POIKILOCYTOSIS 1+; SEGS 96 % (42-75)
[2019-11-04] MEDS ORDERED: ALBUTEROL 0.5% INH CONC FOR HYPERKALEMIA INH ONE (08:58)
[2019-11-04] MEDS ORDERED: HUMULIN R SUBQ ONE (08:59)
[2019-11-04] MEDS ORDERED: D50W SYRINGE IV ONE (09:11)
[2019-11-04] MEDS ORDERED: HUMULIN R IV ONE (09:11)
--- NOTE | 2019-11-04 09:31 | PROGRESS NOTE ---
DATE: 11/04/2019 LENGTH OF STAY: Seventeen days. SUBJECTIVE: Ms. Talavera this morning continues to be remarkably stuporous. Will barely grimace to painful stimulation. No new complaints. Last night, I was able to speak again with the family, explaining to them the findings on the CT scan which suggested that the patient had free air in the abdomen, concerning for a perforated viscus. I also made them aware about the worsening renal function and did tell them that in putting everything together, Ms. Talavera's condition continues to be worsening and her prognosis is now critical and extremely poor. They were going to think about this and give us feedback this morning. OBJECTIVE: Her blood pressure is 134/68, pulse of 95, respirations are 19, temperature 97.7 degrees, the patient is saturating 97% on the BiPAP. General Examination: Ms. Talavera is a 74- year-old, elderly, female. She is in bed. She is in respiratory distress. HEENT: Mucosa is pink and moist. Anicteric. Acyanotic. Neck: Supple. Chest: Air entry is bilaterally reduced. There are crackles and end-expiratory wheezing in the lung jordan. Cardiovascular: Regular rate and rhythm with occasional extrasystolic beats. No murmurs, no rubs, no gallops. GI: Abdomen is soft. It is globally distended and tender since patient grimaces with palpation all over the abdominal wall. There is peritoneal reaction. Bowel sounds present but extremely hypoactive. There is also an umbilical hernia. Extremities: There is 2+ pedal edema. The patient's lower extremities look slightly dusky. There is edema on the lateral aspect of the abdominal wall as well as the upper thighs. GEOGRAPHY FACULTY MEMBER: Patient continues to be verbally nonresponsive. She will barely open the eyes to extreme painful stimulation. She will also open the eyes to palpate in the abdomen. She withdraws to painful stimulation. Ins and Outs: Urine output was only 40 charted the whole of yesterday. She is currently 30,652 mL of fluid positive. Imaging Studies: Chest x-ray shows mild decrease in bibasilar infiltrate/atelectasis. There is persistent small left pleural effusion. Laboratory Data: WBCs 15.87, hemoglobin is 8.4, platelet count of 91,000. Chemistry is also reviewed. Sodium is 151, potassium is 5.3. The patient is more acidotic. BUN is up to 121, creatinine is also up to 3.2. So far, repeat blood cultures have been 48 hours negative. ASSESSMENT: 1. Acute on chronic hypoxemic respiratory failure. Patient is day 2 post extubation, was on the ventilator for 4 days. She is now on BiPAP. 2. Left lower lobe Pseudomonas aeruginosa pneumonia. Patient continues to be on meropenem and Levaquin. Today is day 1. The patient used to be on cefepime for 3 days. White cell count slightly reduced this morning. 3. Severe chronic obstructive pulmonary disease with moderate to severe exacerbation. We will continue with current management. 4. Massive gastrointestinal bleed with hemoglobin dropping to 5.6. The patient is status post 3 units of packed red blood cells transfusion, 1 platelet transfusion. She underwent esophagogastroduodenoscopy. 5. Multiple gastric duodenal ulcers with a bleeding duodenal ulcer. Patient is status post esophagogastroduodenoscopy with endoscopic treatment of the bleeding ulcer. She is currently on Protonix. 6. Fluid overload. Ms. Talavera is more than 30,000 mL of fluid positive. Positive jugular venous distention. Lungs seem to have some crackles. Unfortunately, she has not responded to Lasix therapy and we have consulted nephrology. 7. Oliguric acute kidney injury, most likely from acute tubular necrosis. The patient's renal function continues to be worsened and the urine output has remarkably reduced. 8. Free air in the anterior abdomen, concerning for a perforated viscus associated with peritoneal reaction. This was found out yesterday that the patient has acute peritonitis. Surgery was consulted. Patient was seen by Dr. Parker who spoke with the family members about Ms. Talavera not being a surgical candidate. 9. Electrolyte and acid-base disturbance (hyperkalemia and mild high anion gap metabolic acidosis). We think this is all secondary to the renal failure. 10. Altered mental status which is multifactorial. I think, at this point, uremic encephalopathy has also added to the list. PLAN: In general, I think Ms. Talavera continues to be extremely critical. She has now developed two more complications on top of her already critical conditions including an acute peritonitis secondary to a perforated viscus with free air in the abdomen and also worsening acute kidney injury. She continues to be extremely critical. She is Do Not Resuscitate level 2. No CPR but the family was okay with re-intubation and doing everything. Yesterday, I spoke extensively to them and made them aware that she currently has a surgical condition which she cannot go because of being an extremely poor surgical candidate and that her peritonitis will just get worse and the fact that her kidney function has also been progressively getting worse. They are all negative prognostic features and that Ms. Talavera will most likely not be discharged from the hospital. I am still pending for them to come back today and discuss with them what decisions they have arrived. Critical time spent is 1 hour. cc: Saud Frazier MD
[2019-11-04] MEDS: NS 500 ML IV SCH (13:19)
[2019-11-04] MEDS ORDERED: ATIVAN IV PRN (14:56)
[2019-11-04] MEDS ORDERED: TRANSDERM-SCOP TD SCH (15:00)
[2019-11-04] MEDS: MORPHINE IV PRN (15:05)
--- NOTE | 2019-11-04 15:16 | PROGRESS NOTE ---
DATE: 11/04/2019 This afternoon, I met with the family comprising of one of the older sons, two [id number], another female family member, and a grandson. We discussed about the critical nature of Ms. Talavera's clinical picture at this point and the fact that her prognosis continues to be remarkably poor. The family told me that they have made a decision and they have also come to the realization that any clinical improvement is almost impossible and they have decided to transition from therapeutic care to comfort care measures. They do understand that by transitioning LOAN COUNSELOR, we are going to withdraw any medications or any measures that has potential to prolong life. They have advised that we stop the antibiotics, we stop any fluids, and keep her as comfortable as possible. They also do understand that we will transfer Ms. Talavera to a regular medical floor and we will consult palliative nurse and Hospice Team tomorrow to evaluate for possible GIP. Ms. Talavera will now be Do Not Resuscitate level 1 and transition to LOAN COUNSELOR. cc: Saud Frazier MD MTDD
--- NOTE | 2019-11-04 16:01 | GENERAL SURGERY PROGRESS NOTE ---
DATE: 11/04/2019 SUBJECTIVE: The family elected not to pursue surgery yesterday. They were debating comfort measures. Otherwise, she remains with a low-grade tachycardia. OBJECTIVE: No fevers. Blood pressure 164/70. In general, she is not responsive. She is on BiPAP. Cardiovascular normal. Low-grade tachycardia. Pulmonary on BiPAP. Abdomen is distended, firm with some involuntary guarding. White count 15, hematocrit 27. I reviewed her ABG. It shows a worsening base deficit. Her potassium is up to 5.3. Her creatinine is up to 3.2. She is for the most part oliguric to anuric according to her Rogers catheter output. ASSESSMENT AND PLAN: A 74-year-old female with multiple issues. The family elected to not pursue surgical repair of what is most likely perforated peptic ulcer or duodenal ulcer. As such, we will continue current measures and anticipate comfort measures later. We are available if we can help. cc: Kaela Parker MD
--- NOTE | 2019-11-04 17:10 | PROVIDER PROGRESS NOTE ---
Progress Note Dr. Denis Progress Note/Pulmonary and or critical care Subjective: The patient is lying in bed with eyes closed. She is on a BiPAP mask. She appears stuporous. She remains unresponsive to any verbal or tactile stimuli. Abdomen/pelvis CT yesterday suggested a perforated viscus with free air in the abdomen. No family at the bedside. Input is appreciated from Dr. Frazier and other teams on the case. Objective: Vital Signs: T 97.9 (No fever in last 24 hours), W[place] 100, RR 21, BP 164/70 and SaO2 96% on BiPAP 35%. I/O: +1200 ml Physical Examination: General: Lying in bed with eyes closed. Appears stuporous. HEENT: Normocephalic. Trachea midline. Chest: Auscultation reveals diminished breathing sounds bilaterally. CVS: Regular rate and rhythm with S1 and S2 appreciated. Abdomen: Soft. Distended. Decreased bowel sounds in all 4 quadrants noted. Extremities: BLE and BUE 2+ with ongoing weeping. No cyanosis. No clubbing. Bruises on BLE noted. Neuro: Responsive to pain stimuli only. Not answering questions or following commands. Labs and Radiology: Laboratory Results 11/04/19 11/04/19 11/04/19 04:48 05:00 05:00 WBC RBC Hgb Hct MCV MCH MCHC RDW Std Deviation Plt Count MPV Immature Gran % (Auto) Neut % (Auto) Lymph % (Auto) [place] % (Auto) Eos % (Auto) Baso % (Auto) Immature Gran # (Auto) Neut # (Auto) Lymph # (Auto) [place] # (Auto) Eos # (Auto) Baso # (Auto) Segmented Neutrophils Lymphocytes Monocytes Hypochromia Poikilocytosis Anisocytosis Macrocytosis Bruno Cells Specimen Type ARTERIAL Sample Site R RADIAL pH 7.25 L pCO2 44 pO2 72 HCO3 19.0 L Base Excess -7.5 L Oxyhemoglobin 93.9 L ABG O2 Sat (Calculated) 11.5 L ABG O2 Saturation 96.9 ABG Carboxyhemoglobin 2.10 ABG Methemoglobin 0.9 Maximiliano Test YES A-a O2 Difference 123.0 Total Hemoglobin 8.6 L Lactate 0.90 Blood Gas Modality BI PAP Spontaneous Rate 12 FiO2 % 35.0 Inspiratory BiPAP 12.0 Expiratory BiPAP 8.0 Sodium Potassium Chloride Carbon Dioxide Anion Gap BUN Creatinine Estimated GFR/1.73 m2 BUN/Creatinine Ratio Glucose Calculated Osmolality Calcium Total Bilirubin AST ALT Alkaline Phosphatase Total Protein Albumin Globulin Albumin/Globulin Ratio Urine Source CATH Urine Color ORANGE Urine Turbidity TURBID Urine pH 6.0 Ur Specific [place] 1.026 Urine Protein 300 A Ur Glucose (Stick) NEGATIVE Ur Ketones (Stick) 10 A Urine Blood LARGE A Urine Nitrite NEGATIVE Urine Bilirubin NEGATIVE Urobilinogen Dipstick NORMAL Urine Leukocytes LARGE A Urine WBC (Auto) TNTC A Urine RBC (Auto) TNTC A U Epithel Cells (Auto) <10 Urine Bacteria (Auto) NEGATIVE Ur Eosinophil Smear NONE SEEN Urine Crystals NONE SEEN Small Round Cells NONE SEEN Urine Casts NONE SEEN Urine Yeast-like Cells PRESENT Ur Random Creatinine Ur Random Sodium Ur Random Urea Nitrogn 11/04/19 11/04/19 11/04/19 05:00 05:16 05:16 WBC 15.87 H RBC 2.86 L Hgb 8.4 L Hct 27.0 L MCV 94.4 MCH 29.4 MCHC 31.1 L RDW Std Deviation 17.4 H Plt Count 91 L MPV 12.4 H Immature Gran % (Auto) 1.3 H Neut % (Auto) 96.2 H Lymph % (Auto) 1.2 L [place] % (Auto) 1.3 L Eos % (Auto) 0.0 Baso % (Auto) 0.0 Immature Gran # (Auto) 0.21 H Neut # (Auto) 15.27 H Lymph # (Auto) 0.19 L [place] # (Auto) 0.20 Eos # (Auto) 0.00 Baso # (Auto) 0.00 Segmented Neutrophils 96 H Lymphocytes 2 L Monocytes 2 Hypochromia 1+ Poikilocytosis 1+ Anisocytosis 1+ Macrocytosis 1+ Bruno Cells 1+ Specimen Type Sample Site pH pCO2 pO2 HCO3 Base Excess Oxyhemoglobin ABG O2 Sat (Calculated) ABG O2 Saturation ABG Carboxyhemoglobin ABG Methemoglobin Maximiliano Test A-a O2 Difference Total Hemoglobin Lactate Blood Gas Modality Spontaneous Rate FiO2 % Inspiratory BiPAP Expiratory BiPAP Sodium 151 H Potassium 5.3 H Chloride 113 H Carbon Dioxide 19 L Anion Gap 19 BUN 121 H Creatinine 3.2 H Estimated GFR/1.73 m2 14 BUN/Creatinine Ratio 38 Glucose 104 Calculated Osmolality 339 Calcium 9.0 Total Bilirubin 0.87 AST 17 ALT 22 Alkaline Phosphatase 65 Total Protein 5.6 L Albumin 2.9 L Globulin 2.7 Albumin/Globulin Ratio 1.1 Urine Source Urine Color Urine Turbidity Urine pH Ur Specific [place] Urine Protein Ur Glucose (Stick) Ur Ketones (Stick) Urine Blood Urine Nitrite Urine Bilirubin Urobilinogen Dipstick Urine Leukocytes Urine WBC (Auto) Urine RBC (Auto) U Epithel Cells (Auto) Urine Bacteria (Auto) Ur Eosinophil Smear Urine Crystals Small Round Cells Urine Casts Urine Yeast-like Cells Ur Random Creatinine 86.1 H Ur Random Sodium 40 Ur Random Urea Nitrogn 275 Assessment: Acute on chronic hypoxemic and hypercapnic respiratory failure. Intubated on 10/30/19 for airway protection. Extubated on 11/02/19. Stay critical. Possible perforated viscus with free air identified in the abdomen by CT on 11/03/19. General Surgery is on board, but family elected not to pursue surgical repair. Acidemia with worsening AG metabolic acidosis. Severe COPD exacerbation with emphysema, pulmonary fibrosis and mild bibasilar pulmonary edema. Improved. No more wheezing noted. Pneumonia. Sputum culture on 10/30/19 grows Pseudomonas Aeruginosa which is sensitive to Cefepime. Kidney failure with electrolyte abnormality. Acute metabolic encephalopathy. ProBNP elevation. Echocardiogram on 10/18/19 showed moderately enlarged right atrium right ventricle with mildly reduced right ventricular systolic function. Prognosis is poor with the development of free air in the abdomen in the background of critical respiratory failure and severe encephalopathy. DNR-2. Plan: Supplemental oxygen as needed with BiPAP as backup. We will titrate supplemental oxygen to patients needs per clinical protocol. We keep monitoring patients clinical response closely. No benzo. We keep Haldol for anxiety as needed. We watch her mental status closely. Hopefully she will not require intubation again. Staff is still working with family about palliative care/comfort care. Bronchodilators and IV Solu-Medrol. Antibiotic (Cefepime). Diuresis as tolerated. Appropriate DVT and GI prophylaxis. Continue NPO. Evaluation time in minutes: 34 minutes.
[2019-11-05] MEDS: DUONEB (A & A) INH SCH ×5 (03:04→20:10)
[2019-11-05] MEDS: MORPHINE IV PRN ×5 (08:20→22:23)
--- NOTE | 2019-11-05 10:22 | GASTROENTEROLOGY PROGRESS NOTE ---
DATE: 11/05/2019 SUBJECTIVE: Ms. Talavera is a 74-year-old female. She is resting in bed. The patient is on a Ventimask. She is not responding to verbal or tactile stimuli. Family is at the bedside. She is on comfort measures with a DNR level 1. OBJECTIVE: Vital Signs: Temperature 97.9 degrees, pulse 93, respirations 16, blood pressure 137/78, oxygen saturation 98% on Ventimask. The patient's weight is 204 pounds. BMI is 36.1 kg/m2. General: The patient is resting in bed on a Ventimask, unable to assess patient. HEENT: Pale conjunctivae. No icterus. PERRL. Neck: Supple. Lungs: Wheezing heard in the anterior jordan. Cardiovascular: Patient is tachycardic. Abdomen: Soft, obese. Active bowel sounds heard in all 4 quadrants. Extremities: No clubbing, no cyanosis. Generalized edema in the lower extremities. Neurologic: The patient is nonresponsive, unable to assess the patient. She is not responding to tactile or verbal stimuli. LABS: WBCs from 11/04 15.87, RBC 2.86, hemoglobin 8.4, hematocrit is 27.4, platelet count is 91. Sodium 151, potassium 5.3, chloride 113, carbon dioxide 19, anion gap is 19. BUN is 121, creatinine is 3.2, glucose 104, calcium 9.0. Total bilirubin is 0.87, AST is 17, ALT is 22, alkaline phosphatase 65, albumin is 2.9. The patient's urinalysis yesterday showed protein of 300, large amount of blood, large amount of leukocytes. X-RAYS: Chest x-ray yesterday showed mild decrease in bibasilar infiltrate/atelectasis. IMPRESSION AND PLAN: GI bleed Anemia COPD Duodenal ulcers Gastric ulcers PLAN: Ms. Talavera is a 74-year-old female with a history of hypertensive disease and chronic obstructive pulmonary disease. Gastroenterology is following her for a gastrointestinal bleed. The patient's hemoglobin and hematocrit today is 8.4 and 27.0. The patient is currently DNR level 1 with comfort measures only. She is currently on a Ventimask. We will sign off for now. Please call us for any further questions or concerns. This plan was discussed with Dr. Gibson. Dictated by HEDY Baeza for Jackson Gibson MD cc: Jackson Gibson MD I have seen and examined the patient myself and I agree with the above plan of care. Please call us with any questions or concerns. CHERYL
--- NOTE | 2019-11-05 13:33 | PROGRESS NOTE ---
DATE: 11/05/2019 SUBJECTIVE: I have seen and examined Ms. Talavera today. Family members were at the bedside. Ms. Talavera is currently on comfort care measures only. Palliative medicine is on board and hospice has been consulted. OBJECTIVELY: Vital Signs: Her current vitals blood pressure is 134/58, pulse of 92, respirations 18, temperature 98.3 degrees. Patient is saturating 100% on a non-rebreather. General: Ms. Talavera is a 74-year-old elderly female. She is in bed. She is in some respiratory distress. HEENT: Mucosa is pink and moist. Lower extremity is dusky. Chest: Air entry is bilaterally reduced. There is some diffuse crackles and rhonchi in both lungs. Cardiovascular: Regular rate and rhythm. Gastrointestinal: Abdomen is soft, globally distended. The patient continues to shows minimum grimaced on palpation. Bowel sounds is hypoactive. There is an umbilical hernia noted. Extremities: About 2+ pedal edema. Central Nervous System: Patient is unresponsive. Will barely grimace her forehead to painful stimulation. Also withdraws barely. Pupils are equal, very sluggish in response. The patient is remarkably more lethargic/stuporous this morning. LABORATORY DATA: No laboratory data. ASSESSMENT: 1. Acute on chronic hypoxemic respiratory failure. The patient was extubated. Today is day 3 post extubation. She was under the vent for 4 days. She is currently on a non-rebreather. 2. Left lower lobe pseudomonas aeruginosa pneumonia. 3. Severe chronic obstructive pulmonary disease with moderate to severe exacerbation. 4. Massive gastrointestinal bleed with hemoglobin dropping to 5.6. The patient is status post 3 PRBC transfusion, 1 platelet. 5. Multiple gastroduodenal ulcers with a bleeding duodenal ulcer. The patient is status post EGD with endoscopic treatment. 6. Fluid overload. 7. Oliguric acute kidney injury. The patient is currently anuric for most purposes. 8. Acute abdomen with free air in the anterior abdomen concerning for perforated viscus with peritoneal reaction. Patient is not a surgical candidate. Has already been evaluated by Dr. Parker. 9. Altered mental status. 10. Electrolyte abnormality. 11. Poor prognosis. 12. 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 PLAN: In general, Ms. Talavera has been in the hospital for 18 days. Initially presented because of shortness of breath, was found to be in respiratory failure. Initially was put on BiPAP. Unfortunately, after a couple days in the hospital, she had to be intubated. Her hospital course got complicated with anemia and GI bleed. She underwent EGD and bleeding ulcer endoscopic treatment. However, she continued to get complicated. Her kidney functions continued to get worse to decline and just about 3 days ago, she was found to have a perforated to have free air in her abdomen. She has really not shown any signs of improvement. Surgery has declared her not a surgical candidate. The family have decided to make her DNR and transition her to TESTING MANAGER. Palliative nurse has been consulted. Hospice has also been consulted for GIP evaluation. cc: Saud Frazier MD
[2019-11-06] MEDS: DUONEB (A & A) INH SCH ×3 (00:23→07:32)
[2019-11-06] MEDS: MORPHINE IV PRN ×2 (02:47→06:41)
[2019-11-06 04:05] VITALS: BP 106/53
--- NOTE | 2019-11-07 08:36 | DISCHARGE SUMMARY ---
ADMISSION DATE: 10/18/2019 DISCHARGE DATE: 11/06/2019 DATE AND TIME OF : 11/06/2019 at 0940 a.m. ADMISSION DIAGNOSES: 1. Acute on chronic hypoxemic hypercapnic respiratory failure with metabolic acidosis. 2. Chronic obstructive pulmonary disease exacerbation. 3. Severe hyponatremia, possibly secondary to her beer consumption. 4. Acute kidney injury. 5. Elevated proBNP. 6. Alcoholism. 7. Hypertensive heart disease. 8. Probable sepsis. DIAGNOSES AT TIME OF : 1. Acute on chronic hypoxemic respiratory failure, was extubated, had been intubated. 2. Left lower lobe Pseudomonas aeruginosa pneumonia. 3. Severe chronic obstructive pulmonary disease with [id number] exacerbation. 4. Massive gastrointestinal bleeding with a hemoglobin that dropped down to 5.6, receiving blood and platelets. 5. Multiple gastroduodenal ulcers with a bleeding duodenal ulcer. 6. Fluid volume overload. 7. Oliguric acute kidney injury. 8. Acute abdomen with free air in the anterior abdomen, concerning for perforated viscus with peritoneal reaction, not a surgical candidate, evaluated by Dr. Parker. 9. Altered mental status. 10. Electrolyte abnormality. 11. Poor prognosis with DO NOT RESUSCITATE level 1 and comfort care measures. 12. Comfort measures only status. CONSULTATIONS: 1. Neurology. 2. Dr. Milton Parker. 3. Dr. Jackson Gibson. 4. PICC line. 5. Palliative Care. SURGERIES/PROCEDURES: EGD performed to control bleeding by Dr. Trell Mccullough on 10/31/2019, with recommendations to keep n.p.o., do not replace NG tube for 48 hours, give blood, keep hemoglobin 7 to 8, PPI IV twice a day, avoid blood thinners and NSAIDs, and clear liquid diet if the patient was able to be extubated. HOSPITAL COURSE: On 10/18/2019, Ms. Alida Talavera, a 74-year-old, female, was brought in by the long term with low O2 saturations. She has a history of COPD and hyponatremia, hypertensive heart disease. Workup revealed elevated white blood cell count, hyponatremia, hypercarbia, metabolic acidosis, congestive heart failure. Troponins were slightly elevated. She was placed on BiPAP, given medication for agitation, given Lasix for fluid volume overload. She was found to have pneumonia that was positive for Pseudomonas aeruginosa, which was regan sensitive. She was initiated on antibiotics. It was noted that she drinks at least 6 to 8 beers on a daily basis, had not been eating or drinking, had abdominal pain with palpation. Initially, she was a full code. She had acute kidney injury. She eventually had to be intubated, and unfortunately, after several days, she was unable to be extubated. She remained confused. She was eventually made a DO NOT RESUSCITATE level 1 with comfort measures only, extubated for comfort measures, and transferred to the floor. It is noted that she was found to have multiple gastroduodenal ulcers after an EGD was performed by Dr. Mccullough. Recommendations were above. However, she just would not improve, and then she was found to have acute abdomen with free air, was evaluated by Dr. Parker, but was ruled out as a surgical candidate, and all of these factors led to discussion of DO NOT RESUSCITATE and comfort measures, and then she peacefully passed today at 9:40 a.m. Dictated by HEDY Gaxiola for Tirso Black MD Addendum: Patient seen and examined by myself. Agree with HEDY note. It reflects my assessment and plan. cc: HEDY Gaxiola MD [facility]
== END 2019-11-06 09:40 | disposition expired | DRG 871 ==
LOC: SUPCPDRO → ED 06:44 → SUATTDRO 09:40 → EDIPHOLD 09:40 → ICU 13:28 → 1N 11-04 16:44
PROVIDERS: ATTEND Internal Medicine
PROC: EN.HEAT (2019-10-31 09:55)